=== PATIENT | male | born 1935 | race Caucasian/White ===

== ENCOUNTER 2017-07-27 15:15 | Inpatient (IN) ==
--- NOTE | 2017-07-27 16:05 | Emergency Department Note ---
Disposition Clinical Impression: Hepatic encephalopathy, Weakness, Serum ammonia increased Cholelithiasis Qualifiers: Cholelithiasis location: gallbladder Cholecystitis presence: without cholecystitis Biliary obstruction: without biliary obstruction Qualified Code(s) : K80.20 - Calculus of gallbladder without cholecystitis without obstruction Disposition: Admitted As Inpatient Condition: Fair Time of Disposition: 19:14 General Adult HPI - General Chief complaint: ED Altered Mental Status Stated complaint: weak Time Seen by Provider: 07/27/17 15:16 Source: EMS Limitations: no limitations Nursing Notes Reviewed: Yes Vital Signs Reviewed: Yes - History of Present Illness HPI Narrative: 81-year-old male complains of generalized weakness 3 days along with bowel and bladder incontinence. Patient has a history of Alzheimer's dementia and had a recent fall one day ago while trying to use the bathroom. Patient complains of pain in the right upper quadrant right flank and right CVA area. Patient states he thinks he hit his head as well but is not on any anticoagulants. 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 Patient is on lactulose 20 mg twice a day. Pain Scale: 0 - Related Data Home Medications Medication Instructions Recorded Confirmed Lactobacillus Acidophilus/Pect 1 each PO DAILY 03/26/15 07/27/17 [Acidophilus-Pectin Capsule] Cyanocobalamin (Vitamin B-12) 1,000 mcg PO DAILY 04/27/15 07/27/17 [Vitamin B-12] Lactulose 20 gm PO BID 04/27/15 07/27/17 Multivitamin [Multi-Day Vitamins] 1 each PO DAILY 04/27/15 07/27/17 Mv-Mn/FA/Vit K1/Lycop/Lut/Zeax 2 tab PO DAILY 04/27/15 07/27/17 [Ocuvite Eye + Multi Tablet] Pantoprazole Sodium 40 mg PO DAILY 04/27/15 07/27/17 Furosemide [Lasix] 40 mg PO DAILY 07/29/15 07/27/17 Azithromycin [Azithromycin 6-Tab 250 mg PO PER PKG DI 07/27/17 07/27/17 Pack] Benzonatate [Tessalon] 100 mg PO TID PRN 07/27/17 07/27/17 Docusate [Colace] 100 mg PO BID PRN 07/27/17 07/27/17 Donepezil HCl [Aricept] 10 mg PO HS 07/27/17 07/27/17 Gabapentin [Neurontin] 300 mg PO BID 07/27/17 07/27/17 Ipratropium/Albuterol Neb [Duoneb] 3 ml IH Q6H PRN 07/27/17 07/27/17 Nadolol [Nadolol] 20 g PO DAILY 07/27/17 07/27/17 Spironolactone [Aldactone] 100 mg PO DAILY 07/27/17 07/27/17 Allergies Allergy/AdvReac Type Severity Reaction Status Date / Time acetaminophen [From Percocet] Allergy Nausea Verified 06/15/17 07:35 ciprofloxacin [From Cipro] AdvReac See Verified 07/27/17 17:25 Comments metronidazole [From Flagyl] AdvReac Dizziness Verified 07/27/17 17:25 Oxycodone [From Percocet] AdvReac Nausea Verified 07/27/17 17:25 All systems ED: reviewed and negative except as stated. Review of Systems: As Per HPI Constitutional: Reports: weakness. Denies: fever, chills ENT ED: Denies: congestion Cardiovascular: Denies: chest pain, palpitations Respiratory: Denies: cough, dyspnea, wheezes Gastrointestinal: Reports: abdominal pain Past Medical History - Past Medical History Attestation: Yes The following information was validated with the patient. Source: patient, nursing notes reviewed Medical history: Reports: cirrhosis, dementia, liver disease Psychiatric history: Reports: no psych history - Social History Smoking Status: Never smoker Smokeless Tobacco Status: No Alcohol use: Reports: none Drug use: Reports: none Physical Exam Vital Signs Temperature 97.5 F L 07/27/17 15:16 Pulse Rate 49 07/27/17 15:16 Respiratory Rate 16 07/27/17 15:16 Blood Pressure 137/55 07/27/17 15:16 O2 Sat by Pulse Oximetry 97 07/27/17 15:16 Temperature 97.5 F L 07/27/17 15:16 Pulse Rate 49 07/27/17 15:16 Respiratory Rate 16 07/27/17 15:16 Blood Pressure 137/55 07/27/17 15:16 O2 Sat by Pulse Oximetry 97 07/27/17 15:16 Oxygen Delivery Oxygen Delivery Room Air CONSTITUTIONAL: Alert and oriented X3, well-nourished, well appearing, in no apparent distress HEAD: Normocephalic; atraumatic. EYES: PERRL, no scleral icterus. NOSE: The nose is normal in appearance without rhinorrhea RESP: Normal chest excursion with respiration; breath sounds clear and equal bilaterally; no wheezes, rhonchi, or rales CARD: Regular rhythm, without murmurs, rub or gallop ABD: Non-distended; tender in the right upper quadrant to palpation, soft, without rigidity, rebound or guarding SKIN: Normal for age and race; warm and dry; no apparent lesions NEUROLOGICAL: Patient is alert and oriented times three. Cranial nerves III- XII are intact. Sensory and motor functions are intact. Strength is 5/5 for flexion and extension in all upper extremities. Patient has bilateral lower extremity neuropathy and weakness. Finger to nose testing is equal and normal bilaterally. No dysdiadochokinesis - General Limitations: no limitations General appearance: alert, in no apparent distress Course - Reevaluation(s) Reevaluation #2: Bedside ultrasound taken which shows no urinary retention. Urinary bladder currently 120 mL. Patient does have large prostate measuring approximately 3.09 x3.29 cm on ultrasound. Time: 15:05 Reevaluation #3: Evaluation complete. Patient being admitted, and patient is doing well Time: 19:16 Vital Signs Temperature 97.5 F L 07/27/17 15:16 Pulse Rate 49 07/27/17 15:16 Respiratory Rate 16 07/27/17 15:16 Blood Pressure 137/55 07/27/17 15:16 O2 Sat by Pulse Oximetry 97 07/27/17 15:16 Temperature 97.5 F L 07/27/17 15:16 Pulse Rate 55 07/27/17 19:40 Respiratory Rate 16 07/27/17 19:40 Blood Pressure 119/52 07/27/17 19:40 O2 Sat by Pulse Oximetry 98 07/27/17 19:40 Oxygen Delivery Oxygen Delivery Room Air Medical Decision Making - [facility] Narrative Medical decision making narrative: Generalized weakness with acute onset 2 days with urinary and bowel incontinence which is concerning for: Normal pressure hydrocephalus, cauda equina syndrome, UTI, intestinal neoplasm. CT head, CT abdomen and pelvis ordered and labs ordered. CT scan shows cholelithiasis without acute cholecystitis. Stable small amount of ascites, and cirrhosis. They do see a linear opacity in the lower lung [place] and suggests dedicated chest CT. Chest x-ray unremarkable for any intra-cardio pulmonary abnormalities. Patient's labs show hyponatremia 129 and elevated liver enzymes, elevated alkaline phosphatase, an elevated ammonia. Patient is already on lactulose. Patient started on IV normal saline to help correct sodium. Plan is for admission. I discussed this plan with the family and the patient who all except. Patient is being admitted for weakness and confusion secondary to hepatic encephalopathy with elevated ammonia and hyponatremia. Currently the patient is stable and doing well. Patient has been accepted for admission by hospitalist José Miguel Smith.1910 hrs. - Lab Data Lab results reviewed: Yes I reviewed the patient's lab results. Lab results narrative: Short CBC 07/27/17 Range/Units 16:30 WBC 4.7 (4.3-11.1) K/mcL Hgb 10.5 L (12.9-16.9) g/dL Hct 30.7 L (37.5-50.1) % Plt Count 81 L (140-400) K/mcL Neutrophils # 1.8 (1.6-8.9) K/mcL BMP 07/27/17 Range/Units 16:30 Sodium 129 L (136-145) mEq/L Potassium 4.5 (3.5-5.1) mEq/L Chloride 101 (98-107) mEq/L Carbon Dioxide 25 (23-29) mEq/L BUN 18 (8-23) mg/dL Creatinine 0.76 (0.70-1.30) mg/dL Glucose 129 H (70-105) mg/dL Calcium 8.1 L (8.6-10.3) mg/dL Cardiac Enzymes 07/27/17 Range/Units 16:30 Troponin I < 0.03 (< 0.04) ng/mL Liver Function 07/27/17 07/27/17 Range/Units 16:30 16:30 Total Bilirubin 1.1 H 1.1 H (0.3-1.0) mg/dL Direct Bilirubin 0.3 H (0.0-0.2) mg/dL AST 52 H 52 H (13-39) Units/L ALT 24 24 (7-52) Units/L Alkaline Phosphatase 108 H 107 H (34-104) Units/L Albumin 2.5 L 2.5 L (3.5-5.7) g/dL Urine 02/02/18 Range/Units 16:09 Urine Color Yellow (Yellow) Urine Clarity Cloudy A (Clear) Urine pH 6.0 (5.0-8.0) pH Units Ur Specific [place] 1.024 (1.010-1.025) Urine Protein Negative (Neg-Trace) mg/dL Urine Glucose (UA) Normal (Normal) mg/dL Result diagrams: 07/27/17 16:30 07/27/17 16:30 Lab Results 07/27/17 07/27/17 07/27/17 Range/Units 16:09 16:30 16:30 WBC 4.7 (4.3-11.1) K/mcL RBC 3.07 L (4.19-5.50) M/mcL Hgb 10.5 L (12.9-16.9) g/dL Hct 30.7 L (37.5-50.1) % MCV 100.0 (83.0-100.0) fL MCH 34.2 H (28.0-33.3) pg MCHC 34.2 (31.6-35.5) g/dL RDW 15.0 H (11.5-14.5) % Plt Count 81 L (140-400) K/mcL MPV 10.4 (9.4-12.4) fL Seg Neutrophils % 38.0 % Lymphocytes % 34.0 % Monocytes % 28.0 % Neutrophils # 1.8 (1.6-8.9) K/mcL Lymphocytes # 1.6 (0.6-4.6) K/mcL Monocytes # 1.3 (0.0-1.3) K/mcL Reactive Lymphocytes Present A (Not Present) Smudge Cells Present A (Not Present) Platelet Estimate Decreased L (Normal) Immature Plt Fraction 5.2 (1.1-6.1) % Sodium (136-145) mEq/L Potassium (3.5-5.1) mEq/L Chloride (98-107) mEq/L Carbon Dioxide (23-29) mEq/L BUN (8-23) mg/dL Creatinine (0.70-1.30) mg/dL Est GFR ( Amer) (> 60) Est GFR (Non-Af Amer) (> 60) BUN/Creatinine Ratio (6-26) Glucose (70-105) mg/dL Calculated Osmolality (280-300) Lactic Acid 1.9 (0.5-2.2) mmol/L Calcium (8.6-10.3) mg/dL Total Bilirubin (0.3-1.0) mg/dL Direct Bilirubin (0.0-0.2) mg/dL Indirect Bilirubin (0.0-1.2) mg/dL AST (13-39) Units/L ALT (7-52) Units/L Alkaline Phosphatase (34-104) Units/L Ammonia (16-53) mcmol/L Troponin I (< 0.04) ng/mL Serum Total Protein (6.4-8.9) g/dL Albumin (3.5-5.7) g/dL Globulin (2.4-3.5) g/dL Albumin/Globulin Ratio (1.1-2.2) Lipase (11-82) Units/L Urine Color Yellow (Yellow) Urine Clarity Cloudy A (Clear) Urine pH 6.0 (5.0-8.0) pH Units Ur Specific [place] 1.024 (1.010-1.025) Urine Protein Negative (Neg-Trace) mg/dL Urine Glucose (UA) Normal (Normal) mg/dL Urine Ketones Negative (Negative) mg/dL Urine Blood Negative (Negative) Urine Nitrite Negative (Negative) Urine Bilirubin Negative (Negative) Urine Urobilinogen Normal (Normal) mg/dL Ur Leukocyte Esterase Negative (Negative) Urine Microscopic RBC 0-3 (0-3) per hpf Urine Microscopic WBC 0-3 (0-3) per hpf Ur Squamous Epith Cells Few (None-Few) per lpf Urine Bacteria Few (None-Few) per hpf Hyaline Casts None Seen (None-Few) per lpf Urine Yeast Test Not Performed Ur Culture Indicated? NO (NO) 07/27/17 07/27/17 07/27/17 Range/Units 16:30 16:30 16:30 WBC (4.3-11.1) K/mcL RBC (4.19-5.50) M/mcL Hgb (12.9-16.9) g/dL Hct (37.5-50.1) % MCV (83.0-100.0) fL MCH (28.0-33.3) pg MCHC (31.6-35.5) g/dL RDW (11.5-14.5) % Plt Count (140-400) K/mcL MPV (9.4-12.4) fL Seg Neutrophils % % Lymphocytes % % Monocytes % % Neutrophils # (1.6-8.9) K/mcL Lymphocytes # (0.6-4.6) K/mcL Monocytes # (0.0-1.3) K/mcL Reactive Lymphocytes (Not Present) Smudge Cells (Not Present) Platelet Estimate (Normal) Immature Plt Fraction (1.1-6.1) % Sodium 129 L (136-145) mEq/L Potassium 4.5 (3.5-5.1) mEq/L Chloride 101 (98-107) mEq/L Carbon Dioxide 25 (23-29) mEq/L BUN 18 (8-23) mg/dL Creatinine 0.76 (0.70-1.30) mg/dL Est GFR ( Amer) > 60 (> 60) Est GFR (Non-Af Amer) > 60 (> 60) BUN/Creatinine Ratio 24 (6-26) Glucose 129 H (70-105) mg/dL Calculated Osmolality 272 L (280-300) Lactic Acid (0.5-2.2) mmol/L Calcium 8.1 L (8.6-10.3) mg/dL Total Bilirubin 1.1 H 1.1 H (0.3-1.0) mg/dL Direct Bilirubin 0.3 H (0.0-0.2) mg/dL Indirect Bilirubin 0.8 (0.0-1.2) mg/dL AST 52 H 52 H (13-39) Units/L ALT 24 24 (7-52) Units/L Alkaline Phosphatase 107 H 108 H (34-104) Units/L Ammonia (16-53) mcmol/L Troponin I < 0.03 (< 0.04) ng/mL Serum Total Protein 6.0 L 6.1 L (6.4-8.9) g/dL Albumin 2.5 L 2.5 L (3.5-5.7) g/dL Globulin 3.5 3.6 H (2.4-3.5) g/dL Albumin/Globulin Ratio 0.7 L 0.7 L (1.1-2.2) Lipase (11-82) Units/L Urine Color (Yellow) Urine Clarity (Clear) Urine pH (5.0-8.0) pH Units Ur Specific [place] (1.010-1.025) Urine Protein (Neg-Trace) mg/dL Urine Glucose (UA) (Normal) mg/dL Urine Ketones (Negative) mg/dL Urine Blood (Negative) Urine Nitrite (Negative) Urine Bilirubin (Negative) Urine Urobilinogen (Normal) mg/dL Ur Leukocyte Esterase (Negative) Urine Microscopic RBC (0-3) per hpf Urine Microscopic WBC (0-3) per hpf Ur Squamous Epith Cells (None-Few) per lpf Urine Bacteria (None-Few) per hpf Hyaline Casts (None-Few) per lpf Urine Yeast Ur Culture Indicated? (NO) 07/27/17 07/27/17 Range/Units 16:30 17:16 WBC (4.3-11.1) K/mcL RBC (4.19-5.50) M/mcL Hgb (12.9-16.9) g/dL Hct (37.5-50.1) % MCV (83.0-100.0) fL MCH (28.0-33.3) pg MCHC (31.6-35.5) g/dL RDW (11.5-14.5) % Plt Count (140-400) K/mcL MPV (9.4-12.4) fL Seg Neutrophils % % Lymphocytes % % Monocytes % % Neutrophils # (1.6-8.9) K/mcL Lymphocytes # (0.6-4.6) K/mcL Monocytes # (0.0-1.3) K/mcL Reactive Lymphocytes (Not Present) Smudge Cells (Not Present) Platelet Estimate (Normal) Immature Plt Fraction (1.1-6.1) % Sodium (136-145) mEq/L Potassium (3.5-5.1) mEq/L Chloride (98-107) mEq/L Carbon Dioxide (23-29) mEq/L BUN (8-23) mg/dL Creatinine (0.70-1.30) mg/dL Est GFR ( Amer) (> 60) Est GFR (Non-Af Amer) (> 60) BUN/Creatinine Ratio (6-26) Glucose (70-105) mg/dL Calculated Osmolality (280-300) Lactic Acid (0.5-2.2) mmol/L Calcium (8.6-10.3) mg/dL Total Bilirubin (0.3-1.0) mg/dL Direct Bilirubin (0.0-0.2) mg/dL Indirect Bilirubin (0.0-1.2) mg/dL AST (13-39) Units/L ALT (7-52) Units/L Alkaline Phosphatase (34-104) Units/L Ammonia 69 H (16-53) mcmol/L Troponin I (< 0.04) ng/mL Serum Total Protein (6.4-8.9) g/dL Albumin (3.5-5.7) g/dL Globulin (2.4-3.5) g/dL Albumin/Globulin Ratio (1.1-2.2) Lipase 51 (11-82) Units/L Urine Color (Yellow) Urine Clarity (Clear) Urine pH (5.0-8.0) pH Units Ur Specific [place] (1.010-1.025) Urine Protein (Neg-Trace) mg/dL Urine Glucose (UA) (Normal) mg/dL Urine Ketones (Negative) mg/dL Urine Blood (Negative) Urine Nitrite (Negative) Urine Bilirubin (Negative) Urine Urobilinogen (Normal) mg/dL Ur Leukocyte Esterase (Negative) Urine Microscopic RBC (0-3) per hpf Urine Microscopic WBC (0-3) per hpf Ur Squamous Epith Cells (None-Few) per lpf Urine Bacteria (None-Few) per hpf Hyaline Casts (None-Few) per lpf Urine Yeast Ur Culture Indicated? (NO) - Radiology Data Radiology results reviewed: Yes I reviewed the patient's radiology results. Chest X-Ray 07/27/17 15:35 IMPRESSION: Moderate hiatal hernia. Somewhat linear opacity is noted in the retrocardiac region of the left lung base likely correlating to the area seen on recent CT from 06/15/2017. Consider dedicated CT of the chest to evaluate for resolution. Otherwise no acute cardiopulmonary findings. D/ / 07/27/2017 16:01:48 Renée Fields MD / danny Interpreting Provider: Renée Fields MD Head CT 07/27/17 15:46 IMPRESSION: Stable CT brain with no acute intracranial abnormality. D/ / Josh Esquivel MD / Josh Esquivel MD Interpreting Provider: Josh Esquivel MD Abdomen/Pelvis CT 07/27/17 16:01 IMPRESSION: Cirrhosis and portal hypertension. Small volume ascites, similar to previous exam. Cholelithiasis. No evidence of acute cholecystitis. D/ / Elenita Erickson MD / Elenita Erickson MD Interpreting Provider: Elenita Erickson MD - EKG Data EKG #1 EKG attestation: Yes I reviewed and interpreted this EKG. EKG results narrative: EKG taken to July 2017 at 1526 shows sinus bradycardia at a rate of 53 beats minute with no acute ST elevations or depressions Unique, no gross widening or QT prolongation. No Wellens, no Brugada. His EKG for comparison taken 06/15/2017 also shows a sinus bradycardia at a rate of 58 bpm no signs of ischemia. EKG looks similar waveform to today's EKG. Attestation Statement - Attestation Attestation: I examined this patient and my medical decision-making was reviewed with the Resident Physician. I agree with the documented findings, disposition and treatment plan as described except to the extent set forth below. Patient presents to the ED by EMS with a chief complaint of generalized weakness. Frequent falls. Increasing altered mental status. Frequent stool incontinence. He is accompanied by his who states she just wants to make it better. Patient has dementia. He is on lactulose for liver disease and elevated ammonia levels. He has not had a fever or been coughing. On examination he is in no distress. His abdomen is soft. He is awake alert. He is oriented to self and place. Pupils equally reactive. Moving all extremities. Plan. Patient's sodium is a little lower than normal. His ammonia is elevated. His abdomen is soft. It is not felt to be septic. He is given some IV hydration. Lactulose for elevated ammonia. Will be admitted to the hospitalist.
[2017-07-27 16:38] LABS: Bilirubin,Urine Negative (Negative); Blood,Urine Negative (Negative); Clarity,Urine Cloudy (Clear); Color,Urine Yellow (Yellow); Glucose,Urine (UA) Normal (Normal); Ketones,Urine Negative (Negative); Leukocyte Esterase,Urine Negative (Negative); Nitrite,Urine Negative (Negative); Protein,Urine Negative (Neg-Trace); Specific Gravity,Urine 1.024 (1.010-1.025); Urobilinogen,Urine Normal (Normal)
[2017-07-27 16:43] LABS: Hyaline Casts,Urine None Seen per lpf (None-Few); RBC,Urine 0-3 per hpf (0-3); Squamous Epithelial Cell,Urine Few per lpf (None-Few); WBC,Urine 0-3 per hpf (0-3)
[2017-07-27 16:53] LABS: Bacteria,Urine Few per hpf (None-Few)
[2017-07-27 16:57] LABS: Hematocrit 30.7 % (37.5-50.1); Hemoglobin 10.5 g/dL (12.9-16.9); Immature Platelets 5.2 % (1.1-6.1); Mean Corpuscular HGB Conc 34.2 g/dL (31.6-35.5); Mean Corpuscular Hemoglobin 34.2 pg (28.0-33.3); Mean Platelet Volume 10.4 fL (9.4-12.4); Monocytes # 1.3 K/mcL (0.0-1.3); Red Blood Count 3.07 M/mcL (4.19-5.50)
[2017-07-27 17:02] LABS: Platelet Count 81 K/mcL (140-400)
[2017-07-27 17:10] LABS: Alanine Aminotransferase 24 Units/L (7-52); Albumin 2.5 g/dL (3.5-5.7); Albumin/Globulin Ratio 0.7 (1.1-2.2); Alkaline Phosphatase 107 Units/L (34-104); Aspartate Amino Transferase 52 Units/L (13-39); BUN/Creatinine Ratio 24 (6-26); Bilirubin,Total 1.1 mg/dL (0.3-1.0); Blood Urea Nitrogen 18 mg/dL (8-23); Calcium 8.1 mg/dL (8.6-10.3); Carbon Dioxide 25 mEq/L (23-29); Chloride 101 mEq/L (98-107); Globulin 3.5 g/dL (2.4-3.5); Glucose 129 mg/dL (70-105); Osmolality,Calculated 272 (280-300); Potassium 4.5 mEq/L (3.5-5.1); Sodium 129 mEq/L (136-145); eGFR For African Americans > 60 (> 60); eGFR For Non-African Americans > 60 (> 60)
[2017-07-27 17:13] LABS: Albumin 2.5 g/dL (3.5-5.7); Albumin/Globulin Ratio 0.7 (1.1-2.2); Bilirubin,Direct 0.3 mg/dL (0.0-0.2); Bilirubin,Indirect 0.8 mg/dL (0.0-1.2); Bilirubin,Total 1.1 mg/dL (0.3-1.0); Globulin 3.6 g/dL (2.4-3.5); Total Protein 6.1 g/dL (6.4-8.9)
[2017-07-27] MEDS ORDERED: 0.9 % Sodium Chloride 1,000 ML IVC ONE (17:52)
[2017-07-27] MEDS ORDERED: Lactulose Oral Soln 20 GM/30 ML UDC PO ONE (17:54)
[2017-07-27 18:04] LABS: Lymphocytes # 1.6 K/mcL (0.6-4.6); Neutrophils # 1.8 K/mcL (1.6-8.9); Platelet Estimate Decreased (Normal); Reactive Lymphocytes Present (Not Present); Smudge Cells Present (Not Present)
[2017-07-27] MEDS ORDERED: Naloxone 0.4 MG/ML INJ IVP PRN (20:35)
[2017-07-27] MEDS ORDERED: Benzonatate 100 MG CAPSULE PO PRN (20:38)
--- NOTE | 2017-07-27 20:50 | Internal Med History&Physical ---
<Reginaldo Gruber - Last Filed: 07/27/17 22:43> Date of Encounter: 07/27/17 Time of Encounter: 20:44 Assessment and Plan (1) Acute encephalopathy Current visit: Yes Status: Acute Acute encephalopathy, likely secondary to liver cirrhosis of unknown etiology vs. dementia vs. infectious etiology Patient is generalized weakness and increased confusion, ammonia level 69 in a known hepatic cirrhosis patient Patient has been having loose stools associated with lactulose, however he also has increased ascites due to portal hypertension It is challenging to discern the degree to which cirrhosis is impacting his mental function vs. baseline dementia Additionally, CXR does show possible infiltrates in the Left lower lobe, which could represent pneumonia in a patient who has had recent URI symptoms We will increase the patient's lactulose to TID, start IV Levaquin for suspected pneumonia (2) Pneumonia Current visit: Yes Status: Suspected Left lower lobe pneumonia, suspected Patient has been treated for recent URI symptoms with azithromycin and has not improved CXR shows retrocardiac haziness that could represent infiltrate in the LLL We will get blood cultures and treat for suspected CAP with IV Levaquin Qualifiers: Pneumonia type: due to unspecified organism Laterality: left Lung location: lower lobe of lung Qualified Code(s): J18.1 - Lobar pneumonia, unspecified organism (3) Dementia Current visit: Yes Status: Acute Alzheimer's dementia with some basline independence with ADLs According to family, his baseline mental status is usually fairly good, and he just becomes forgetful at times I will continue his home medications and treat hepatic encephalopathy in hopes of improving mental status Qualifiers: Dementia type: Alzheimer's disease Alzheimer's disease onset: late-onset Dementia behavioral disturbance: without behavioral disturbance Qualified Code (s): G30.1 - Alzheimer's disease with late onset; F02.80 - Dementia in other diseases classified elsewhere without behavioral disturbance; F02.80 - Dementia in other diseases classified elsewhere without behavioral disturbance; F02.80 - Dementia in other diseases classified elsewhere without behavioral disturbance (4) Cirrhosis Current visit: Yes Status: 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 Patient currently in hyperammonemic state We will increase lactulose to TID Although he has associated portal hypertension, the patient is having suspected symptomatic bradycardia We will hold nadolol Qualifiers: Hepatic cirrhosis type: unspecified hepatic cirrhosis Ascites presence: with ascites Qualified Code(s): K74.60 - Unspecified cirrhosis of liver (5) Bradycardia Current visit: Yes Status: Acute Bradycardia that is possibly symptomatic The patient has been weak and has had falls recently On presentation, his HR has remained <60bpm consistently The patient may be experiencing symptomatic bradycardia which could impact his ability to ambulate appropriately I will place the 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 dementia vs. generalized weakness/deconditioning vs. symptomatic bradycardia Patient will be placed on fall precautions PT/OT Consult in the morning (7) Pancytopenia Status: Chronic Chronic pancytopenia with worsening anemia Hgb 10.5, down from 11.5 on last visit. MCV 100 Apparently has a history of pancytopenia and has been seen by oncology/ hematology No evidence of acute bleeding. No hematemasis, hematochezia, melena I will check occult blood in the stool, and I will check MMA/B12 considering AMS /Weakness + macrocytic anemia Consider GI consult as needed (8) DVT prophylaxis Current visit: Yes Status: Acute SCDs for now, patient is pancytopenic with cirrhosis. We will check coag panel Internal Medicine - H&P: HPI Chief complaint: Confusion and weakness Admitted From: Emergency Dept Plans for Post Hospital Care: Home History of present illness: Mr. Meneses is a 81 year old male with a history of hepatic cirrhosis, Alzheimer's , esophageal varices, hiatal hernia, gastric ulcers who presents to the ED with 4 day history of generalized weakness and altered mental status. The patient has apparent long-term hepatic cirrhosis of unknown etiology which has not acutely worsened over the past 2-3 months. Specifically, in May he started to become extremely confused at different times, and has been more weak. In the past week he has become increasingly confused as noted by his family. He apparently has had falls at least once over the last 3 days each day. Additionally, patient had an episode of urinary and bowel incontinence earlier today which he has not previously experienced. Apparently this episode was because he was unable to make it to the bathroom in time. His family is concerned because they said this is not like him. He does have a history of dementia, however he usually is somewhat independent in his ADLs and can walk with a walker with some assistance and use the restroom by himself. The past 3 days he has fallen in the bathroom twice because he has leaned too far over while toileting. The family's knowledge she has had no loss of consciousness. He does think he may have hit his head but he is not sure. In addition to these symptoms, the patient's family mentions that he has been battling bronchitis for the past 2 weeks which she has been unable to care Has had 2 courses of azithromycin which have not been helpful. He denies chest pain, severe shortness of breath, abdominal pain. He does have some nausea and vomiting and he takes lactulose daily so he does have some diarrhea. Apart from episode of bladder and bowel control loss this afternoon, he has had no other urinary or bowel symptoms. Past Med Surg Social Fam HX - Past Medical History Medical history: cirrhosis, dementia, liver disease Psychiatric history: no psych history - Social History Smoking Status: Never smoker Smokeless Tobacco Status: No Alcohol use: none Drug use: none Internal Medicine - H&P: Meds Lactobacillus Acidophilus/Pect [Acidophilus-Pectin Capsule] 1 each PO DAILY 08/09 [History] Cyanocobalamin (Vitamin B-12) [Vitamin B-12] 1,000 mcg PO DAILY 04/27/15 [ History] Lactulose 20 gm PO BID 04/27/15 [History] Multivitamin [Multi-Day Vitamins] 1 each PO DAILY 04/27/15 [History] Mv-Mn/FA/Vit K1/Lycop/Lut/Zeax [Ocuvite Eye + Multi Tablet] 2 tab PO DAILY 04/27 [History] Pantoprazole Sodium 40 mg PO DAILY 04/27/15 [History] Furosemide [Lasix] 40 mg PO DAILY 07/29/15 [History] Azithromycin [Azithromycin 6-Tab Pack] 250 mg PO PER PKG DI 07/27/17 [History] Benzonatate [Tessalon] 100 mg PO TID PRN 07/27/17 [History] Docusate [Colace] 100 mg PO BID PRN 07/27/17 [History] Donepezil HCl [Aricept] 10 mg PO HS 07/27/17 [History] Gabapentin [Neurontin] 300 mg PO BID 07/27/17 [History] Ipratropium/Albuterol Neb [Duoneb] 3 ml IH Q6H PRN 07/27/17 [History] Nadolol [Nadolol] 20 g PO DAILY 07/27/17 [History] Spironolactone [Aldactone] 100 mg PO DAILY 07/27/17 [History] 3 Allergy/AdvReac Type Severity Reaction Status Date / Time acetaminophen [From Percocet] Allergy Nausea Verified 06/15/17 07:35 ciprofloxacin [From Cipro] AdvReac See Verified 07/27/17 17:25 Comments metronidazole [From Flagyl] AdvReac Dizziness Verified 07/27/17 17:25 Oxycodone [From Percocet] AdvReac Nausea Verified 07/27/17 17:25 All Systems PM: A 10-system review of systems was performed and is negative for pertinent findings except as documented above in the HPI. Review of systems: ROS is provided primarily from patient's family as the patient is not a reliable source. Constitutional: Denies fevers, chills, Admits to weight gain and generalized weakness. Head/Neck: Denies GREER, neck stiffness EENT: Denies vision changes/blurriness, rhinorrhea, congestion, sore throat CVS: Denies chest pain, palpitations, TERESA, orthopnea, PND. Admits to baseline edema in his LE's b/l. Pulm: Increased cough with sputum production over two weeks time. Occasional wheezing GI: Denies abdominal pain, melena, hematemasis. Admits to nausea and vomiting : Denies dysuria, increased frequency, urgency, hematuria Heme: Denies ease of bleeding or bruising MSK: Denies joint pain, limited ROM Skin: Denies rashes, ulcers, color changes Neuro: Denies GREER, paresthesias, focal deficits, ataxia. Admits to generalized weakness. - Constitutional Vitals: Temp Pulse Resp BP Pulse Ox 97.5 F L 55 16 119/52 98 07/27/17 15:16 07/27/17 19:40 07/27/17 19:40 07/27/17 19:40 07/27/17 19:40 Exam: Gen: Vitals noted. No acute distress. AAOx person and place HEENT: PERRL/EOMI, no obvious scleral icterus, oropharynx clear with poor dentition, Normocephalic, atraumatic Neck: Supple. No adenopathy. Cardiac: RRR, no murmur, +S1/S2 Pulmonary: Fine crackles heard in R. Lung base without other indication of rhonchi, wheezes. Abdomen: soft, nontender, BS noted, no guarding. No obvious fluid wave Back: Nontender throughout. MSK: ROM intact, no joint swelling noted Extremities: 1+ LE edema b/l that is apparently at baseline. No sore calf Neuro: A&Ox3, moves all extremities, no focal deficits Psych: Appropriate mood and behavior. Pleasantly confused Internal Med - H&P Results - Labs CBC & Chem 7: 07/27/17 16:30 07/27/17 16:30 <Jose Wilburn - Last Filed: 07/28/17 01:29> Date of Encounter: 07/28/17 Time of Encounter: 01:00 Past Med Surg Social Fam HX - Past Surgical History Surgical History: other (variceal banding/EGD) - Additional Family History Additional family history: No FH cirrhosis/PAIGE - Constitutional Vitals: Temp Pulse Resp BP Pulse Ox 98.4 F 50 15 104/57 97 07/28/17 00:04 07/28/17 00:04 07/28/17 00:04 07/28/17 00:04 07/28/17 00:04 General appearance: Present: cooperative, A&O X 2, pleasant - Head Head exam: Present: atraumatic, normal inspection - Eye Eye exam: Present: EOMI, PERRL. Absent: scleral icterus - Neck Neck exam general surgery: Present: full ROM, supple. Absent: tenderness, nuchal rigidity - Respiratory Respiratory exam: Present: rales (left base), rhonchi. Absent: chest wall tenderness, wheezes - Cardiovascular Cardiovascular exam: Present: RRR, +S1, +S2. Absent: diastolic murmur, systolic murmur - GI/Abdominal GI/Abdominal exam: Present: normal bowel sounds, soft. Absent: mass, tenderness - Extremities Exam Extremities exam: Present: warm, radial pulses palpable and symmetrical. Absent : calf tenderness, tenderness - Back Exam Back exam: Absent: CVA tenderness (L), CVA tenderness (R) - Neurological Exam Neurological exam: Present: altered, CN II-XII intact, no focal deficits - Skin Skin exam: Present: dry, warm Internal Med - H&P Results - Labs CBC & Chem 7: 07/27/17 16:30 07/27/17 16:30 - EKG Data -: EKG Interpreted by Myself (sinus bradycardia) - Diagnostic Studies Chest x-ray Status: image reviewed by me (left lower infiltrate) - Attending Attestation I discussed the patient [place], PMH, ROS, lab data, and exam findings with Dr. Gruber. I then saw and examined patient independently as well. I met with patient and his son. His son confirms patient has history of dementia; however, his current state is worse than his baseline. He has fallen several times in recent weeks, complaining of lightheadedness often. I noted his bradycardia and discussed with his son who also noted patient has had bradycardia at home. We are stopping his BB and will monitor his heart rate. Additionally, I suspect he has pneumonia based upon exam, history of bronchitis for 2 weeks, and his xray findings. We are therefore treating this as well. Patient's son is very agreeable and appreciates the plan. Other than my comments above and noted exam findings, I agree with Dr. Gruber' s assessment and plan.
[2017-07-27] MEDS ORDERED: Ipratropium/Albuterol Neb 3 ML IH PRN (22:00)
[2017-07-27] MEDS: Gabapentin 300 MG CAPSULE PO SCH (22:29)
[2017-07-27 23:36] LABS: INR 1.2; Prothrombin Time 13.3 Seconds (9.4-12.1)
[2017-07-28 03:49] LABS: Influenza A PCR Positive (Negative); Influenza B PCR Negative (Negative); Resp. Syncytial Virus PCR Negative (Negative)
[2017-07-28 04:59] LABS: Mean Corpuscular Hemoglobin 33.6 pg (28.0-33.3)
[2017-07-28 05:01] LABS: Basophils % 0.3 %; Eosinophils # 0.2 K/mcL (0.0-0.6); Eosinophils % 5.5 %; Hematocrit 29.4 % (37.5-50.1); Hemoglobin 9.8 g/dL (12.9-16.9); Immature Granulocytes % 0.3 % (0-4); Immature Platelets 5.2 % (1.1-6.1); Lymphocytes # 1.3 K/mcL (0.6-4.6); Lymphocytes % 36.2 %; Mean Corpuscular HGB Conc 33.3 g/dL (31.6-35.5); Mean Corpuscular Volume 100.7 fL (83.0-100.0); Mean Platelet Volume 10.6 fL (9.4-12.4); Monocytes # 0.8 K/mcL (0.0-1.3); Monocytes % 23.2 %; Nucleated Red Blood Cells 0.6 /100 WBC (0); Red Blood Count 2.92 M/mcL (4.19-5.50); Red Cell Distribution Width 14.8 % (11.5-14.5); Segmented Neutrophils % 34.5 %
[2017-07-28 05:23] LABS: BUN/Creatinine Ratio 27 (6-26); Blood Urea Nitrogen 17 mg/dL (8-23); Calcium 7.9 mg/dL (8.6-10.3); Carbon Dioxide 22 mEq/L (23-29); Chloride 105 mEq/L (98-107); Glucose 81 mg/dL (70-105); Osmolality,Calculated 271 (280-300); Potassium 4.7 mEq/L (3.5-5.1); Sodium 130 mEq/L (136-145); eGFR For African Americans > 60 (> 60); eGFR For Non-African Americans > 60 (> 60)
[2017-07-28 05:30] LABS: Neutrophils # 1.2 K/mcL (1.6-8.9); Platelet Count 68 K/mcL (140-400)
[2017-07-28 05:32] LABS: Platelet Estimate Decreased (Normal)
[2017-07-28] MEDS: Furosemide 40 MG TABLET PO SCH (08:59)
[2017-07-28] MEDS: Multivit/Ca/Min/Fe/FA 1 TAB TABLET PO SCH (08:59)
[2017-07-28] MEDS: Cyanocobalamin (B-12) 1,000 MCG TABLET PO SCH (08:59)
[2017-07-28] MEDS: Lactulose Oral Soln 20 GM/30 ML UDC PO SCH ×3 (08:59→20:02)
[2017-07-28] MEDS: Lactobacillus 1 EACH CAP.SPRINK PO SCH (08:59)
[2017-07-28] MEDS: Gabapentin 300 MG CAPSULE PO SCH ×2 (08:59→20:02)
[2017-07-28] MEDS: MULTI PO SCH (09:00)
[2017-07-28] MEDS: OCUVITE EYE PO SCH (09:00)
[2017-07-28] MEDS: Levofloxacin 750 MG/150 ML 750 MG/150 ML BAG IVPB SCH (09:00)
--- NOTE | 2017-07-28 14:15 | Event Note ---
Date of Encounter: 07/28/17 Time of Encounter: 13:05 Patient is an 81y/o male admitted for acute change in mental status secondary to hepatic encephalopathy and PNA. Pt positive for influenza and started on Tamiflu. Pt seen and examined with family present at bedside. As per family, pt's mentation improved from previous day will continue Lactulose, IV abx will f/u blood cultures labs and vitals reviewed.
[2017-07-28] MEDS ORDERED: Ondansetron 4 MG/2 ML VIAL IVP PRN (15:37)
[2017-07-28] MEDS: traMADol 50 MG TABLET PO PRN ×2 (16:56→23:00)
[2017-07-29 05:04] LABS: Immature Granulocytes % 0.3 % (0-4)
[2017-07-29 05:05] LABS: Basophils % 0.6 %; Eosinophils # 0.1 K/mcL (0.0-0.6); Eosinophils % 3.9 %; Hematocrit 28.5 % (37.5-50.1); Hemoglobin 9.6 g/dL (12.9-16.9); Immature Platelets 4.6 % (1.1-6.1); Lymphocytes # 1.4 K/mcL (0.6-4.6); Lymphocytes % 44.2 %; Mean Corpuscular HGB Conc 33.7 g/dL (31.6-35.5); Mean Corpuscular Hemoglobin 33.7 pg (28.0-33.3); Mean Platelet Volume 10.1 fL (9.4-12.4); Monocytes # 0.7 K/mcL (0.0-1.3); Monocytes % 21.3 %; Neutrophils # 0.9 K/mcL (1.6-8.9); Nucleated Red Blood Cells 1.3 /100 WBC (0); Red Blood Count 2.85 M/mcL (4.19-5.50); Red Cell Distribution Width 14.8 % (11.5-14.5); Segmented Neutrophils % 29.7 %
[2017-07-29 05:06] LABS: Platelet Count 61 K/mcL (140-400)
[2017-07-29 05:24] LABS: BUN/Creatinine Ratio 21 (6-26); Blood Urea Nitrogen 16 mg/dL (8-23); Calcium 7.8 mg/dL (8.6-10.3); Carbon Dioxide 20 mEq/L (23-29); Chloride 106 mEq/L (98-107); Glucose 80 mg/dL (70-105); Magnesium 1.7 mg/dL (1.6-2.6); Osmolality,Calculated 270 (280-300); Phosphorous 3.9 mg/dL (2.7-4.5); Potassium 4.6 mEq/L (3.5-5.1); Sodium 130 mEq/L (136-145); eGFR For African Americans > 60 (> 60); eGFR For Non-African Americans > 60 (> 60)
[2017-07-29 05:39] LABS: Platelet Estimate Decreased (Normal)
[2017-07-29 05:40] LABS: Microcytosis Present (Not Present)
[2017-07-29] MEDS: traMADol 50 MG TABLET PO PRN (07:56)
[2017-07-29] MEDS: Lactobacillus 1 EACH CAP.SPRINK PO SCH (07:56)
[2017-07-29] MEDS: Furosemide 40 MG TABLET PO SCH (07:56)
[2017-07-29] MEDS: Cyanocobalamin (B-12) 1,000 MCG TABLET PO SCH (07:56)
[2017-07-29] MEDS: Levofloxacin 750 MG/150 ML 750 MG/150 ML BAG IVPB SCH (07:56)
[2017-07-29] MEDS: Gabapentin 300 MG CAPSULE PO SCH ×2 (07:56→20:57)
[2017-07-29] MEDS: Lactulose Oral Soln 20 GM/30 ML UDC PO SCH ×3 (07:56→20:56)
[2017-07-29] MEDS: MULTI PO SCH (07:57)
[2017-07-29] MEDS: Multivit/Ca/Min/Fe/FA 1 TAB TABLET PO SCH (07:57)
[2017-07-29] MEDS: OCUVITE EYE PO SCH (07:57)
--- NOTE | 2017-07-29 10:30 | Internal Med Progress Note ---
Date of Encounter: 07/29/17 Time of Encounter: 09:55 - Assessment and plan (1) Hepatic encephalopathy Current Visit: Yes Status: Acute Assessment and plan: Secondary to underlying Cirrhosis of the liver Titrate lactulose to 3-4 BM a day mental status improved from previous day will continue to closely monitor (2) Pneumonia Current Visit: Yes Status: Acute Assessment and plan: LLL PNA continue IV Levaquin f/u blood cultures Qualifiers: Pneumonia type: due to unspecified organism Laterality: left Lung location: lower lobe of lung Qualified Code(s): J18.1 - Lobar pneumonia, unspecified organism (3) Influenza A Current Visit: Yes Status: Acute Assessment and plan: continue Tamiflu for five days (day 2/5) (4) Bradycardia Current Visit: Yes Status: Acute Assessment and plan: (5) Dementia Current Visit: Yes Status: Chronic Assessment and plan: continue home meds Qualifiers: Dementia type: Alzheimer's disease Alzheimer's disease onset: late-onset Dementia behavioral disturbance: without behavioral disturbance Qualified Code (s): G30.1 - Alzheimer's disease with late onset; F02.80 - Dementia in other diseases classified elsewhere without behavioral disturbance; F02.80 - Dementia in other diseases classified elsewhere without behavioral disturbance; F02.80 - Dementia in other diseases classified elsewhere without behavioral disturbance (6) Frequent falls Current Visit: Yes Status: Chronic Assessment and plan: fall precautions PT/OT evaluation (7) Cirrhosis Current Visit: Yes Status: Chronic Qualifiers: Hepatic cirrhosis type: unspecified hepatic cirrhosis Ascites presence: with ascites Qualified Code(s): K74.60 - Unspecified cirrhosis of liver (8) Pancytopenia Current Visit: Yes Status: Chronic (9) Hypokalemia Current Visit: Yes Status: Resolved (10) DVT prophylaxis Current Visit: Yes Status: Acute Assessment and plan: SCD - Subjective Interval history: Patient seen and examined with family present at bedside. As per family, pt's mental status waxes and wanes, and his mentation is improved from previous day. He is currently AAO x 2. Unclear of the number of bowel movements patient has been having. As per nursing reports, pt only had 1 BM yesterday. As per family, patient had two BM today. - Constitutional Vitals: Temp Pulse Resp BP Pulse Ox 98.1 F 68 16 112/58 93 07/29/17 06:55 07/29/17 06:55 07/29/17 06:55 07/29/17 06:55 07/29/17 06:55 General appearance: Present: cooperative, A&O X 2, pleasant, no acute distress - Head Head exam: Present: atraumatic, normocephalic - Eye Eye exam: Present: conjuntiva pink, sclera anicteric - Respiratory Respiratory exam: Present: CTAB. Absent: rales, respiratory distress, wheezes - Cardiovascular Cardiovascular exam: Present: RRR, +S1, +S2. Absent: diastolic murmur, gallop, rubs, systolic murmur - GI/Abdominal GI/Abdominal exam: Present: normal bowel sounds, soft, no peritoneal signs. Absent: distended, tenderness - Extremities Exam Extremities exam: Present: warm, radial pulses palpable and symmetrical. Absent : calf tenderness - Neurological Exam Neurological exam: Present: alert - Psychiatric Psychiatric exam: Present: normal affect, normal mood Internal Medicine: Result - Labs CBC & Chem 7: 07/29/17 04:54 07/29/17 04:54 Labs: Short CBC 07/29/17 Range/Units 04:54 WBC 3.1 L (4.3-11.1) K/mcL Hgb 9.6 L (12.9-16.9) g/dL Hct 28.5 L (37.5-50.1) % Plt Count 61 L (140-400) K/mcL Neutrophils # 0.9 L (1.6-8.9) K/mcL BMP 07/29/17 04:54 Sodium 130 L Potassium 4.6 Chloride 106 Carbon Dioxide 20 L BUN 16 Creatinine 0.77 Glucose 80 Calcium 7.8 L - ABG Interpretation ABG results: PT/INR, D-dimer PT 13.3 Seconds (9.4-12.1) H 07/27/17 23:23 Consult Discharge Plan - Plan Referrals: Ki Lewis MD [Primary Care Provider] -
[2017-07-30 06:15] LABS: Mean Corpuscular Volume 99.7 fL (83.0-100.0)
[2017-07-30 06:17] LABS: Hematocrit 30.2 % (37.5-50.1); Hemoglobin 10.2 g/dL (12.9-16.9); Immature Platelets 4.3 % (1.1-6.1); Mean Corpuscular HGB Conc 33.8 g/dL (31.6-35.5); Mean Corpuscular Hemoglobin 33.7 pg (28.0-33.3); Mean Platelet Volume 10.6 fL (9.4-12.4); Monocytes # 0.9 K/mcL (0.0-1.3); Nucleated Red Blood Cells 0.6 /100 WBC (0); Red Blood Count 3.03 M/mcL (4.19-5.50); Red Cell Distribution Width 14.9 % (11.5-14.5)
[2017-07-30 06:24] LABS: Platelet Count 69 K/mcL (140-400)
[2017-07-30 06:56] LABS: BUN/Creatinine Ratio 19 (6-26); Blood Urea Nitrogen 14 mg/dL (8-23); Calcium 7.8 mg/dL (8.6-10.3); Carbon Dioxide 21 mEq/L (23-29); Chloride 104 mEq/L (98-107); Glucose 83 mg/dL (70-105); Magnesium 1.5 mg/dL (1.6-2.6); Osmolality,Calculated 272 (280-300); Phosphorous 3.6 mg/dL (2.7-4.5); Potassium 4.2 mEq/L (3.5-5.1); Sodium 131 mEq/L (136-145); eGFR For African Americans > 60 (> 60); eGFR For Non-African Americans > 60 (> 60)
[2017-07-30 07:02] LABS: Lymphocytes # 1.3 K/mcL (0.6-4.6); Neutrophils # 2.5 K/mcL (1.6-8.9)
[2017-07-30 07:03] LABS: Platelet Estimate Decreased (Normal); Reactive Lymphocytes Present (Not Present); Smudge Cells Present (Not Present)
[2017-07-30] MEDS: Cyanocobalamin (B-12) 1,000 MCG TABLET PO SCH (08:15)
[2017-07-30] MEDS: Levofloxacin 750 MG/150 ML 750 MG/150 ML BAG IVPB SCH (08:15)
[2017-07-30] MEDS: Gabapentin 300 MG CAPSULE PO SCH ×2 (08:15→21:42)
[2017-07-30] MEDS: Multivit/Ca/Min/Fe/FA 1 TAB TABLET PO SCH (08:16)
[2017-07-30] MEDS: Lactulose Oral Soln 20 GM/30 ML UDC PO SCH ×2 (08:16→21:42)
[2017-07-30] MEDS: Lactobacillus 1 EACH CAP.SPRINK PO SCH (08:16)
[2017-07-30] MEDS: Furosemide 40 MG TABLET PO SCH (08:16)
[2017-07-30] MEDS: MULTI PO SCH (08:17)
[2017-07-30] MEDS: OCUVITE EYE PO SCH (08:17)
[2017-07-30] MEDS ORDERED: Magnesium Sulfate 1 GM in D5% in Water 100 ML IVPB ONE (08:34)
--- NOTE | 2017-07-30 15:02 | Internal Med Progress Note ---
Date of Encounter: 07/30/17 Time of Encounter: 13:55 - Assessment and plan (1) Hepatic encephalopathy Current Visit: Yes Status: Acute Assessment and plan: Secondary to underlying Cirrhosis of the liver Titrate lactulose to 3-4 BM a day mental status improved from previous day will continue to closely monitor (2) Pneumonia Current Visit: Yes Status: Acute Assessment and plan: LLL PNA continue IV Levaquin blood cultures prelim reported no growth Qualifiers: Pneumonia type: due to unspecified organism Laterality: left Lung location: lower lobe of lung Qualified Code(s): J18.1 - Lobar pneumonia, unspecified organism (3) Influenza A Current Visit: Yes Status: Acute Assessment and plan: continue Tamiflu for five days (day 3/5) (4) Bradycardia Current Visit: Yes Status: Acute Assessment and plan: Noted to be bradycardia due to which Nodalol is on hold (5) Dementia Current Visit: Yes Status: Chronic Assessment and plan: continue home meds Qualifiers: Dementia type: Alzheimer's disease Alzheimer's disease onset: late-onset Dementia behavioral disturbance: without behavioral disturbance Qualified Code (s): G30.1 - Alzheimer's disease with late onset; F02.80 - Dementia in other diseases classified elsewhere without behavioral disturbance; F02.80 - Dementia in other diseases classified elsewhere without behavioral disturbance; F02.80 - Dementia in other diseases classified elsewhere without behavioral disturbance (6) Frequent falls Current Visit: Yes Status: Chronic Assessment and plan: fall precautions PT/OT evaluation (7) Cirrhosis Current Visit: Yes Status: Chronic Qualifiers: Hepatic cirrhosis type: unspecified hepatic cirrhosis Ascites presence: with ascites Qualified Code(s): K74.60 - Unspecified cirrhosis of liver (8) Pancytopenia Current Visit: Yes Status: Chronic (9) Hypokalemia Current Visit: Yes Status: Resolved (10) DVT prophylaxis Current Visit: Yes Status: Acute Assessment and plan: SCD - Subjective Interval history: Patient seen and examined with family present at bedside. As per family, pt's mental status waxes and wanes, and his mentation is improved from previous day. He is currently AAO x 2. Unclear of the number of bowel movements patient has been having. As per nursing reports, pt only had 1 BM yesterday. Will titrate up the lactulose therapy Awaiting PT/OT evaluation - Constitutional Vitals: Temp Pulse Resp BP Pulse Ox 97.5 F L 75 14 104/61 92 07/30/17 10:58 07/30/17 10:58 07/30/17 10:58 07/30/17 10:58 07/30/17 10:58 General appearance: Present: cooperative, A&O X 2, pleasant, no acute distress - Head Head exam: Present: atraumatic, normocephalic - Eye Eye exam: Present: conjuntiva pink, sclera anicteric - Respiratory Respiratory exam: Present: CTAB. Absent: respiratory distress, wheezes - Cardiovascular Cardiovascular exam: Present: RRR, +S1, +S2. Absent: diastolic murmur, gallop, rubs, systolic murmur - GI/Abdominal GI/Abdominal exam: Present: normal bowel sounds, soft, no peritoneal signs. Absent: distended, tenderness - Extremities Exam Extremities exam: Present: warm, radial pulses palpable and symmetrical. Absent : calf tenderness - Neurological Exam Neurological exam: Present: alert Internal Medicine: Result - Labs CBC & Chem 7: 07/30/17 05:59 07/30/17 05:59 Labs: Short CBC 07/30/17 Range/Units 05:59 WBC 4.7 D (4.3-11.1) K/mcL Hgb 10.2 L (12.9-16.9) g/dL Hct 30.2 L (37.5-50.1) % Plt Count 69 L (140-400) K/mcL Neutrophils # 2.5 (1.6-8.9) K/mcL BMP 07/30/17 05:59 Sodium 131 L Potassium 4.2 Chloride 104 Carbon Dioxide 21 L BUN 14 Creatinine 0.75 Glucose 83 Calcium 7.8 L - ABG Interpretation ABG results: PT/INR, D-dimer PT 13.3 Seconds (9.4-12.1) H 07/27/17 23:23 Consult Discharge Plan - Plan Referrals: Ki Lewis MD [Primary Care Provider] -
[2017-07-31 07:02] LABS: BUN/Creatinine Ratio 20 (6-26); Blood Urea Nitrogen 15 mg/dL (8-23); Calcium 7.8 mg/dL (8.6-10.3); Carbon Dioxide 22 mEq/L (23-29); Chloride 104 mEq/L (98-107); Glucose 91 mg/dL (70-105); Magnesium 1.7 mg/dL (1.6-2.6); Osmolality,Calculated 270 (280-300); Potassium 4.1 mEq/L (3.5-5.1); Sodium 130 mEq/L (136-145); eGFR For African Americans > 60 (> 60); eGFR For Non-African Americans > 60 (> 60)
[2017-07-31 07:15] LABS: Basophils % 0.1 %; Eosinophils % 0.9 %; Mean Platelet Volume 10.5 fL (9.4-12.4)
[2017-07-31 07:17] LABS: Eosinophils # 0.1 K/mcL (0.0-0.6); Hematocrit 30.3 % (37.5-50.1); Hemoglobin 10.3 g/dL (12.9-16.9); Immature Platelets 4.5 % (1.1-6.1); Lymphocytes # 1.8 K/mcL (0.6-4.6); Lymphocytes % 25.2 %; Mean Corpuscular Hemoglobin 33.6 pg (28.0-33.3); Mean Corpuscular Volume 98.7 fL (83.0-100.0); Monocytes # 1.3 K/mcL (0.0-1.3); Monocytes % 18.7 %; Neutrophils # 3.8 K/mcL (1.6-8.9); Nucleated Red Blood Cells 0.4 /100 WBC (0); Red Blood Count 3.07 M/mcL (4.19-5.50); Red Cell Distribution Width 14.7 % (11.5-14.5); Segmented Neutrophils % 54.1 %
[2017-07-31 08:14] LABS: Platelet Count 79 K/mcL (140-400)
[2017-07-31] MEDS: Multivit/Ca/Min/Fe/FA 1 TAB TABLET PO SCH (08:39)
[2017-07-31] MEDS: Cyanocobalamin (B-12) 1,000 MCG TABLET PO SCH (08:39)
[2017-07-31] MEDS: Lactobacillus 1 EACH CAP.SPRINK PO SCH (08:39)
[2017-07-31] MEDS: Gabapentin 300 MG CAPSULE PO SCH ×2 (08:39→20:25)
[2017-07-31] MEDS: Furosemide 40 MG TABLET PO SCH (08:39)
[2017-07-31] MEDS: Levofloxacin 750 MG/150 ML 750 MG/150 ML BAG IVPB SCH (08:40)
[2017-07-31] MEDS: MULTI PO SCH (08:40)
[2017-07-31] MEDS: OCUVITE EYE PO SCH (08:40)
[2017-07-31] MEDS: Lactulose Oral Soln 20 GM/30 ML UDC PO SCH ×4 (08:40→20:25)
--- NOTE | 2017-07-31 15:12 | Electrocardiograph Report ---
[place] [id number] Test Date: 2017-07-27 Pat Name: Daniel Meneses Department: 103 Room: 3A46 Gender: M [employer]: MAGALIE : 1935 Requested By: Rasheed Arias Order Number: [id number] Reading MD: Francisco Alanis MD Measurements Intervals [place] Rate: 53 P: -12 [place]: 163 QRS: 70 QRSD: 84 T: 65 QT: 461 QTc: 445 Interpretive Statements SINUS BRADYCARDIA Electronically Signed On 07-31-2017 15:11:25 EST by Francisco Alanis MD
--- NOTE | 2017-07-31 16:15 | Internal Med Progress Note ---
Date of Encounter: 07/31/17 Time of Encounter: 14:50 - Assessment and plan (1) Hepatic encephalopathy Current Visit: Yes Status: Acute Assessment and plan: Secondary to underlying Cirrhosis of the liver Titrate lactulose to 3-4 BM a day mental status improved from previous day will continue to closely monitor GI evaluation requested (2) Pneumonia Current Visit: Yes Status: Acute Assessment and plan: LLL PNA continue IV Levaquin blood cultures prelim reported no growth Qualifiers: Pneumonia type: due to unspecified organism Laterality: left Lung location: lower lobe of lung Qualified Code(s): J18.1 - Lobar pneumonia, unspecified organism (3) Influenza A Current Visit: Yes Status: Acute Assessment and plan: continue Tamiflu for five days (day 4/5) (4) Bradycardia Current Visit: Yes Status: Acute Assessment and plan: Noted to be bradycardia due to which Nodalol is on hold (5) Dementia Current Visit: Yes Status: Chronic Assessment and plan: continue home meds Qualifiers: Dementia type: Alzheimer's disease Alzheimer's disease onset: late-onset Dementia behavioral disturbance: without behavioral disturbance Qualified Code (s): G30.1 - Alzheimer's disease with late onset; F02.80 - Dementia in other diseases classified elsewhere without behavioral disturbance; F02.80 - Dementia in other diseases classified elsewhere without behavioral disturbance; F02.80 - Dementia in other diseases classified elsewhere without behavioral disturbance (6) Frequent falls Current Visit: Yes Status: Chronic Assessment and plan: fall precautions PT/OT evaluation recommended home health services (7) Cirrhosis Current Visit: Yes Status: Chronic Qualifiers: Hepatic cirrhosis type: unspecified hepatic cirrhosis Ascites presence: with ascites Qualified Code(s): K74.60 - Unspecified cirrhosis of liver (8) Pancytopenia Current Visit: Yes Status: Chronic (9) Hypokalemia Current Visit: Yes Status: Resolved (10) DVT prophylaxis Current Visit: Yes Status: Acute Assessment and plan: SCD - Subjective Interval history: Patient seen and examined with family present at bedside. I had a detailed discussion with the family in regards to patient's baseline mental status. As per family, pt's currently mental status has been the same since May 2017. At baseline he has remained AAO x 2 with intermittent moments of clarity. Family reports that the patient is having 2-3 BM daily however none of which are being documented or reported. Family states patient was supposed to see Dr. Jain for his initial appointment for his cirrhosis but has not been able to do so. Pt appears to be in do distressed. He is pleasantly confused and oriented to himself and family around. He is conversing appropriately. He was reported of having an episode of vomiting earlier today but currently denies any nausea. PT evaluation recommended home health services, however family states it would be more appropriate for him to be at a NH given his recurrent falls at home. - Constitutional Vitals: Temp Pulse Resp BP Pulse Ox 98.5 F 79 15 122/70 95 07/31/17 10:50 07/31/17 10:50 07/31/17 10:50 07/31/17 10:50 07/31/17 10:50 General appearance: Present: cooperative, A&O X 2, pleasant, no acute distress - Head Head exam: Present: atraumatic, normocephalic - Eye Eye exam: Present: conjuntiva pink, sclera anicteric - Respiratory Respiratory exam: Present: CTAB. Absent: accessory muscle use, rales, rhonchi, wheezes - Cardiovascular Cardiovascular exam: Present: RRR, +S1, +S2. Absent: diastolic murmur, gallop, rubs, systolic murmur - GI/Abdominal GI/Abdominal exam: Present: normal bowel sounds, soft, no peritoneal signs. Absent: distended, tenderness - Extremities Exam Extremities exam: Present: warm, radial pulses palpable and symmetrical. Absent : calf tenderness - Neurological Exam Neurological exam: Present: alert Internal Medicine: Result - Labs CBC & Chem 7: 07/31/17 06:33 07/31/17 06:33 Labs: Short CBC 07/31/17 Range/Units 06:33 WBC 7.0 (4.3-11.1) K/mcL Hgb 10.3 L (12.9-16.9) g/dL Hct 30.3 L (37.5-50.1) % Plt Count 79 L (140-400) K/mcL Neutrophils # 3.8 (1.6-8.9) K/mcL BMP 07/31/17 06:33 Sodium 130 L Potassium 4.1 Chloride 104 Carbon Dioxide 22 L BUN 15 Creatinine 0.75 Glucose 91 Calcium 7.8 L - ABG Interpretation ABG results: PT/INR, D-dimer PT 13.3 Seconds (9.4-12.1) H 07/27/17 23:23 Consult Discharge Plan - Plan Referrals: Ki Lewis MD [Primary Care Provider] -
[2017-08-01 06:32] LABS: Basophils % 0.3 %
[2017-08-01 06:35] LABS: Eosinophils # 0.1 K/mcL (0.0-0.6); Eosinophils % 0.9 %; Hematocrit 33.1 % (37.5-50.1); Immature Granulocytes % 0.5 % (0-4); Immature Platelets 4.1 % (1.1-6.1); Lymphocytes # 1.7 K/mcL (0.6-4.6); Lymphocytes % 21.9 %; Mean Corpuscular HGB Conc 33.2 g/dL (31.6-35.5); Mean Corpuscular Hemoglobin 33.2 pg (28.0-33.3); Mean Platelet Volume 10.2 fL (9.4-12.4); Monocytes # 1.5 K/mcL (0.0-1.3); Monocytes % 19.1 %; Neutrophils # 4.4 K/mcL (1.6-8.9); Nucleated Red Blood Cells 0.3 /100 WBC (0); Red Blood Count 3.31 M/mcL (4.19-5.50); Red Cell Distribution Width 15.1 % (11.5-14.5); Segmented Neutrophils % 57.3 %
[2017-08-01 06:41] LABS: Platelet Count 88 K/mcL (140-400)
[2017-08-01 07:12] LABS: BUN/Creatinine Ratio 21 (6-26); Blood Urea Nitrogen 18 mg/dL (8-23); Calcium 8.2 mg/dL (8.6-10.3); Carbon Dioxide 25 mEq/L (23-29); Chloride 108 mEq/L (98-107); Glucose 99 mg/dL (70-105); Magnesium 1.9 mg/dL (1.6-2.6); Osmolality,Calculated 284 (280-300); Potassium 3.8 mEq/L (3.5-5.1); Sodium 136 mEq/L (136-145); eGFR For African Americans > 60 (> 60); eGFR For Non-African Americans > 60 (> 60)
[2017-08-01] MEDS: Levofloxacin 750 MG/150 ML 750 MG/150 ML BAG IVPB SCH (08:53)
[2017-08-01] MEDS: Lactulose Oral Soln 20 GM/30 ML UDC PO SCH ×4 (08:53→20:28)
[2017-08-01] MEDS: Cyanocobalamin (B-12) 1,000 MCG TABLET PO SCH (08:54)
[2017-08-01] MEDS: Furosemide 40 MG TABLET PO SCH (08:54)
[2017-08-01] MEDS: Multivit/Ca/Min/Fe/FA 1 TAB TABLET PO SCH (08:54)
[2017-08-01] MEDS: Lactobacillus 1 EACH CAP.SPRINK PO SCH (08:54)
[2017-08-01] MEDS: Gabapentin 300 MG CAPSULE PO SCH ×2 (08:54→20:28)
--- NOTE | 2017-08-01 11:27 | Gastroenterology Consult Note ---
<Reginaldo Sandoval Bib - Last Filed: 08/01/17 11:24> Date of Encounter: 08/01/17 Time of Encounter: 10:45 - Assessment and plan (1) Cirrhosis Current Visit: Yes Status: Chronic Assessment and plan: Pt with cirrhosis likely secondary to PAIGE. MELD-Na 17, Jamaal-Wilburn Class B. Continue to titrate Lactulose for 2-4 BM daily. Start Rifaximin 400 mg TID while inpatient and 550 mg BID as outpatient. Plan for EGD tomorrow to evaluate varices. Keep pt NPO at midnight. Qualifiers: Hepatic cirrhosis type: unspecified hepatic cirrhosis Ascites presence: with ascites Qualified Code(s): K74.60 - Unspecified cirrhosis of liver (2) Hepatic encephalopathy Current Visit: Yes Status: Acute Assessment and plan: Secondary to cirrhosis. Continue Lactulose and start Rifaximin. (3) Bradycardia Current Visit: Yes Status: Acute Assessment and plan: Nadolol held. (4) Esophageal varices in cirrhosis Current Visit: Yes Status: Acute Assessment and plan: Grade II varices noted on EGD Jul 2014. Repeat EGD tomorrow. Keep NPO at midnight. - Time Spent With Patient Total time spent is greater than 50% in coordination of care (as documented) at patient's floor/unit and/or counseling patient: GI History of Present Illness - Data of Consult Patient: known to practice within the last 3 years Consult date: 08/01/17 Requesting Physician: Slime Garcia MD - Consult Narrative Reason for consult: Cirrhosis, hepatic encephalopathy History of present illness: Mr. Meneses is a 81 year old male with PMHx of cirrhosis, dementia, esophageal varices, hiatal hernia, gastric ulcers who presented to the ED with 4 day history of generalized weakness and altered mental status. The patient has apparent long-term hepatic cirrhosis of unknown etiology which has not acutely worsened over the past 2-3 months. Specifically, in May he started to become extremely confused at different times, and has been more weak. In the past week he has become increasingly confused as noted by his family. He has fallen several times in recent weeks, complaining of lightheadedness often. He has a history of cirrhoisis and has been taking Lactulose and Nadolol. He saw Dr. Jain 07/24/2017 and EGD was ordered at that time. He was noted to be bradycardic and nadolol was held. Mental status has improved since admission. Procedures: EGD 08/06/2014 Dr. Tineo: Grade II esophageal varices, acute gastritis. Colonoscopy 04/23/2014 Dr. Tineo: 5 tubular adenoma, severe diverticulosis , internal hemorrhoids. EGD 04/23/2014 Dr. Tineo: Hiatus hernia, LA grade D esophagitis, Grade II esophageal varices, acute gastritis/duodenitis, multiple duodenal ulcers. NSAIDs: None Anticoagulation: None Past Med Surg Social Fam HX - Past Medical History Medical history: cirrhosis, dementia, liver disease Psychiatric history: no psych history - Past Surgical History Surgical History: other (variceal banding/EGD) - Social History Smoking Status: Never smoker Smokeless Tobacco Status: No Alcohol use: none Drug use: none - Gastrointestinal Gastrointestinal: Present: as per HPI - Constitutional Constitutional: as per HPI - EENT Eyes: as per HPI Ears: Present: as per HPI Nose, mouth and throat: Present: as per HPI - Cardiovascular Cardiovascular ROS: Present: as per HPI - Respiratory Respiratory IM: Present: as per HPI - Genitourinary Genitourinary: Absent: change in color, Urinary frequency - Neurological ROS Neurological GI: Present: as per HPI - Hematologic/Lymphatic Hematologic/Lymphatic pediatric: Present: as per HPI - Musculoskeletal Musculoskeletal ROS GI: Present: as per HPI - Integumentary Integumentary GI: Present: as per HPI - Psychiatric ROS Psychiatric GI: Present: as per HPI - Endocrine Endocrine IM: Present: as per HPI - Constitutional Vitals: Temp Pulse Resp BP Pulse Ox 97.3 F L 79 14 145/75 96 08/01/17 10:38 08/01/17 10:38 08/01/17 10:38 08/01/17 10:38 08/01/17 10:38 General appearance: Present: cooperative, A&O X 2, no acute distress, answers questions appropriately - Head Head exam: Present: atraumatic, normocephalic - Eye Eye exam: Present: normal appearance, sclera anicteric - ENT ENT exam: Present: mucous membranes dry - Neck Neck exam general surgery: Present: normal inspection, trachea midline - Respiratory Respiratory exam: Present: CTAB - Cardiovascular Cardiovascular exam: Present: RRR, +S1, +S2 - GI/Abdominal GI/Abdominal exam: Present: soft, no peritoneal signs. Absent: distended, firm , guarding, tenderness - Rectal Rectal exam: Present: deferred - Extremities Exam Extremities exam: Present: warm - Neurological Exam Neurological exam: Present: no focal deficits - Psychiatric Psychiatric exam: Present: normal affect, normal mood - Skin Skin exam: Present: dry, intact, normal color, warm Results - Labs CBC & Chem 7: 08/01/17 06:06 08/01/17 06:06 Labs: Last Result Calcium 8.2 mg/dL (8.6-10.3) L 08/01/17 06:06 Troponin I < 0.03 ng/mL (< 0.04) 07/27/17 16:30 Vitamin B12 1848 pg/mL (250-1100) H 07/28/17 04:27 Entire Visit Hgb 11.0 g/dL (12.9-16.9) L 08/01/17 06:06 Hct 33.1 % (37.5-50.1) L 08/01/17 06:06 PT 13.3 Seconds (9.4-12.1) H 07/27/17 23:23 Total Bilirubin 1.1 mg/dL (0.3-1.0) H 07/27/17 16:30 AST 52 Units/L (13-39) H 07/27/17 16:30 ALT 24 Units/L (7-52) 07/27/17 16:30 Ammonia 45 mcmol/L (16-53) 07/31/17 06:33 Lipase 51 Units/L (11-82) 07/27/17 16:30 - ABG ABG results: PT/INR, D-dimer PT 13.3 Seconds (9.4-12.1) H 07/27/17 23:23 Consult Discharge Plan - Plan Referrals: Ki Lewis MD [Primary Care Provider] - <Nelson Jain - Last Filed: 08/01/17 19:21> Date of Encounter: 08/01/17 Time of Encounter: 14:00 - Time Spent With Patient Total time spent is greater than 50% in coordination of care (as documented) at patient's floor/unit and/or counseling patient: GI History of Present Illness - Data of Consult Requesting Physician: Slime Garcia MD - Consult Narrative History of present illness: Mr. Meneses is a 81 year old male - Constitutional Vitals: Temp Pulse Resp BP Pulse Ox 98.1 F 79 16 108/61 96 08/01/17 15:12 08/01/17 15:12 08/01/17 15:12 08/01/17 15:12 08/01/17 15:12 Results - Labs CBC & Chem 7: 08/01/17 06:06 08/01/17 06:06 Labs: Last Result Calcium 8.2 mg/dL (8.6-10.3) L 08/01/17 06:06 Troponin I < 0.03 ng/mL (< 0.04) 07/27/17 16:30 Vitamin B12 1848 pg/mL (250-1100) H 07/28/17 04:27 Entire Visit Hgb 11.0 g/dL (12.9-16.9) L 08/01/17 06:06 Hct 33.1 % (37.5-50.1) L 08/01/17 06:06 PT 13.3 Seconds (9.4-12.1) H 07/27/17 23:23 Total Bilirubin 1.1 mg/dL (0.3-1.0) H 07/27/17 16:30 AST 52 Units/L (13-39) H 07/27/17 16:30 ALT 24 Units/L (7-52) 07/27/17 16:30 Ammonia 45 mcmol/L (16-53) 07/31/17 06:33 Lipase 51 Units/L (11-82) 07/27/17 16:30 - ABG ABG results: PT/INR, D-dimer PT 13.3 Seconds (9.4-12.1) H 07/27/17 23:23 - Attending Attestation I examined this patient and my medical decision-making was reviewed with the [employer] INSPECTOR. I agree with the documented findings, disposition and treatment plan as described except to the extent set forth below. Pt with PAIGE cirrhosis, now with encephalopathy and poss pneumonia. Rec: Will add rifaximin. EGD to r/o varices. Due to dementa/advance age not a canadiate for LT
--- NOTE | 2017-08-01 14:48 | Internal Med Progress Note ---
Date of Encounter: 08/01/17 Time of Encounter: 14:30 - Assessment and plan (1) Hepatic encephalopathy Current Visit: Yes Status: Acute Assessment and plan: Secondary to underlying Cirrhosis of the liver Titrate lactulose to 3-4 BM a day mental status improved from previous day will continue to closely monitor GI evaluation appreciated pt scheduled for EGD in am for evaluation of esophageal varices Rifaximin added (2) Pneumonia Current Visit: Yes Status: Acute Assessment and plan: LLL PNA continue IV Levaquin (Day 10/29) blood cultures prelim reported no growth Qualifiers: Pneumonia type: due to unspecified organism Laterality: left Lung location: lower lobe of lung Qualified Code(s): J18.1 - Lobar pneumonia, unspecified organism (3) Influenza A Current Visit: Yes Status: Acute Assessment and plan: continue Tamiflu for five days (day 10/27) (4) Bradycardia Current Visit: Yes Status: Acute Assessment and plan: Noted to be bradycardia due to which Nodalol is on hold (5) Dementia Current Visit: Yes Status: Chronic Assessment and plan: continue home meds Qualifiers: Dementia type: Alzheimer's disease Alzheimer's disease onset: late-onset Dementia behavioral disturbance: without behavioral disturbance Qualified Code (s): G30.1 - Alzheimer's disease with late onset; F02.80 - Dementia in other diseases classified elsewhere without behavioral disturbance; F02.80 - Dementia in other diseases classified elsewhere without behavioral disturbance; F02.80 - Dementia in other diseases classified elsewhere without behavioral disturbance (6) Frequent falls Current Visit: Yes Status: Chronic Assessment and plan: fall precautions PT/OT evaluation noted pt accepted to ECF (7) Cirrhosis Current Visit: Yes Status: Chronic Qualifiers: Hepatic cirrhosis type: unspecified hepatic cirrhosis Ascites presence: with ascites Qualified Code(s): K74.60 - Unspecified cirrhosis of liver (8) Pancytopenia Current Visit: Yes Status: Chronic (9) Hypokalemia Current Visit: Yes Status: Resolved (10) DVT prophylaxis Current Visit: Yes Status: Acute Assessment and plan: SCD - Subjective Interval history: Patient seen and examined with with family present at bedside. Mental status improved, as per family this is significantly better. Pt has been accepted to [facility] after discharge GI evaluation noted, pt scheduled for EGD in am for evaluation of esophageal varices - Constitutional Vitals: Temp Pulse Resp BP Pulse Ox 97.3 F L 79 14 145/75 96 08/01/17 10:38 08/01/17 10:38 08/01/17 10:38 08/01/17 10:38 08/01/17 10:38 General appearance: Present: cooperative, A&O X 2, pleasant, no acute distress - Head Head exam: Present: atraumatic, normocephalic - Eye Eye exam: Present: conjuntiva pink, sclera anicteric - Respiratory Respiratory exam: Present: CTAB. Absent: accessory muscle use, rales, rhonchi, wheezes - Cardiovascular Cardiovascular exam: Present: RRR, +S1, +S2. Absent: diastolic murmur, gallop, rubs, systolic murmur - GI/Abdominal GI/Abdominal exam: Present: normal bowel sounds, soft, no peritoneal signs. Absent: distended, tenderness - Extremities Exam Extremities exam: Present: warm, radial pulses palpable and symmetrical. Absent : calf tenderness - Neurological Exam Neurological exam: Present: alert, oriented X3 - Psychiatric Psychiatric exam: Present: normal affect, normal mood Internal Medicine: Result - Labs CBC & Chem 7: 08/01/17 06:06 08/01/17 06:06 Labs: Short CBC 08/01/17 Range/Units 06:06 WBC 7.7 (4.3-11.1) K/mcL Hgb 11.0 L (12.9-16.9) g/dL Hct 33.1 L (37.5-50.1) % Plt Count 88 L (140-400) K/mcL Neutrophils # 4.4 (1.6-8.9) K/mcL BMP 08/01/17 06:06 Sodium 136 Potassium 3.8 Chloride 108 H Carbon Dioxide 25 BUN 18 Creatinine 0.84 Glucose 99 Calcium 8.2 L - ABG Interpretation ABG results: PT/INR, D-dimer PT 13.3 Seconds (9.4-12.1) H 07/27/17 23:23 Consult Discharge Plan - Plan Referrals: Ki Lewis MD [Primary Care Provider] -
[2017-08-02 06:08] LABS: Hematocrit 36.1 % (37.5-50.1)
[2017-08-02 06:10] LABS: Basophils % 0.1 %; Eosinophils # 0.1 K/mcL (0.0-0.6); Hemoglobin 12.2 g/dL (12.9-16.9); Immature Granulocytes % 0.3 % (0-4); Immature Platelets 3.5 % (1.1-6.1); Lymphocytes # 1.8 K/mcL (0.6-4.6); Lymphocytes % 19.2 %; Mean Corpuscular HGB Conc 33.8 g/dL (31.6-35.5); Mean Corpuscular Hemoglobin 33.9 pg (28.0-33.3); Mean Corpuscular Volume 100.3 fL (83.0-100.0); Mean Platelet Volume 10.6 fL (9.4-12.4); Monocytes # 1.7 K/mcL (0.0-1.3); Monocytes % 18.1 %; Red Cell Distribution Width 15.2 % (11.5-14.5); Segmented Neutrophils % 61.3 %
[2017-08-02 06:42] LABS: BUN/Creatinine Ratio 24 (6-26); Blood Urea Nitrogen 19 mg/dL (8-23); Calcium 8.6 mg/dL (8.6-10.3); Carbon Dioxide 23 mEq/L (23-29); Chloride 111 mEq/L (98-107); Glucose 107 mg/dL (70-105); Osmolality,Calculated 289 (280-300); Phosphorous 2.6 mg/dL (2.7-4.5); Potassium 4.1 mEq/L (3.5-5.1); Sodium 138 mEq/L (136-145); eGFR For African Americans > 60 (> 60); eGFR For Non-African Americans > 60 (> 60)
[2017-08-02 06:50] LABS: Neutrophils # 5.6 K/mcL (1.6-8.9); Platelet Count 99 K/mcL (140-400)
[2017-08-02 06:51] LABS: Macrocytosis Present (Not Present); Platelet Estimate Decreased (Normal); Reactive Lymphocytes Present (Not Present)
[2017-08-02] MEDS: Multivit/Ca/Min/Fe/FA 1 TAB TABLET PO SCH (09:20)
[2017-08-02] MEDS: Furosemide 40 MG TABLET PO SCH (09:20)
[2017-08-02] MEDS: Cyanocobalamin (B-12) 1,000 MCG TABLET PO SCH (09:20)
[2017-08-02] MEDS: Lactulose Oral Soln 20 GM/30 ML UDC PO SCH ×4 (09:20→20:50)
[2017-08-02] MEDS: Gabapentin 300 MG CAPSULE PO SCH ×2 (09:21→20:50)
[2017-08-02] MEDS: Lactobacillus 1 EACH CAP.SPRINK PO SCH (09:21)
[2017-08-02] MEDS: Levofloxacin 750 MG/150 ML 750 MG/150 ML BAG IVPB SCH (09:21)
[2017-08-02] MEDS ORDERED: 0.9 % Sodium Chloride 500 ML IVC SCH (13:15)
--- NOTE | 2017-08-02 13:15 | Anesthesia Evaluation PreOp ---
Date of Encounter: 08/02/17 Time of Encounter: 13:28 - Past History Planned Operation: EGD (cirrhosis, hx varices) Cardiac History: Denies any Significant Hx Pulmonary History: Other (being treated for pneumonia) PLAN REP History: Other (acute hepatic encephalopathy) Other Medical History: Hepatic (cirrhosis, hx esophageal varices s/p banding 2014) Anesthesia History: No Prior Anesthetic Complications, Past Anesthesia (EGD with banding 2014) Alcohol Use: none Drug use: none Medications and Allergies Lactobacillus Acidophilus/Pect [Acidophilus-Pectin Capsule] 1 each PO DAILY 08/09 [History] Cyanocobalamin (Vitamin B-12) [Vitamin B-12] 1,000 mcg PO DAILY 04/27/15 [ History] Lactulose 20 gm PO BID 04/27/15 [History] Multivitamin [Multi-Day Vitamins] 1 each PO DAILY 04/27/15 [History] Mv-Mn/FA/Vit K1/Lycop/Lut/Zeax [Ocuvite Eye + Multi Tablet] 2 tab PO DAILY 04/27 [History] Pantoprazole Sodium 40 mg PO DAILY 04/27/15 [History] Furosemide [Lasix] 40 mg PO DAILY 07/29/15 [History] Azithromycin [Azithromycin 6-Tab Pack] 250 mg PO PER PKG DI 07/27/17 [History] Benzonatate [Tessalon] 100 mg PO TID PRN 07/27/17 [History] Docusate [Colace] 100 mg PO BID PRN 07/27/17 [History] Donepezil HCl [Aricept] 10 mg PO HS 07/27/17 [History] Gabapentin [Neurontin] 300 mg PO BID 07/27/17 [History] Ipratropium/Albuterol Neb [Duoneb] 3 ml IH Q6H PRN 07/27/17 [History] Nadolol [Nadolol] 20 g PO DAILY 07/27/17 [History] Spironolactone [Aldactone] 100 mg PO DAILY 07/27/17 [History] 3 Allergy/AdvReac Type Severity Reaction Status Date / Time acetaminophen [From Percocet] Allergy Nausea Verified 06/15/17 07:35 ciprofloxacin [From Cipro] AdvReac See Verified 07/27/17 17:25 Comments metronidazole [From Flagyl] AdvReac Dizziness Verified 07/27/17 17:25 Oxycodone [From Percocet] AdvReac Nausea Verified 07/27/17 17:25 - Meds/Allergy Pre-op Review Medications Reviewed: Yes Allergies Reviewed: Yes Beta Blockers on Current Med List: No (nadolol at home - not being administered in the hospita) Anesthesia Results - Labs 08/02/17 05:49 08/02/17 05:49 - Imaging EKG: report reviewed, image reviewed (SB) Additional studies: -2017 TTE: Impressions: LVEF 60%. Mild left ventricular diastolic dysfunction. Normal right ventricular structure and function. Mild-moderate, eccentric appearing mitral regurgitation that is not optimally visualized. The anterior mitral valve leaflet is mildly thickened and calcified. The posterior leaflet demonstrates moderate prolapsing. Moderate aortic stenosis. No pulmonary hypertension by TR gradient. IVC is not well visualized. Anesthesia Exam Last Vital Signs Temp 97.8 F 08/02/17 11:20 Pulse 77 08/02/17 12:57 Resp 16 08/02/17 12:57 BP 125/69 08/02/17 12:57 Pulse Ox 99 08/02/17 12:57 - HEENT Pupil (Motor): Pupils equal, EOMI Mallampati: II Teeth: Poor dentition Oral Opening: Greater than 3 - PLAN REP LOC: Oriented PLAN REP Motor: Normal RUE, Normal LUE, Normal RLE, Normal LLE, Normal Face - Cardiac Rhythm: Regular - Pulmonary Breath Sounds: bilateral Rhonchi (mild) Respiratory Effort: Symmetrical Anesthesia Assess/Plan ASA Score: 3 Modified Ramon Scale for Level of Consciousness: Cooperative, oriented, and tranquil Anesthetic Plan: MAC Monitoring Plan: Standard Monitors Recovery Plan: PACU
[2017-08-02] MEDS ORDERED: *HR* Propofol 200 MG/20 ML VIAL IVP ONE (14:30)
[2017-08-02] MEDS ORDERED: Lidocaine -MPF 2% 2 ML VIAL ONE (14:31)
[2017-08-02] MEDS ORDERED: Simethicone 40 MG/0.6 ML MLS IR ONE (14:33)
[2017-08-02] MEDS ORDERED: Tetracaine/Benzocaine/Butamben 200MG/SPRAY (100SPY/BOT) MM ONE (14:33)
--- NOTE | 2017-08-02 16:47 | Internal Med Progress Note ---
Date of Encounter: 08/02/17 Time of Encounter: 13:02 - Assessment and plan (1) Hepatic encephalopathy Current Visit: Yes Status: Acute Assessment and plan: Secondary to underlying Cirrhosis of the liver Titrate lactulose to 3-4 BM a day mental status improved from previous day will continue to closely monitor GI evaluation appreciated pt scheduled for EGD later today continue Rifaximin (2) Pneumonia Current Visit: Yes Status: Acute Assessment and plan: LLL PNA continue IV Levaquin (Day 6) blood cultures prelim reported no growth Qualifiers: Pneumonia type: due to unspecified organism Laterality: left Lung location: lower lobe of lung Qualified Code(s): J18.1 - Lobar pneumonia, unspecified organism (3) Influenza A Current Visit: Yes Status: Acute Assessment and plan: Finished Tamiflu for five days (day 5 on 08/01/17) (4) Bradycardia Current Visit: Yes Status: Resolved Assessment and plan: Noted to be bradycardia due to which Nodalol is on hold (5) Dementia Current Visit: Yes Status: Chronic Assessment and plan: continue home meds Qualifiers: Dementia type: Alzheimer's disease Alzheimer's disease onset: late-onset Dementia behavioral disturbance: without behavioral disturbance Qualified Code (s): G30.1 - Alzheimer's disease with late onset; F02.80 - Dementia in other diseases classified elsewhere without behavioral disturbance; F02.80 - Dementia in other diseases classified elsewhere without behavioral disturbance; F02.80 - Dementia in other diseases classified elsewhere without behavioral disturbance (6) Frequent falls Current Visit: Yes Status: Chronic Assessment and plan: fall precautions PT/OT evaluation noted pt accepted to ECF (7) Cirrhosis Current Visit: Yes Status: Chronic Qualifiers: Hepatic cirrhosis type: unspecified hepatic cirrhosis Ascites presence: with ascites Qualified Code(s): K74.60 - Unspecified cirrhosis of liver (8) Pancytopenia Current Visit: Yes Status: Chronic (9) Hypokalemia Current Visit: Yes Status: Resolved (10) DVT prophylaxis Current Visit: Yes Status: Acute Assessment and plan: SCD - Subjective Interval history: Patient seen and examined with with family present at bedside. Mental status improved, as per family this is significantly better. Pt has been accepted to [facility] after discharge GI evaluation noted, pt scheduled for EGD later today - Constitutional Vitals: Temp Pulse Resp BP Pulse Ox 98.4 F 80 16 139/79 96 08/02/17 15:38 08/02/17 15:38 08/02/17 15:38 08/02/17 15:38 08/02/17 15:38 General appearance: Present: cooperative, A&O X 2, pleasant, no acute distress - Head Head exam: Present: atraumatic, normocephalic - Respiratory Respiratory exam: Absent: rales, respiratory distress, wheezes - Cardiovascular Cardiovascular exam: Present: RRR, +S1, +S2. Absent: diastolic murmur, gallop, rubs, systolic murmur - GI/Abdominal GI/Abdominal exam: Present: normal bowel sounds, soft, no peritoneal signs. Absent: distended, tenderness - Extremities Exam Extremities exam: Present: warm, radial pulses palpable and symmetrical. Absent : calf tenderness, pedal edema Internal Medicine: Result - Labs CBC & Chem 7: 08/02/17 05:49 08/02/17 05:49 Labs: Short CBC 08/02/17 Range/Units 05:49 WBC 9.2 (4.3-11.1) K/mcL Hgb 12.2 L (12.9-16.9) g/dL Hct 36.1 L (37.5-50.1) % Plt Count 99 L (140-400) K/mcL Neutrophils # 5.6 (1.6-8.9) K/mcL BMP 08/02/17 05:49 Sodium 138 Potassium 4.1 Chloride 111 H Carbon Dioxide 23 BUN 19 Creatinine 0.80 Glucose 107 H Calcium 8.6 - ABG Interpretation ABG results: PT/INR, D-dimer PT 13.3 Seconds (9.4-12.1) H 07/27/17 23:23 Consult Discharge Plan - Plan Referrals: Ki Lewis MD [Primary Care Provider] -
[2017-08-02] MEDS: traMADol 50 MG TABLET PO PRN (16:50)
[2017-08-03 05:54] LABS: Basophils % 0.3 %; Eosinophils # 0.1 K/mcL (0.0-0.6); Eosinophils % 0.9 %; Hematocrit 34.3 % (37.5-50.1); Hemoglobin 11.5 g/dL (12.9-16.9); Immature Granulocytes % 0.7 % (0-4); Lymphocytes # 1.5 K/mcL (0.6-4.6); Lymphocytes % 19.8 %; Mean Corpuscular HGB Conc 33.5 g/dL (31.6-35.5); Mean Corpuscular Hemoglobin 33.2 pg (28.0-33.3); Mean Corpuscular Volume 99.1 fL (83.0-100.0); Monocytes # 1.3 K/mcL (0.0-1.3); Neutrophils # 4.7 K/mcL (1.6-8.9); Platelet Count 105 K/mcL (140-400); Red Blood Count 3.46 M/mcL (4.19-5.50); Red Cell Distribution Width 15.5 % (11.5-14.5); Segmented Neutrophils % 61.3 %
[2017-08-03 06:11] LABS: BUN/Creatinine Ratio 27 (6-26); Blood Urea Nitrogen 23 mg/dL (8-23); Calcium 8.4 mg/dL (8.6-10.3); Carbon Dioxide 21 mEq/L (23-29); Chloride 113 mEq/L (98-107); Glucose 101 mg/dL (70-105); Magnesium 1.8 mg/dL (1.6-2.6); Osmolality,Calculated 296 (280-300); Phosphorous 3.6 mg/dL (2.7-4.5); Potassium 4.1 mEq/L (3.5-5.1); Sodium 141 mEq/L (136-145); eGFR For African Americans > 60 (> 60); eGFR For Non-African Americans > 60 (> 60)
--- NOTE | 2017-08-03 06:39 | Electrocardiograph Report ---
[address] [address] Test Date: 2017-08-02 Pat Name: Daniel Meneses Department: 115 Room: 3A46 Gender: M [employer] Server: [facility], [facility]–1983 : 1935 Requested By: Slime Garcia Order Number: [id number] Reading MD: Francisco Alanis MD Measurements Intervals [place] Rate: 76 P: 50 OK: 173 QRS: 55 QRSD: 79 T: 43 QT: 426 QTc: 457 Interpretive Statements SINUS RHYTHM Electronically Signed On 08-03-2017 6:37:13 EST by Francisco Alanis MD
[2017-08-03] MEDS: Lactulose Oral Soln 20 GM/30 ML UDC PO SCH ×2 (07:46→11:40)
[2017-08-03] MEDS: Furosemide 40 MG TABLET PO SCH (07:46)
[2017-08-03] MEDS: Levofloxacin 750 MG/150 ML 750 MG/150 ML BAG IVPB SCH (07:47)
[2017-08-03] MEDS: Gabapentin 300 MG CAPSULE PO SCH (07:47)
[2017-08-03] MEDS: Lactobacillus 1 EACH CAP.SPRINK PO SCH (07:47)
[2017-08-03] MEDS: Cyanocobalamin (B-12) 1,000 MCG TABLET PO SCH (07:48)
[2017-08-03] MEDS: Multivit/Ca/Min/Fe/FA 1 TAB TABLET PO SCH (07:48)
--- NOTE | 2017-08-03 09:30 | Discharge Summary ---
Date of Encounter: 08/03/17 Time of Encounter: 09:06 - Discharge Diagnosis (1) Hepatic encephalopathy Priority: Primary Status: Acute (2) Pneumonia Priority: Primary Status: Acute Qualifiers: Pneumonia type: due to unspecified organism Laterality: left Lung location: lower lobe of lung Qualified Code(s): J18.1 - Lobar pneumonia, unspecified organism (3) Influenza A Priority: Secondary Status: Acute (4) Bradycardia Priority: Secondary Status: Resolved (5) Dementia Priority: Secondary Status: Chronic Qualifiers: Dementia type: Alzheimer's disease Alzheimer's disease onset: late-onset Dementia behavioral disturbance: without behavioral disturbance Qualified Code (s): G30.1 - Alzheimer's disease with late onset; F02.80 - Dementia in other diseases classified elsewhere without behavioral disturbance; F02.80 - Dementia in other diseases classified elsewhere without behavioral disturbance; F02.80 - Dementia in other diseases classified elsewhere without behavioral disturbance (6) Frequent falls Priority: Secondary Status: Chronic (7) Cirrhosis Priority: Secondary Status: Chronic Qualifiers: Hepatic cirrhosis type: unspecified hepatic cirrhosis Ascites presence: with ascites Qualified Code(s): K74.60 - Unspecified cirrhosis of liver (8) Pancytopenia Priority: Secondary Status: Chronic (9) Hypokalemia Priority: Secondary Status: Resolved (10) DVT prophylaxis Priority: Secondary Status: Acute (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 - Discharge Medications Prescriptions: Ondansetron [Zofran] 4 mg PO Q8HR PRN #10 tablet PRN Reason: nausea/vomiting Rifaximin [Xifaxan] 550 mg PO BID #60 tablet Tramadol HCl [Ultram] 50 mg PO TID PRN 5 Days #15 tab PRN Reason: moderate to severe pain Home Medications: Lactobacillus Acidophilus/Pect [Acidophilus-Pectin Capsule] 1 each PO DAILY 08/09 [History] Cyanocobalamin (Vitamin B-12) [Vitamin B12] 1,000 mcg PO DAILY 04/27/15 [History ] Multivitamin [Multi-Day Vitamins] 1 each PO DAILY 04/27/15 [History] Mv-Mn/FA/Vit K1/Lycop/Lut/Zeax [Ocuvite Eye + Multi Tablet] 2 tab PO DAILY 04/27 [History] Pantoprazole Sodium 40 mg PO DAILY 04/27/15 [History] Furosemide [Lasix] 40 mg PO DAILY 07/29/15 [History] Benzonatate [Tessalon] 100 mg PO TID PRN 07/27/17 [History] Docusate [Colace] 100 mg PO BID PRN 07/27/17 [History] Donepezil HCl [Aricept] 10 mg PO HS 07/27/17 [History] Ipratropium/Albuterol Neb [Duoneb] 3 ml IH Q6H PRN 07/27/17 [History] Spironolactone [Aldactone] 100 mg PO DAILY 07/27/17 [History] Gabapentin [Neurontin] 300 mg PO BID #10 capsule 08/03/17 [Rx] Lactulose 20 gm PO QID #30 08/03/17 [Rx] Ondansetron [Zofran] 4 mg PO Q8HR PRN #10 tablet 08/03/17 [Rx] Rifaximin [Xifaxan] 550 mg PO BID #60 tablet 08/03/17 [Rx] Tramadol HCl [Ultram] 50 mg PO TID PRN 5 Days #15 tab 08/03/17 [Rx] Allergies/Adverse Reactions: 3 Allergy/AdvReac Type Severity Reaction Status Date / Time acetaminophen [From Percocet] Allergy Nausea Verified 06/15/17 07:35 ciprofloxacin [From Cipro] AdvReac See Verified 07/27/17 17:25 Comments metronidazole [From Flagyl] AdvReac Dizziness Verified 07/27/17 17:25 Oxycodone [From Percocet] AdvReac Nausea Verified 07/27/17 17:25 Procedures/tests Complete & Pending: Procedures Performed prior 72 hours Category Date Time Status EKG [ECG 12 lead ECG] [ECG] Stat Y 08/02/17 16:36 Completed Date of admission: 07/28/17 01:30 Primary care physician: Ki Lewis MD Consults: 07/31/17 15:56 Consult to Gastroenterology [CONS] Routine Consulting Provider: Gastroenterology Jessica Reason for Consult: cirrhosis of the liver, hepatic encephalopathy Call Completed: Yes Discharging clinician: Slime Garcia Anticipated date of discharge: 08/03/17 - Patient Status Disposition: Transfer SNF Condition: Good Functional capacity at discharge: uses cane/walker Overall status at discharge: patient is back to baseline - Discharge Instructions Follow Up With: Ki Lewis MD [Primary Care Provider] - Additional Instructions: Please follow up with your primary care physician within five days after your discharge from the hospital Please follow up with Gastroenterology within one to two weeks after your discharge from the hospital. your home dose of Nodalol has been discontinued due to low heart rate. Please ask your primary care physician and qc chemist about continuation of this medication. Your home dose of Lactulose has been increased to 20mgm four times a day. goal is to have 3-4 bowel movements a day. If you are noted to have more than 4 bowel movements a day, decrease the lactulose to three times a day. Rifaximin 550mg twice a day has been added to your home medications. Resume all other medications as prescribed by your primary care physician. You have finished the antibioitics and antiviral medication for the treatment of pneumonia and flu. - Diet and Activity Activity: as per physical therapy Diet: low salt diet Hospital course: Mr. Meneses is a 81 year old male with PMH of cirrhosis of the liver, esophageal varices, Alzheimer's dementia who was admitted for hepatic encephalopathy, PNA, and influenza. He was started on IV abx, antiviral therapy, and his home dose of lactulose was increased. He was evaluated by GI, and underwent EGD. Banding of his varices was done, and no acute bleeding was reported. He was also started on Rifaximin. He was noted to be bradycardic due to which his home dose of nodalol was discontinued. Pt's mental status waxes and wanes and at baseline he is oriented x 2. At this time he is back to his baseline mental status. As per POA's request, pt will be discharged to ECF for rehab. Pt is medically stable for discharge to ECF today. Pt's Jennifer Meneses informed. All questions were answered. - Time Spent with Patient Total time spent providing and/or coordinating discharge services: Less than 30 minutes - Constitutional Vitals: Temp Pulse Resp BP Pulse Ox 98.5 F 67 14 122/69 98 08/03/17 07:17 08/03/17 07:17 08/03/17 07:17 08/03/17 07:17 08/03/17 07:17 General appearance: Present: cooperative, A&O X 2, pleasant, no acute distress - Head Head exam: Present: atraumatic, normocephalic - Eye Eye exam: Present: conjuntiva pink, sclera anicteric - Respiratory Respiratory exam: Present: CTAB. Absent: respiratory distress, wheezes - Cardiovascular Cardiovascular exam: Present: RRR, +S1, +S2. Absent: diastolic murmur, gallop, rubs, systolic murmur - GI/Abdominal GI/Abdominal exam: Present: normal bowel sounds, soft, no peritoneal signs. Absent: distended, tenderness - Extremities Exam Extremities exam: Present: warm, radial pulses palpable and symmetrical. Absent : calf tenderness, pedal edema
--- NOTE | 2017-08-03 09:40 | Physician Discharge Referral ---
[facility] Referral Info [facility] - Diagnosis (1) Hepatic encephalopathy Priority: Primary Status: Acute (2) Pneumonia Priority: Primary Status: Acute (3) Influenza A Priority: Secondary Status: Acute (4) Bradycardia Priority: Secondary Status: Resolved (5) Dementia Priority: Secondary Status: Chronic (6) Frequent falls Priority: Secondary Status: Chronic (7) Cirrhosis Priority: Secondary Status: Chronic (8) Pancytopenia Priority: Secondary Status: Chronic (9) Hypokalemia Priority: Secondary Status: Resolved (10) DVT prophylaxis Priority: Secondary Status: Acute (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 - Transfer Medications Prescriptions: Ondansetron [Zofran] 4 mg PO Q8HR PRN #10 tablet PRN Reason: nausea/vomiting Gabapentin [Neurontin] 300 mg PO BID #10 capsule Rifaximin [Xifaxan] 550 mg PO BID #60 tablet Tramadol HCl [Ultram] 50 mg PO TID PRN 5 Days #15 tab PRN Reason: moderate to severe pain Home Medications: Lactobacillus Acidophilus/Pect [Acidophilus-Pectin Capsule] 1 each PO DAILY 08/09 [History] Cyanocobalamin (Vitamin B-12) [Vitamin B12] 1,000 mcg PO DAILY 04/27/15 [History ] Multivitamin [Multi-Day Vitamins] 1 each PO DAILY 04/27/15 [History] Mv-Mn/FA/Vit K1/Lycop/Lut/Zeax [Ocuvite Eye + Multi Tablet] 2 tab PO DAILY 04/27 [History] Pantoprazole Sodium 40 mg PO DAILY 04/27/15 [History] Furosemide [Lasix] 40 mg PO DAILY 07/29/15 [History] Benzonatate [Tessalon] 100 mg PO TID PRN 07/27/17 [History] Docusate [Colace] 100 mg PO BID PRN 07/27/17 [History] Donepezil HCl [Aricept] 10 mg PO HS 07/27/17 [History] Ipratropium/Albuterol Neb [Duoneb] 3 ml IH Q6H PRN 07/27/17 [History] Spironolactone [Aldactone] 100 mg PO DAILY 07/27/17 [History] Gabapentin [Neurontin] 300 mg PO BID #10 capsule 02/09/18 [Rx] Lactulose 20 gm PO QID #30 08/03/17 [Rx] Ondansetron [Zofran] 4 mg PO Q8HR PRN #10 tablet 08/03/17 [Rx] Rifaximin [Xifaxan] 550 mg PO BID #60 tablet 08/03/17 [Rx] Tramadol HCl [Ultram] 50 mg PO TID PRN 5 Days #15 tab 08/03/17 [Rx] Allergies/Adverse Reactions: 3 Allergy/AdvReac Type Severity Reaction Status Date / Time acetaminophen [From Percocet] Allergy Nausea Verified 06/15/17 07:35 ciprofloxacin [From Cipro] AdvReac See Verified 07/27/17 17:25 Comments metronidazole [From Flagyl] AdvReac Dizziness Verified 07/27/17 17:25 Oxycodone [From Percocet] AdvReac Nausea Verified 07/27/17 17:25 - Respiratory Orders Smoking Cessation: Smoking cessation has been advised. For more information, call the [employer] Quit Line at 1-020-MBQU-NOW. - Rehabiliation Orders Other: Please follow up with your primary care physician within five days after your discharge from the hospital Please follow up with Gastroenterology within one to two weeks after your discharge from the hospital. your home dose of Nodalol has been discontinued due to low heart rate. Please ask your primary care physician and commercial green retrofit architect about continuation of this medication. Your home dose of Lactulose has been increased to 20mgm four times a day. goal is to have 3-4 bowel movements a day. If you are noted to have more than 4 bowel movements a day, decrease the lactulose to three times a day. Rifaximin 550mg twice a day has been added to your home medications. Resume all other medications as prescribed by your primary care physician. You have finished the antibiotics and antiviral medication for the treatment of pneumonia and flu. CERTIFICATION: I certify that the transfer of the above named patient to an Extended Care Facility is necessary for the continuing treatment of the diagnosis listed. The above information is true and accurate reflection of patient's current condition. Confidential - Redisclosure prohibited without a patient's written consent.
[2017-08-03 11:33] VITALS: BP 123/71
[2017-08-04] MEDS ORDERED: levoFLOXacin 750 MG TABLET PO SCH (09:00)
== END 2017-08-03 13:30 | DRG 441 ==
LOC: 3ANU 15:15 → EMEROO 15:15 → 3ANU 20:06 → SUATTDRO 07-28 01:30 → 3ANU 07-31 10:46
PROVIDERS: ADMIT Nurse Practitioner Family; ATTEND Internal Medicine
PROC: ENDOEBX (2017-08-02 13:00)

== ENCOUNTER 2017-09-05 11:01 | Inpatient (IN) ==
--- NOTE | 2017-09-05 11:20 | Emergency Department Note ---
Disposition Clinical Impression: Hepatic encephalopathy, Acute kidney injury, Confusion, Weakness, Hyperkalemia , Hyperbilirubinemia Anemia Qualifiers: Anemia type: unspecified type Qualified Code(s): D64.9 - Anemia, unspecified Disposition: Admitted As Inpatient Condition: Serious Time of Disposition: 14:29 Weakness HPI - General Chief complaint: ED Weakness Stated complaint: gen weakness/abnormal labs sent per Dr Jain Time Seen by Provider: 09/05/17 11:05 Source: EMS Limitations: altered mental status Nursing Notes Reviewed: Yes Vital Signs Reviewed: Yes - History of Present Illness HPI Narrative: 81-year-old male who was directed to come to the ED by Dr. Jain of gastroenterology secondary to elevation of BUN/creatinine on labs that were taken yesterday. She was seeing Dr. Jain for follow-up concerning banding of his esophagus. Patient's family states patient has fairly bad dementia but has been having worsening confusion 2 days ago with associated worsening lower extremity swelling and edema bilaterally. Patient's family also recognize the patient's has been having increased weakness and is unable to stand or support himself from the waist down today. Pain Scale: 0 - Related Data Home Medications Medication Instructions Recorded Confirmed Lactobacillus Acidophilus/Pect 1 each PO DAILY 03/26/15 09/05/17 [Acidophilus-Pectin Capsule] Cyanocobalamin (Vitamin B-12) 1,000 mcg PO DAILY 04/27/15 09/05/17 [Vitamin B12] Multivitamin [Multi-Day Vitamins] 1 each PO DAILY 04/27/15 09/05/17 Mv-Mn/FA/Vit K1/Lycop/Lut/Zeax 2 tab PO DAILY 04/27/15 09/05/17 [Ocuvite Eye + Multi Tablet] Pantoprazole Sodium 40 mg PO DAILY 04/27/15 09/05/17 Furosemide [Lasix] 40 mg PO DAILY 07/29/15 09/05/17 Donepezil HCl [Aricept] 10 mg PO HS 07/27/17 09/05/17 Spironolactone [Aldactone] 100 mg PO DAILY 07/27/17 09/05/17 Escitalopram Oxalate [Escitalopram 5 mg PO DAILY 09/05/17 09/05/17 Oxalate] Lactulose 20 gm PO BID 09/05/17 09/05/17 Previous Rx's Medication Instructions Recorded Gabapentin [Neurontin] 300 mg PO BID #10 capsule 08/03/17 Rifaximin [Xifaxan] 550 mg PO BID #60 tablet 08/03/17 Tramadol HCl [Ultram] 50 mg PO TID PRN 5 Days #15 tab 08/03/17 Allergies Allergy/AdvReac Type Severity Reaction Status Date / Time acetaminophen [From Percocet] Allergy Nausea Verified 09/05/17 13:59 ciprofloxacin [From Cipro] AdvReac See Verified 09/05/17 13:59 Comments metronidazole [From Flagyl] AdvReac Dizziness Verified 09/05/17 13:59 Oxycodone [From Percocet] AdvReac Nausea Verified 09/05/17 13:59 All systems ED: reviewed and negative except as stated. Review of Systems: As Per HPI Constitutional: Reports: weakness. Denies: fever Gastrointestinal: Reports: abdominal pain Musculoskeletal: Reports: joint swelling Past Medical History - Past Medical History Attestation: Yes The following information was validated with the patient. Source: old records reviewed, obtained from family ( and daughter at bedside ) Medical history: Reports: cirrhosis, dementia, liver disease Surgical history: Reports: other (variceal banding/EGD) Psychiatric history: Reports: no psych history - Social History Smoking Status: Never smoker Smokeless Tobacco Status: No Alcohol use: Reports: none Drug use: Reports: none Physical Exam Vital Signs Temperature 96.4 F L 09/05/17 11:04 Pulse Rate 61 09/05/17 11:04 Respiratory Rate 14 09/05/17 11:04 Blood Pressure 120/55 09/05/17 11:04 O2 Sat by Pulse Oximetry 99 09/05/17 11:04 Temperature 96.4 F L 09/05/17 11:04 Pulse Rate 51 09/05/17 11:19 Respiratory Rate 12 09/05/17 11:19 Blood Pressure 126/52 09/05/17 11:19 O2 Sat by Pulse Oximetry 99 09/05/17 11:19 Oxygen Delivery Oxygen Delivery Room Air CONSTITUTIONAL: Well-appearing; well-nourished; A&O X 2 marginally for himself , birthdate, and understands he is in the hospital. Patient is in no apparent distress HEAD: Normocephalic; atraumatic EYES: PERRL, no scleral icterus NOSE: The nose is normal in appearance without rhinorrhea NECK: No JVD or distended neck veins RESP: Normal chest excursion with respiration; breath sounds clear and equal bilaterally; no wheezes, rhonchi, or rales CARD: Regular rhythm, blowing systolic murmur, rub or gallop ABD: Non-distended; non-tender, soft, without rigidity, rebound or guarding,no pulsatile mass CHEST: No pain with palpation SKIN: Normal for age and race; warm and dry without diaphoresis ; no apparent lesions EXTREMITIES: Pulses are 2 plus and equal times 4 extremities, Refill delayed at bilateral upper extremities, and bilateral 2+ pitting edema to include foot ankles and distal tib-fib area. Patient is nontender to palpation. - General Limitations: altered mental status General appearance: alert, in no apparent distress Course - Consultations Consultation #1: Dr. Jain was consulted and agrees with assessment for hepatic encephalopathy and acute kidney injury and recommends patient be started on IV fluids which she has not really been started on. Patient will be admitted and he will see patient in consult. Time: 14:27 Vital Signs Temperature 96.4 F L 09/05/17 11:04 Pulse Rate 61 09/05/17 11:04 Respiratory Rate 14 09/05/17 11:04 Blood Pressure 120/55 09/05/17 11:04 O2 Sat by Pulse Oximetry 99 09/05/17 11:04 Temperature 97.6 F 09/05/17 19:43 Pulse Rate 50 09/05/17 19:43 Respiratory Rate 18 09/05/17 19:43 Blood Pressure 125/64 09/05/17 19:43 O2 Sat by Pulse Oximetry 96 09/05/17 19:43 Oxygen Delivery Oxygen Delivery Room Air Weakness - MDM Narrative Medical decision making narrative: Patient is concerning for weakness and confusion that is possibly secondary to acute kidney injury resulting in prerenal azotemia, electrolyte abnormalities, increased ammonia levels with resulting hepatic encephalopathy given patient's history of cirrhosis and ascites. Bedside ultrasound was performed which was nondiagnostic secondary to inability to visualize IVC to check for fluid status. There is a loculation of ascitic fluid anterior to the liver. Due to patient's inability to express abdominal discomfort patient was sent for CT abdomen and pelvis. Patient's lab workup was positive for elevated ammonia levels, elevated BUN and creatinine, as well as bilirubin, and AST. Patient has a mild hyperkalemia at 5.7 without any signs of cardiac involvement at this time. Patient also appears to be dehydrated and was started on IV rehydration therapy. Patient is third spacing a lot of intravascular fluid secondary to hypoalbuminemia with resulting 2+ pitting edema bilateral lower extremities secondary to reduction in intravascular oncotic pressure, but needs to fluid with results of hepatic encephalopathy and acute kidney injury. Patient starts having signs of cardiac involvement patient should be started on calcium carbonate. Dr. Jain has been consulted and updated on patient's progress and current condition. He stated that he will see the patient in consult. Recommendation is to admit to medicine for further treatment and evaluation. Patient and family understands and agrees to treatment plan. Patient is admitted to hospitalists Dr. Coats. - Lab Data Lab results reviewed: Yes I reviewed the patient's lab results. Lab results narrative: Short CBC 09/05/17 Range/Units 11:50 Hgb 10.1 L (12.9-16.9) g/dL Hct 30.0 L (37.5-50.1) % BMP 09/05/17 Range/Units 11:50 Sodium 131 L (136-145) mEq/L Potassium 5.7 H (3.5-5.1) mEq/L Chloride 106 (98-107) mEq/L Carbon Dioxide 22 L (23-29) mEq/L BUN 31 H (8-23) mg/dL Creatinine 1.75 H (0.70-1.30) mg/dL Glucose 90 (70-105) mg/dL Calcium 8.5 L (8.6-10.3) mg/dL Liver Function 09/05/17 Range/Units 11:50 Total Bilirubin 1.4 H (0.3-1.0) mg/dL Direct Bilirubin 0.5 H (0.0-0.2) mg/dL AST 56 H (13-39) Units/L ALT 43 (7-52) Units/L Alkaline Phosphatase 180 H (34-104) Units/L Albumin 2.4 L (3.5-5.7) g/dL Urine 09/05/17 Range/Units 12:40 Urine Color Yellow (Yellow) Urine Clarity Clear (Clear) Urine pH 6.5 (5.0-8.0) pH Units Ur Specific [place] 1.014 (1.010-1.025) Urine Protein Negative (Neg-Trace) mg/dL Urine Glucose (UA) Normal (Normal) mg/dL Result diagrams: 09/05/17 11:50 09/05/17 11:50 Lab Results 09/05/17 09/05/17 09/05/17 Range/Units 11:23 11:50 11:50 Hgb (12.9-16.9) g/dL Hct (37.5-50.1) % Sodium 131 L (136-145) mEq/L Potassium 5.7 H (3.5-5.1) mEq/L Chloride 106 (98-107) mEq/L Carbon Dioxide 22 L (23-29) mEq/L BUN 31 H (8-23) mg/dL Creatinine 1.75 H (0.70-1.30) mg/dL Est GFR ( Amer) 45 L (> 60) Est GFR (Non-Af Amer) 38 L (> 60) BUN/Creatinine Ratio 18 (6-26) Glucose 90 (70-105) mg/dL POC Glucose 85 (58-89) Calculated Osmolality 278 L (280-300) Calcium 8.5 L (8.6-10.3) mg/dL Total Bilirubin 1.4 H (0.3-1.0) mg/dL Direct Bilirubin 0.5 H (0.0-0.2) mg/dL Indirect Bilirubin 0.9 (0.0-1.2) mg/dL AST 56 H (13-39) Units/L ALT 43 (7-52) Units/L Alkaline Phosphatase 180 H (34-104) Units/L Ammonia 109 H (16-53) mcmol/L Serum Total Protein 5.6 L (6.4-8.9) g/dL Albumin 2.4 L (3.5-5.7) g/dL Globulin 3.2 (2.4-3.5) g/dL Albumin/Globulin Ratio 0.8 L (1.1-2.2) Urine Color (Yellow) Urine Clarity (Clear) Urine pH (5.0-8.0) pH Units Ur Specific [place] (1.010-1.025) Urine Protein (Neg-Trace) mg/dL Urine Glucose (UA) (Normal) mg/dL Urine Ketones (Negative) mg/dL Urine Blood (Negative) Urine Nitrite (Negative) Urine Bilirubin (Negative) Urine Urobilinogen (Normal) mg/dL Ur Leukocyte Esterase (Negative) Urine Microscopic RBC (0-3) per hpf Urine Microscopic WBC (0-3) per hpf Ur Squamous Epith Cells (None-Few) per lpf Urine Bacteria (None-Few) per hpf Hyaline Casts (None-Few) per lpf 09/05/17 09/05/17 Range/Units 11:50 12:40 Hgb 10.1 L (12.9-16.9) g/dL Hct 30.0 L (37.5-50.1) % Sodium (136-145) mEq/L Potassium (3.5-5.1) mEq/L Chloride (98-107) mEq/L Carbon Dioxide (23-29) mEq/L BUN (8-23) mg/dL Creatinine (0.70-1.30) mg/dL Est GFR ( Amer) (> 60) Est GFR (Non-Af Amer) (> 60) BUN/Creatinine Ratio (6-26) Glucose (70-105) mg/dL POC Glucose (58-89) Calculated Osmolality (280-300) Calcium (8.6-10.3) mg/dL Total Bilirubin (0.3-1.0) mg/dL Direct Bilirubin (0.0-0.2) mg/dL Indirect Bilirubin (0.0-1.2) mg/dL AST (13-39) Units/L ALT (7-52) Units/L Alkaline Phosphatase (34-104) Units/L Ammonia (16-53) mcmol/L Serum Total Protein (6.4-8.9) g/dL Albumin (3.5-5.7) g/dL Globulin (2.4-3.5) g/dL Albumin/Globulin Ratio (1.1-2.2) Urine Color Yellow (Yellow) Urine Clarity Clear (Clear) Urine pH 6.5 (5.0-8.0) pH Units Ur Specific [place] 1.014 (1.010-1.025) Urine Protein Negative (Neg-Trace) mg/dL Urine Glucose (UA) Normal (Normal) mg/dL Urine Ketones Negative (Negative) mg/dL Urine Blood Negative (Negative) Urine Nitrite Negative (Negative) Urine Bilirubin Negative (Negative) Urine Urobilinogen Normal (Normal) mg/dL Ur Leukocyte Esterase Trace H (Negative) Urine Microscopic RBC 5-15 H (0-3) per hpf Urine Microscopic WBC 3-5 H (0-3) per hpf Ur Squamous Epith Cells Moderate H (None-Few) per lpf Urine Bacteria None Seen (None-Few) per hpf Hyaline Casts None Seen (None-Few) per lpf - Radiology Data Radiology results reviewed: Yes I reviewed the patient's radiology results. Abdomen/Pelvis CT 09/05/17 12:25 IMPRESSION: 1. Findings of cirrhosis and portal hypertension are demonstrated. Moderate volume ascites is noted, increased in the interval. Portal vein patency cannot be evaluated on this examination. 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 2. Diverticulosis. 3. Cholelithiasis. D/ / Jonn Abbasi / Jonn Abbasi Interpreting Provider: Jonn Abbasi - EKG Data EKG attestation: Yes I reviewed and interpreted this EKG. EKG results narrative: EKG taken 09/05/2017 1120 hrs. shows a sinus bradycardia at a rate of 53 bpm with no acute signs of ischemia for ST elevation or depression in the leads. There is some hyperacute T waves in leads 1, 2, 3 to, V3, V4, V5 and V6. Her QT was her only changes from previous EKG which sheers similar morphology previous EKG dated 08/02/2017
[2017-09-05] MEDS ORDERED: 0.9 % Sodium Chloride 500 ML IVC ONE ×2 (11:39→22:40)
[2017-09-05 12:18] LABS: Albumin 2.4 g/dL (3.5-5.7); Albumin/Globulin Ratio 0.8 (1.1-2.2); Bilirubin,Direct 0.5 mg/dL (0.0-0.2); Bilirubin,Indirect 0.9 mg/dL (0.0-1.2); Bilirubin,Total 1.4 mg/dL (0.3-1.0); Calcium 8.5 mg/dL (8.6-10.3); Globulin 3.2 g/dL (2.4-3.5); Potassium 5.7 mEq/L (3.5-5.1); Total Protein 5.6 g/dL (6.4-8.9)
[2017-09-05 12:35] LABS: Hemoglobin 10.1 g/dL (12.9-16.9)
[2017-09-05 12:54] LABS: Bilirubin,Urine Negative (Negative); Blood,Urine Negative (Negative); Clarity,Urine Clear (Clear); Color,Urine Yellow (Yellow); Glucose,Urine (UA) Normal (Normal); Ketones,Urine Negative (Negative); Leukocyte Esterase,Urine Trace (Negative); Nitrite,Urine Negative (Negative); PH,Urine 6.5 pH Units (5.0-8.0); Protein,Urine Negative (Neg-Trace); Specific Gravity,Urine 1.014 (1.010-1.025); Urobilinogen,Urine Normal (Normal)
[2017-09-05 12:55] LABS: Bacteria,Urine None Seen per hpf (None-Few); Hyaline Casts,Urine None Seen per lpf (None-Few); Squamous Epithelial Cell,Urine Moderate per lpf (None-Few)
[2017-09-05] MEDS ORDERED: 0.9 % Sodium Chloride 1,000 ML IVC ONE (14:14)
--- NOTE | 2017-09-05 16:28 | Emergency Department Note ---
START Narrative - START START: I examined this patient and my medical decision-making was reviewed with the Resident Physician. I agree with the documented findings, disposition and treatment plan as described except to the extent set forth below. brought in d/t generalized (non-lateralizing) weakness, subtle mental status changes with some SOB. W/U negative so far, UA pending. comfortable taking him home if W/U is negative. Pt appears comfortable, no respiratory difficulty, not in pain, benign exam. No new neuro sx - new stroke not in the differential.
--- NOTE | 2017-09-05 16:32 | Emergency Department Note ---
START Narrative - START START: I examined this patient and my medical decision-making was reviewed with the Resident Physician. I agree with the documented findings, disposition and treatment plan as described except to the extent set forth below. POCUS volume assessment attempted by me, unable to displace bowel gas from overlying bowel/stomach with probe compression, changes in pt position. Unable to adequately assess volume status by US.
--- NOTE | 2017-09-05 19:24 | Internal Med History&Physical ---
Date of Encounter: 09/05/17 Time of Encounter: 18:24 Assessment and Plan (1) Acute kidney injury Current visit: Yes Status: Acute Likely from hypoperfusion/hypotension given his BP severely low on admission. Will recheck BMP after fluid was given. If no significant improvement, may need Nephrology consult. (2) Hypotension Current visit: Yes Status: Acute Patient had BP 70s/40s on admission requiring 2 L IV fluid in ED. He is currently normotensive with SBP ranging from 120-130. He does have edema but because of his blood pressure needed fluids in this case. He will be judiciously hydrated with additional 500 cc bolus since patient does have cirrhosis will be cautious of fluid overload. Qualifiers: Hypotension type: unspecified hypotension type Qualified Code(s): I95.9 - Hypotension, unspecified (3) Hepatic encephalopathy Current visit: Yes Status: Acute Patient has history of cirrhosis and reported to be confused prior to admission. Ammonia found to be elevated on admission. - This is resolved as patient does seem to be at baseline mental status - Continue lactulose per home schedule (4) Hyperkalemia Current visit: Yes Status: Acute Related to SHAMIKA. s/p 2 units IV fluid, will finish additional 500 ml IV fluid slowly. Currently on telemetry monitoring. 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 (8) Bradycardia Current visit: No Status: Resolved Currently asymptomatic. Will monitor on telemetry in case this is related to hyperkalemia. Recheck EKG in AM. (9) DVT prophylaxis Current visit: No Status: Acute SCDs Internal Medicine - H&P: HPI History of present illness: Mr. Meneses is a 81 year old male with history of liver cirrhosis of unknown etiology was directed to come to the ED by Dr. Jain of gastroenterology secondary to elevation of BUN/creatinine on labs that were taken yesterday. Patient was getting follow-up concerning banding of his esophagus. Family at bedside noted for past several days he has been having less activity with weakness and lower extremity edema. He was unable to ambulate because of this. He has dementia at baseline but family states that he seemed less energetic recently. In ED workup showed that he had prerenal azotemia and elevated ammonia level. His was hypotensive on admission with BP ranged 70s/40s and he required [address] Jain was consulted and updated on patient's condition. He recommended admission and plans to see patient during admission. CT abdomen/ pelvis showed moderage ascites, paraesophageal and left periaortic varicies. Potassium was elevated at 5.7, an EKG showed sinus bradycardia at [address] changes He has dementia at baseline but during my exam he was in no acute distress and alert. He denied any complaints of chest pain, abdominal pain, fevers, shortness of breath, n/v, diarrhea. However, family at bedside notes that this may be unreliable history from him. Past Med Surg Social Fam HX - Past Medical History Medical history: cirrhosis, dementia, liver disease, other Psychiatric history: no psych history - Past Surgical History Surgical History: other - Social History Smoking Status: Never smoker Smokeless Tobacco Status: No Alcohol use: none Drug use: none - Family History Mother Hx Family Cardiac Disorders: Yes (CHF) Internal Medicine - H&P: Meds Lactobacillus Acidophilus/Pect [Acidophilus-Pectin Capsule] 1 each PO DAILY 08/09 [History] Cyanocobalamin (Vitamin B-12) [Vitamin B12] 1,000 mcg PO DAILY 04/27/15 [History ] Multivitamin [Multi-Day Vitamins] 1 each PO DAILY 04/27/15 [History] Mv-Mn/FA/Vit K1/Lycop/Lut/Zeax [Ocuvite Eye + Multi Tablet] 2 tab PO DAILY 04/27 [History] Pantoprazole Sodium 40 mg PO DAILY 04/27/15 [History] Furosemide [Lasix] 40 mg PO DAILY 07/29/15 [History] Donepezil HCl [Aricept] 10 mg PO HS 07/27/17 [History] Spironolactone [Aldactone] 100 mg PO DAILY 07/27/17 [History] Gabapentin [Neurontin] 300 mg PO BID #10 capsule 08/03/17 [Rx] Rifaximin [Xifaxan] 550 mg PO BID #60 tablet 08/03/17 [Rx] Tramadol HCl [Ultram] 50 mg PO TID PRN 5 Days #15 tab 08/03/17 [Rx] Escitalopram Oxalate [Escitalopram Oxalate] 5 mg PO DAILY 09/05/17 [History] Lactulose 20 gm PO BID 09/05/17 [History] 3 Allergy/AdvReac Type Severity Reaction Status Date / Time acetaminophen [From Percocet] Allergy Nausea Verified 09/05/17 13:59 ciprofloxacin [From Cipro] AdvReac See Verified 09/05/17 13:59 Comments metronidazole [From Flagyl] AdvReac Dizziness Verified 09/05/17 13:59 Oxycodone [From Percocet] AdvReac Nausea Verified 09/05/17 13:59 ROS unobtainable: due to mental status (has dementia at baseline.) All Systems PM: A 10-system review of systems was performed and is negative for pertinent findings except as documented above in the HPI. - Constitutional Vitals: Temp Pulse Resp BP Pulse Ox 97.4 F L 51 15 130/62 96 09/05/17 17:46 09/05/17 17:46 09/05/17 17:46 09/05/17 17:46 09/05/17 17:46 Exam: Gen: NAD, cooperative with exam, pleasant. AAOx1 CVS: RRR lungs: CTAB abd: NT, ND, soft Ext: 1+ bipedal edema Internal Med - H&P Results - Labs CBC & Chem 7: 09/05/17 11:50 09/05/17 11:50
[2017-09-05] MEDS ORDERED: traMADol 50 MG TABLET PO PRN (19:25)
[2017-09-05] MEDS ORDERED: Lactulose 200 GM/300 ML (for enema) RC SCH (21:00)
[2017-09-05] MEDS: Gabapentin 300 MG CAPSULE PO SCH (22:22)
[2017-09-05] MEDS: Lactulose 200 GM, Sodium Chloride IRRigation 700 ML RC SCH (23:15)
[2017-09-06 05:39] LABS: Basophils % 0.3 %; Eosinophils # 0.2 K/mcL (0.0-0.6); Eosinophils % 2.9 %; Hematocrit 31.1 % (37.5-50.1); Hemoglobin 10.2 g/dL (12.9-16.9); Immature Granulocytes % 0.8 % (0-4); Lymphocytes # 1.7 K/mcL (0.6-4.6); Lymphocytes % 22.6 %; Mean Corpuscular HGB Conc 32.8 g/dL (31.6-35.5); Mean Corpuscular Hemoglobin 33.9 pg (28.0-33.3); Mean Corpuscular Volume 103.3 fL (83.0-100.0); Mean Platelet Volume 10.4 fL (9.4-12.4); Monocytes # 1.1 K/mcL (0.0-1.3); Monocytes % 14.6 %; Neutrophils # 4.4 K/mcL (1.6-8.9); Platelet Count 115 K/mcL (140-400); Red Blood Count 3.01 M/mcL (4.19-5.50); Red Cell Distribution Width 16.5 % (11.5-14.5); Segmented Neutrophils % 58.8 %
[2017-09-06 05:57] LABS: Calcium 8.3 mg/dL (8.6-10.3); Magnesium 2.1 mg/dL (1.6-2.6); Phosphorous 3.5 mg/dL (2.7-4.5); Potassium 5.5 mEq/L (3.5-5.1)
--- NOTE | 2017-09-06 07:59 | Internal Med Progress Note ---
<Gonzalo Merchant - Last Filed: 09/06/17 13:07> Date of Encounter: 09/06/17 Time of Encounter: 07:42 - Assessment and plan (1) Hepatic encephalopathy Current Visit: Yes Status: Acute Assessment and plan: Patient has history of cirrhosis and reported to be confused prior to admission Ammonia found to be elevated on admission; 109 -This is resolved as patient does seem to be at baseline mental status -Lactulose has been increased to 20 mg QID -Paracentesis (2) Hypotension Current Visit: Yes Status: Acute Assessment and plan: Patient had BP 70s/40s on admission requiring 2 L IV fluid in ED He is currently normotensive with SBP ranging from 120-130 He does have edema but because of his BP needed fluids in this case He will be judiciously hydrated with additional 500 cc bolus since patient does have cirrhosis will be cautious of fluid overload Qualifiers: Hypotension type: unspecified hypotension type Qualified Code(s): I95.9 - Hypotension, unspecified (3) Cirrhosis Current Visit: No Status: Chronic Assessment and plan: INR pending; Patient will likely need paracentesis Qualifiers: Hepatic cirrhosis type: unspecified hepatic cirrhosis Ascites presence: with ascites Qualified Code(s): K74.60 - Unspecified cirrhosis of liver (4) Hyperkalemia Current Visit: Yes Status: Acute Assessment and plan: Possibly related to SHAMIKA -s/p 2 units IV fluid, will finish additional 500 ml IV fluid slowly -No EKG changes -Gave jayexalate today -Currently on telemetry monitoring -Repeat AM labs (5) Weakness Current Visit: Yes Status: Acute Assessment and plan: Likely multifactorial - PT/OT (6) Esophageal varices in cirrhosis Current Visit: No Status: Chronic Assessment and plan: GI consult (7) Bradycardia Current Visit: No Status: Resolved Assessment and plan: Currently asymptomatic -Telemetry -Recheck EKG in AM (8) Acute kidney injury Current Visit: Yes Status: Acute Assessment and plan: Likely from hypoperfusion/hypotension given his BP severely low on admission Resolved (9) DVT prophylaxis Current Visit: No Status: Acute Assessment and plan: SCDs - Subjective Interval history: 81-year-old male presented to ED per the recommendation of Dr. Snow secondary to elevation of BUN/creatinine. Patient was getting a follow-up concerning banding of his esophagus. Patients family was at bedside; reported that for the past several days, patient had been having less activity with weakness and lower extremity edema. Patient was unable to ambulate. Family also reports that patient is less energetic than normal. Patient was hypotensive on arrival and required 2 L of IV fluid. CT of the abdomen and pelvis demonstrated moderate ascites, paraesophageal and left periaortic varices. Patient was hyperkalemic at 5.7. EKG demonstrated sinus bradycardia without ST changes. Laboratory analysis demonstrated prerenal azotemia with elevated ammonia level. Patient was seen and examined at bedside this morning. Patient appears very drowsy, unable to answer questions at this time. - Constitutional Vitals: Temp Pulse Resp BP Pulse Ox 97.5 F L 52 20 125/53 98 09/06/17 07:38 09/06/17 07:38 09/06/17 07:38 09/06/17 07:38 09/06/17 07:38 General appearance: Present: A&O X 0. Absent: A&O X 3, answers questions appropriately - Head Head exam: Present: atraumatic, normocephalic - Eye Eye exam: Present: PERRL, conjuntiva pink, sclera anicteric Pupils: Present: PERRL - Neck Neck exam general surgery: Present: supple, trachea midline. Absent: lymphadenopathy - Respiratory Respiratory exam: Present: CTAB. Absent: accessory muscle use, rales, rhonchi, wheezes - Cardiovascular Cardiovascular exam: Present: bradycardia, +S1, +S2. Absent: diastolic murmur, gallop, rubs, systolic murmur - GI/Abdominal GI/Abdominal exam: Present: distended, hepatomegaly - Skin Skin exam: Present: dry, intact Internal Medicine: Result - Labs CBC & Chem 7: 09/06/17 05:00 09/06/17 05:00 Labs: Short CBC 09/06/17 Range/Units 05:00 WBC 7.5 (4.3-11.1) K/mcL Hgb 10.2 L (12.9-16.9) g/dL Hct 31.1 L (37.5-50.1) % Plt Count 115 L (140-400) K/mcL Neutrophils # 4.4 (1.6-8.9) K/mcL BMP 09/06/17 05:00 Sodium 135 L Potassium 5.5 H Chloride 109 H Carbon Dioxide 19 L BUN 31 H Creatinine 1.57 H Glucose 86 Calcium 8.3 L Consult Discharge Plan - Plan Referrals: Ki Lewis MD [Primary Care Provider] - (patient will follow up with ecf) <KaseyKimani Zulema - Last Filed: 09/06/17 14:22> Date of Encounter: 09/06/17 - Assessment and plan (1) Acute encephalopathy Current Visit: Yes Status: Acute (2) Acute kidney injury Current Visit: Yes Status: Acute (3) Anemia Current Visit: Yes Status: Chronic Qualifiers: Anemia type: unspecified type Qualified Code(s): D64.9 - Anemia, unspecified (4) Bradycardia Current Visit: Yes Status: Acute (5) Cirrhosis Current Visit: Yes Status: Chronic Qualifiers: Hepatic cirrhosis type: unspecified hepatic cirrhosis Ascites presence: with ascites Qualified Code(s): K74.60 - Unspecified cirrhosis of liver (6) Dementia Current Visit: Yes Status: Chronic Qualifiers: Dementia type: Alzheimer's disease Alzheimer's disease onset: late-onset Dementia behavioral disturbance: without behavioral disturbance Qualified Code (s): G30.1 - Alzheimer's disease with late onset; F02.80 - Dementia in other diseases classified elsewhere without behavioral disturbance; F02.80 - Dementia in other diseases classified elsewhere without behavioral disturbance; F02.80 - Dementia in other diseases classified elsewhere without behavioral disturbance (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 Current Visit: Yes Status: Chronic (8) Hepatic encephalopathy Current Visit: Yes Status: Acute (9) Pancytopenia Status: Chronic - Constitutional Vitals: Temp Pulse Resp BP Pulse Ox 97.3 F L 54 18 137/66 98 09/06/17 11:49 09/06/17 11:49 09/06/17 11:49 09/06/17 11:49 09/06/17 11:49 Internal Medicine: Result - Labs CBC & Chem 7: 09/06/17 05:00 09/06/17 05:00 Labs: Short CBC 09/06/17 Range/Units 05:00 WBC 7.5 (4.3-11.1) K/mcL Hgb 10.2 L (12.9-16.9) g/dL Hct 31.1 L (37.5-50.1) % Plt Count 115 L (140-400) K/mcL Neutrophils # 4.4 (1.6-8.9) K/mcL BMP 09/06/17 05:00 Sodium 135 L Potassium 5.5 H Chloride 109 H Carbon Dioxide 19 L BUN 31 H Creatinine 1.57 H Glucose 86 Calcium 8.3 L - ABG Interpretation ABG results: PT/INR, D-dimer PT 14.2 Seconds (9.4-12.1) H 09/06/17 10:06 - Attending Attestation I examined this patient and my medical decision-making was reviewed with the Resident Physician. I agree with the documented findings, disposition and treatment plan as described except to the extent set forth below. 81 years old male seen at the bedside with his son. The patient has multiple medical comorbidities which include liver cirrhosis decompensated with esophageal varices and ascites, chronic kidney disease, hypertension and dementia. The patient is admitted and being managed for acute kidney injury on chronic kidney disease, hepatic encephalopathy, hypotension and hyperkalemia. The patient was referred to the hospital from the GI physician office for elevated ammonia and diminished activities. During my evaluation in the bedside, the patient was barely palpable. His eyes and follow commands. Physical examination significant for moderate ascites chest is clear bilaterally and no pedal edema. Labs and imaging reviewed CBC shows microcytic anemia, potassium of 5.5 was 5.7 on admission, creatinine slightly improving. Ammonia >100 on admission Continue lactulose 20 mg 3 times a day, patient may receive lactulose enema if he is refusing by mouth, paracentesis is an to send ascitic fluid workup to rule out SBP, consult gastroenterology for EGD, give patient albumin. Rest of details is as in the resident physician's documentation.
[2017-09-06] MEDS ORDERED: traMADol 50 MG TABLET PO PRN (09:22)
[2017-09-06] MEDS ORDERED: Lactulose Oral Soln 20 GM/30 ML UDC PO SCH ×2 (09:30→13:00)
[2017-09-06] MEDS: Lactulose 200 GM, Sodium Chloride IRRigation 700 ML RC SCH (10:02)
[2017-09-06] MEDS: Lactobacillus 1 EACH CAP.SPRINK PO SCH (10:15)
[2017-09-06] MEDS: Gabapentin 300 MG CAPSULE PO SCH ×2 (10:15→21:00)
[2017-09-06] MEDS: Multivit/Ca/Min/Fe/FA 1 TAB TABLET PO SCH (10:15)
[2017-09-06] MEDS: Cyanocobalamin (B-12) 1,000 MCG TABLET PO SCH (10:15)
[2017-09-06 10:31] LABS: INR 1.3; Prothrombin Time 14.2 Seconds (9.4-12.1)
--- NOTE | 2017-09-06 10:52 | Gastroenterology Consult Note ---
<Tg Harper - Last Filed: 09/06/17 11:57> Date of Encounter: 09/06/17 Time of Encounter: 09:30 - Assessment and plan (1) Hepatic encephalopathy Current Visit: Yes Status: Acute Assessment and plan: Ammonia level 109 this am. Pt was recently started on xifaxan at home, needs to continue lactulose and xifaxan. Monitor labs, safety precautions. (2) Acute kidney injury Current Visit: Yes Status: Acute Assessment and plan: May be due to hypotension as well as lasix and aldactone for cirrhosis. Creatinine has improved with IV hydration, monitor labs, diuretics on hold. - Time Spent With Patient Total time spent is greater than 50% in coordination of care (as documented) at patient's floor/unit and/or counseling patient: GI History of Present Illness - Data of Consult Patient: known to practice within the last 3 years Consult date: 09/06/17 Requesting Physician: Carolyn Espinoza MD - Consult Narrative Reason for consult: cirrhosis History of present illness: Mr. Meneses is a 81 year old male with history of liver cirrhosis who was seen by Dr Jain in the office on 09/04/17. His family reported increased lethargy, weakness and lower extremity edema. Labs were ordered that day and when resulted the patient was found to have elevated creatinine and potassium and was notified to go to the ED for acute kidney injury. In ED workup showed that he had prerenal azotemia and elevated ammonia level. His was hypotensive on admission with BP ranged 70s/40s and he required [address] abdomen/ pelvis showed moderate ascites, paraesophageal and left periaortic varicies. Potassium was elevated at 5.7, an EKG showed sinus bradycardia at [address] changes. He has basline dementia, during exam the patient was drowsy but in no acute distress. Labs this morning show a Hgb 10.2, K 5.5, Creat 1.57, ammonia 109, T bili 1.4, ast 56, alt 43. Meld NA 17 Child [place] Class C Procedures: EGD 08/02/1718 Grade I-II varices banded with eradication, duodenal ulcer (focal gastric metaplasia), schatzki ring, Colonoscopy 04/23/2014 Dr. Tineo: 5 tubular adenoma, severe diverticulosis , internal hemorrhoids. EGD 04/23/2014 Dr. Tineo: Hiatus hernia, LA grade D esophagitis, Grade II esophageal varices, acute gastritis/duodenitis, multiple duodenal ulcers. NSAIDs: None Anticoagulation: None Past Med Surg Social Fam HX - Past Medical History Medical history: cirrhosis, dementia, liver disease, other Psychiatric history: no psych history - Past Surgical History Surgical History: other - Social History Smoking Status: Never smoker Smokeless Tobacco Status: No Alcohol use: none Drug use: none - Family History Mother Hx Family Cardiac Disorders: Yes (CHF) ROS unobtainable: due to mental status - Constitutional Vitals: Temp Pulse Resp BP Pulse Ox 97.5 F L 52 20 125/53 98 09/06/17 07:38 09/06/17 07:38 09/06/17 07:38 09/06/17 07:38 09/06/17 07:38 Exam: CONSTITUTIONAL:~alert, no acute distress.~HEAD:~normocephalic.~EYES:~no jaundice.~NECK:~no obvious swelling.~HEART:~bradycardic, Grade III systolic murmur noted.~LUNGS:~bilateral fair air entry.~ABDOMEN:~distended ascites noted , soft, non tender, no masses palpable, no organomegaly.~RECTAL EXAM:~Deferred.~ EXTREMITIES:~no clubbing, cyanosis, 2-3 + BLE edema.~SKIN:~pallor noted, no stigmata of chronic liver disease.~NEUROLOGIC:~very drowsy, no facial drooping noted.~~~~ Results - Labs CBC & Chem 7: 09/06/17 05:00 09/06/17 05:00 Labs: Last Result Calcium 8.3 mg/dL (8.6-10.3) L 09/06/17 05:00 Entire Visit Hgb 10.2 g/dL (12.9-16.9) L 09/06/17 05:00 Hct 31.1 % (37.5-50.1) L 09/06/17 05:00 PT 14.2 Seconds (9.4-12.1) H 09/06/17 10:06 Total Bilirubin 1.4 mg/dL (0.3-1.0) H 09/05/17 11:50 AST 56 Units/L (13-39) H 09/05/17 11:50 ALT 43 Units/L (7-52) 09/05/17 11:50 Ammonia 109 mcmol/L (16-53) H 09/05/17 11:50 - ABG ABG results: PT/INR, D-dimer PT 14.2 Seconds (9.4-12.1) H 09/06/17 10:06 Consult Discharge Plan - Plan Referrals: Ki Lewis MD [Primary Care Provider] - (patient will follow up with ecf) <Nelson Jain - Last Filed: 09/06/17 20:22> Date of Encounter: 09/06/17 Time of Encounter: 14:00 - Time Spent With Patient Total time spent is greater than 50% in coordination of care (as documented) at patient's floor/unit and/or counseling patient: GI History of Present Illness - Data of Consult Requesting Physician: Carolyn Espinoza MD - Consult Narrative History of present illness: Mr. Meneses is a 81 year old male - Constitutional Vitals: Temp Pulse Resp BP Pulse Ox 97.3 F L 55 14 138/63 97 09/06/17 20:06 09/06/17 20:06 09/06/17 20:06 09/06/17 20:06 09/06/17 20:06 Results - Labs CBC & Chem 7: 09/06/17 05:00 09/06/17 05:00 Labs: Last Result Calcium 8.3 mg/dL (8.6-10.3) L 09/06/17 05:00 Peritoneal Appearance CLEAR (Clear) 09/06/17 13:57 Peritoneal Volume 60.0 mL 09/06/17 13:57 Peritoneal RBC < 0.002 M/mcL (0.000-0.002) 09/06/17 13:57 Periton Tot Nuc Cells 63 TNC/mcL (0-300) 09/06/17 13:57 Periton Band Neuts Test Not Performed 09/06/17 13:57 Periton Monocytes % Test Not Performed 09/06/17 13:57 Peritoneal Tot Protein < 3.0 g/dL (No Ref Range) 09/06/17 13:57 Peritoneal Albumin < 1.5 g/dL (No Ref Range) 09/06/17 13:57 Peritoneal LDH < 25 Units/L (No Ref Range) 09/06/17 13:57 Entire Visit Hgb 10.2 g/dL (12.9-16.9) L 09/06/17 05:00 Hct 31.1 % (37.5-50.1) L 09/06/17 05:00 PT 14.2 Seconds (9.4-12.1) H 09/06/17 10:06 Total Bilirubin 1.4 mg/dL (0.3-1.0) H 09/05/17 11:50 AST 56 Units/L (13-39) H 09/05/17 11:50 ALT 43 Units/L (7-52) 09/05/17 11:50 Ammonia 109 mcmol/L (16-53) H 09/05/17 11:50 - ABG ABG results: PT/INR, D-dimer PT 14.2 Seconds (9.4-12.1) H 09/06/17 10:06 - Impressions Impressions Paracentesis Ultrasound 09/06/17 08:45 IMPRESSION: Successful ultrasound guided paracentesis. D/ / Anthony Dickerson MD / Anthony Dickerson MD Interpreting Provider: Anthony Dickerson MD - Attending Attestation I have personally performed a face to face evaluation on this patient. I have reviewed and agree with the care plan. History and Exam by me shows:
[2017-09-06] MEDS: Lactulose Oral Soln 20 GM/30 ML UDC PO SCH ×3 (12:51→21:00)
--- NOTE | 2017-09-06 14:10 | IR Procedure Note ---
Date of procedure: 09/06/17 Consent Obtained: Verbal consent, Written consent Timeout: Correct patient and procedure verified, Correct site verified, Time out performed, Skin prep completed Local anesthetic: Lidocaine 1% Indications: Ascites Procedure Performed: Paracentesis Was there an central supply assistant present: No Site/Technique: Ultrasound guided paracentesis Results/Findings: Serous ascites Estimated blood loss (cc): 1 Complications: None; Tolerated procedure well Post Procedure Treatment Plan: Continue inpatient care Specimen: Serous ascites
[2017-09-06 15:47] LABS: RBC,Peritoneal Fluid < 0.002 M/mcL
[2017-09-06 15:50] LABS: Appearance of Peritoneal Fl CLEAR (Clear)
[2017-09-06 16:03] LABS: LDH,Peritoneal Fluid < 25 Units/L (No Ref Range); Total Protein,Peritoneal Fluid < 3.0 g/dL (No Ref Range)
[2017-09-06] MEDS: Albumin 25% 25gram/100mL 25 GM/100 ML IV.SOLN IVPB SCH (16:46)
[2017-09-07] MEDS: Albumin 25% 25gram/100mL 25 GM/100 ML IV.SOLN IVPB SCH (00:43)
[2017-09-07 06:23] LABS: Basophils % 0.2 %; Red Cell Distribution Width 16.3 % (11.5-14.5)
[2017-09-07 06:25] LABS: Eosinophils # 0.1 K/mcL (0.0-0.6); Eosinophils % 3.3 %; Hematocrit 26.7 % (37.5-50.1); Hemoglobin 8.7 g/dL (12.9-16.9); Immature Granulocytes % 0.5 % (0-4); Immature Platelets 2.9 % (1.1-6.1); Lymphocytes # 1.1 K/mcL (0.6-4.6); Lymphocytes % 26.3 %; Mean Corpuscular HGB Conc 32.6 g/dL (31.6-35.5); Mean Corpuscular Hemoglobin 33.2 pg (28.0-33.3); Mean Corpuscular Volume 101.9 fL (83.0-100.0); Mean Platelet Volume 10.2 fL (9.4-12.4); Monocytes # 0.7 K/mcL (0.0-1.3); Monocytes % 15.2 %; Neutrophils # 2.3 K/mcL (1.6-8.9); Nucleated Red Blood Cells 0.5 /100 WBC (0); Red Blood Count 2.62 M/mcL (4.19-5.50); Segmented Neutrophils % 54.5 %
[2017-09-07 06:31] LABS: Calcium 8.6 mg/dL (8.6-10.3); Potassium 4.6 mEq/L (3.5-5.1)
[2017-09-07 06:35] LABS: Platelet Count 91 K/mcL (140-400)
--- NOTE | 2017-09-07 08:27 | Internal Med Progress Note ---
<Gonzalo Merchant - Last Filed: 09/07/17 12:57> Date of Encounter: 09/07/17 Time of Encounter: 08:45 - Assessment and plan (1) Hepatic encephalopathy Current Visit: Yes Status: Acute Assessment and plan: Patient has history of cirrhosis and reported to be confused prior to admission Ammonia found to be elevated on admission; 109 -This is resolved as patient does seem to be at baseline mental status -Lactulose has been increased to 20 mg QID -Paracentesis (2) Hypotension Current Visit: Yes Status: Acute Assessment and plan: Resolved; last BP was 115/49 -Patient had BP 70s/40s on admission requiring 2 L IV fluid in ED -Patient was given 2 bags of albumin Qualifiers: Hypotension type: unspecified hypotension type Qualified Code(s): I95.9 - Hypotension, unspecified (3) Cirrhosis Current Visit: Yes Status: Chronic Assessment and plan: INR pending; Patient will likely need paracentesis Qualifiers: Hepatic cirrhosis type: unspecified hepatic cirrhosis Ascites presence: with ascites Qualified Code(s): K74.60 - Unspecified cirrhosis of liver (4) Hyperkalemia Current Visit: Yes Status: Acute Assessment and plan: Possibly related to SHAMIKA -s/p 2 units IV fluid, will finish additional 500 ml IV fluid slowly -No EKG changes -Currently on telemetry monitoring -Repeat AM labs (5) Weakness Current Visit: Yes Status: Acute Assessment and plan: Likely multifactorial - PT/OT (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 Patient is much more alert today and is able to answer questions. Does not remember paracentesis. States that he is feeling well, and denies having any complaints at this time. - Constitutional Vitals: Temp Pulse Resp BP Pulse Ox 97.6 F 57 16 115/49 97 09/07/17 07:43 09/07/17 07:43 09/07/17 07:43 09/07/17 07:43 09/07/17 07:43 General appearance: Present: pleasant, no acute distress, answers questions appropriately - Head Head exam: Present: atraumatic, normocephalic - Eye Eye exam: Present: PERRL, conjuntiva pink, sclera anicteric Pupils: Present: PERRL - Neck Neck exam general surgery: Present: supple, trachea midline. Absent: lymphadenopathy - Respiratory Respiratory exam: Present: CTAB. Absent: accessory muscle use, rales, rhonchi, wheezes - Cardiovascular Cardiovascular exam: Present: RRR, +S1, +S2. Absent: diastolic murmur, gallop, rubs, systolic murmur - GI/Abdominal GI/Abdominal exam: Present: distended, hepatomegaly - Extremities Exam Extremities exam: Present: warm, radial pulses palpable and symmetrical. Absent : calf tenderness, cyanotic, pedal edema - Neurological Exam Neurological exam: Present: no focal deficits. Absent: pronater drift, facial droop, speech deficit - Skin Skin exam: Present: dry, intact Internal Medicine: Result - Labs CBC & Chem 7: 09/07/17 05:40 09/07/17 05:40 Labs: Short CBC 09/07/17 Range/Units 05:40 WBC 4.3 (4.3-11.1) K/mcL Hgb 8.7 L D (12.9-16.9) g/dL Hct 26.7 L (37.5-50.1) % Plt Count 91 L (140-400) K/mcL Neutrophils # 2.3 (1.6-8.9) K/mcL BMP 09/07/17 05:40 Sodium 142 Potassium 4.6 Chloride 114 H Carbon Dioxide 19 L BUN 29 H Creatinine 1.44 H Glucose 86 Calcium 8.6 - ABG Interpretation ABG results: PT/INR, D-dimer PT 14.2 Seconds (9.4-12.1) H 09/06/17 10:06 - Impressions Impressions Paracentesis Ultrasound 09/06/17 08:45 IMPRESSION: Successful ultrasound guided paracentesis. D/ / Anthony Dickerson MD / Anthony Dickerson MD Interpreting Provider: Anthony Dickerson MD Consult Discharge Plan - Plan Referrals: Ki Lewis MD [Primary Care Provider] - (patient will follow up with ecf) <Kimani Parks - Last Filed: 09/07/17 13:08> Date of Encounter: 09/07/17 - Assessment and plan (1) Acute encephalopathy Current Visit: Yes Status: Acute (2) Acute kidney injury Current Visit: Yes Status: Acute (3) Anemia Current Visit: Yes Status: Chronic Qualifiers: Anemia type: unspecified type Qualified Code(s): D64.9 - Anemia, unspecified (4) Bradycardia Current Visit: Yes Status: Acute (5) Cirrhosis Current Visit: Yes Status: Chronic Qualifiers: Hepatic cirrhosis type: unspecified hepatic cirrhosis Ascites presence: with ascites Qualified Code(s): K74.60 - Unspecified cirrhosis of liver (6) Dementia Current Visit: Yes Status: Chronic Qualifiers: Dementia type: Alzheimer's disease Alzheimer's disease onset: late-onset Dementia behavioral disturbance: without behavioral disturbance Qualified Code (s): G30.1 - Alzheimer's disease with late onset; F02.80 - Dementia in other diseases classified elsewhere without behavioral disturbance; F02.80 - Dementia in other diseases classified elsewhere without behavioral disturbance; F02.80 - Dementia in other diseases classified elsewhere without behavioral disturbance (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 Current Visit: Yes Status: Chronic (8) Hepatic encephalopathy Current Visit: Yes Status: Acute (9) Pancytopenia Status: Chronic - Constitutional Vitals: Temp Pulse Resp BP Pulse Ox 97.3 F L 56 16 125/52 98 09/07/17 11:34 09/07/17 11:34 09/07/17 11:34 09/07/17 11:34 09/07/17 11:34 Internal Medicine: Result - Labs CBC & Chem 7: 09/07/17 05:40 09/07/17 05:40 Labs: Short CBC 09/07/17 Range/Units 05:40 WBC 4.3 (4.3-11.1) K/mcL Hgb 8.7 L D (12.9-16.9) g/dL Hct 26.7 L (37.5-50.1) % Plt Count 91 L (140-400) K/mcL Neutrophils # 2.3 (1.6-8.9) K/mcL BMP 09/07/17 05:40 Sodium 142 Potassium 4.6 Chloride 114 H Carbon Dioxide 19 L BUN 29 H Creatinine 1.44 H Glucose 86 Calcium 8.6 - ABG Interpretation ABG results: PT/INR, D-dimer PT 14.2 Seconds (9.4-12.1) H 09/06/17 10:06 - Impressions Impressions Paracentesis Ultrasound 09/06/17 08:45 IMPRESSION: Successful ultrasound guided paracentesis. D/ / Anthony Dickerson MD / Anthony Dickerson MD Interpreting Provider: Anthony Dickerson MD - Attending Attestation I examined this patient and my medical decision-making was reviewed with the Resident Physician. I agree with the documented findings, disposition and treatment plan as described except to the extent set forth below. 81 years old male seen at the bedside with his son. The patient has multiple medical comorbidities which include liver cirrhosis decompensated with esophageal varices and ascites, chronic kidney disease, hypertension and dementia. The patient is admitted and being managed for acute kidney injury on chronic kidney disease, hepatic encephalopathy, hypotension and hyperkalemia. The patient was referred to the hospital from the GI physician office for elevated ammonia and diminished activities. This morning, he is more awake and oriented to person only, per patients son he is back to his mental status baseline He follows commands, abdomen is benign and chest is CTAB. No pedal edema Lab and Imaging: Acute drop in Hb and PLT, possibly due to hemodilution patient has no source of bleeding, stool is brown, ascetic fluid work up (3.5L removed) shows no SBP. Culture and cytology pending Continue current management, Lasix and spironolactone are on hold due to SHAMIKA on CKD. Renal function is improving, baseline Cr is <1, Cr today 1.44, continue to monitor Rest of details as in the resident physicians documentation
[2017-09-07] MEDS: Lactobacillus 1 EACH CAP.SPRINK PO SCH (10:21)
[2017-09-07] MEDS: Gabapentin 300 MG CAPSULE PO SCH ×2 (10:21→22:07)
[2017-09-07] MEDS: Multivit/Ca/Min/Fe/FA 1 TAB TABLET PO SCH (10:22)
[2017-09-07] MEDS: Cyanocobalamin (B-12) 1,000 MCG TABLET PO SCH (10:22)
[2017-09-07] MEDS: Lactulose Oral Soln 20 GM/30 ML UDC PO SCH ×4 (10:22→22:06)
[2017-09-08 03:54] LABS: Monocytes % 17.2 %; Segmented Neutrophils % 53.9 %
[2017-09-08 03:57] LABS: Basophils % 0.4 %; Eosinophils # 0.2 K/mcL (0.0-0.6); Eosinophils % 3.3 %; Hematocrit 29.6 % (37.5-50.1); Hemoglobin 9.6 g/dL (12.9-16.9); Immature Granulocytes % 0.4 % (0-4); Immature Platelets 2.6 % (1.1-6.1); Lymphocytes # 1.3 K/mcL (0.6-4.6); Lymphocytes % 24.8 %; Mean Corpuscular HGB Conc 32.4 g/dL (31.6-35.5); Mean Corpuscular Hemoglobin 33.4 pg (28.0-33.3); Mean Corpuscular Volume 103.1 fL (83.0-100.0); Mean Platelet Volume 10.2 fL (9.4-12.4); Monocytes # 0.9 K/mcL (0.0-1.3); Neutrophils # 2.8 K/mcL (1.6-8.9); Platelet Count 101 K/mcL (140-400); Red Blood Count 2.87 M/mcL (4.19-5.50); Red Cell Distribution Width 16.4 % (11.5-14.5)
[2017-09-08 04:04] LABS: Calcium 8.8 mg/dL (8.6-10.3); Potassium 3.9 mEq/L (3.5-5.1)
[2017-09-08] MEDS: Cyanocobalamin (B-12) 1,000 MCG TABLET PO SCH (09:03)
[2017-09-08] MEDS: Lactobacillus 1 EACH CAP.SPRINK PO SCH (09:03)
[2017-09-08] MEDS: Lactulose Oral Soln 20 GM/30 ML UDC PO SCH ×4 (09:03→21:47)
[2017-09-08] MEDS: Multivit/Ca/Min/Fe/FA 1 TAB TABLET PO SCH (09:03)
[2017-09-08] MEDS: Gabapentin 300 MG CAPSULE PO SCH ×2 (09:04→21:48)
--- NOTE | 2017-09-08 17:49 | Internal Med Progress Note ---
Date of Encounter: 09/08/17 Time of Encounter: 12:30 - Assessment and plan (1) Acute encephalopathy Current Visit: Yes Status: Resolved Assessment and plan: resolved, patient is at his baseline (2) Acute kidney injury Current Visit: Yes Status: Acute Assessment and plan: improving, continue to monitor, avoid nephrotoxins (3) Anemia Current Visit: Yes Status: Chronic Assessment and plan: chronic, stable Qualifiers: Anemia type: unspecified type Qualified Code(s): D64.9 - Anemia, unspecified (4) Bradycardia Current Visit: Yes Status: Acute Assessment and plan: sinus, HR range from 50-60 Asymptomatic Continue to mnitor (5) Cirrhosis Current Visit: Yes Status: Chronic Assessment and plan: child C Decompensated with esophageal varices and ascites s/p 3.6L abd paracentensis Continue home meds Resume lasix a.m, if tolerated, resume spironolactone continue lactulose, goal BM 2-3 daily known to GI, follow up with GI Qualifiers: Hepatic cirrhosis type: unspecified hepatic cirrhosis Ascites presence: with ascites Qualified Code(s): K74.60 - Unspecified cirrhosis of liver (6) Dementia Current Visit: Yes Status: Chronic Assessment and plan: chronic, stable Qualifiers: Dementia type: Alzheimer's disease Alzheimer's disease onset: late-onset Dementia behavioral disturbance: without behavioral disturbance Qualified Code (s): G30.1 - Alzheimer's disease with late onset; F02.80 - Dementia in other diseases classified elsewhere without behavioral disturbance; F02.80 - Dementia in other diseases classified elsewhere without behavioral disturbance; F02.80 - Dementia in other diseases classified elsewhere without behavioral disturbance (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 Current Visit: Yes Status: Chronic Assessment and plan: chronic, stable (8) Hepatic encephalopathy Current Visit: Yes Status: Resolved (9) Pancytopenia Status: Chronic Assessment and plan: chronic, stable - Subjective Interval history: Seen and examined with at the bedside NO new complains Qualified for ECF and has been accepted, his renal function is slowly improving , his mental status is at his baseline, we will resume his diuretics and observe for one more day prior to discharge - Constitutional Vitals: Temp Pulse Resp BP Pulse Ox 97.2 F L 54 18 128/61 99 09/08/17 15:42 09/08/17 15:42 09/08/17 15:42 09/08/17 15:42 09/08/17 15:42 General appearance: Present: A&O X 2, pleasant, no acute distress, answers questions appropriately - Head Head exam: Present: atraumatic, normocephalic - Eye Eye exam: Present: PERRL, conjuntiva pink, sclera anicteric Pupils: Present: PERRL - Neck Neck exam general surgery: Present: supple, trachea midline. Absent: lymphadenopathy - Respiratory Respiratory exam: Present: CTAB. Absent: accessory muscle use, rales, rhonchi, wheezes - Cardiovascular Cardiovascular exam: Present: RRR, +S1, +S2. Absent: diastolic murmur, gallop, rubs, systolic murmur - GI/Abdominal GI/Abdominal exam: Present: normal bowel sounds, soft, no peritoneal signs. Absent: distended, tenderness - Extremities Exam Extremities exam: Present: warm, radial pulses palpable and symmetrical. Absent : calf tenderness, cyanotic, pedal edema - Neurological Exam Neurological exam: Present: alert, CN II-XII intact, no focal deficits. Absent : oriented X3, pronater drift, facial droop, speech deficit - Skin Skin exam: Present: dry, intact Internal Medicine: Result - Labs CBC & Chem 7: 09/08/17 03:04 09/08/17 03:04 Labs: Short CBC 09/08/17 Range/Units 03:04 WBC 5.2 (4.3-11.1) K/mcL Hgb 9.6 L (12.9-16.9) g/dL Hct 29.6 L (37.5-50.1) % Plt Count 101 L (140-400) K/mcL Neutrophils # 2.8 (1.6-8.9) K/mcL BMP 09/08/17 03:04 Sodium 141 Potassium 3.9 Chloride 114 H Carbon Dioxide 20 L BUN 27 H Creatinine 1.42 H Glucose 114 H Calcium 8.8 - ABG Interpretation ABG results: PT/INR, D-dimer PT 14.2 Seconds (9.4-12.1) H 09/06/17 10:06 - VTE Documentation of Mechanical Device: Intermittent pneumatic compression device Consult Discharge Plan - Plan Referrals: Ki Lewis MD [Primary Care Provider] - (patient will follow up with ecf)
[2017-09-09] MEDS: Furosemide 20 MG TABLET PO SCH (09:45)
[2017-09-09] MEDS: Multivit/Ca/Min/Fe/FA 1 TAB TABLET PO SCH (09:45)
[2017-09-09] MEDS: Gabapentin 300 MG CAPSULE PO SCH ×2 (09:45→20:50)
[2017-09-09] MEDS: Lactulose Oral Soln 20 GM/30 ML UDC PO SCH ×4 (09:45→20:50)
[2017-09-09] MEDS: Cyanocobalamin (B-12) 1,000 MCG TABLET PO SCH (09:45)
[2017-09-09] MEDS: Lactobacillus 1 EACH CAP.SPRINK PO SCH (09:45)
--- NOTE | 2017-09-09 09:48 | Electrocardiograph Report ---
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
[2017-09-09] MEDS: 0.9 % Sodium Chloride 1,000 ML IVC SCH (13:14)
--- NOTE | 2017-09-09 13:55 | Internal Med Progress Note ---
Date of Encounter: 09/09/17 Time of Encounter: 13:53 - Assessment and plan (1) Acute encephalopathy Current Visit: Yes Status: Resolved Assessment and plan: resolved. Mentation at baseline (2) Acute kidney injury Current Visit: Yes Status: Acute Assessment and plan: Cr 1.75; baseline normal. Possibly secondary to poor PO intake. Gentle IV fluids, avoid nephrotoxic agents as possible. Monitor repeat renal function. (3) Anemia Current Visit: Yes Status: Chronic Assessment and plan: per hx. Hgb stable. No active bleeding. Adamantly monitor CBC. Qualifiers: Anemia type: unspecified type Qualified Code(s): D64.9 - Anemia, unspecified (4) Bradycardia Current Visit: Yes Status: Acute Assessment and plan: sinus, HR range from 50-60. Asymptomatic. Continue to monitor (5) Cirrhosis Current Visit: Yes Status: Chronic Assessment and plan: Decompensated with esophageal varices and ascites. s/p 3.6L abd paracentensis. Continue home Lasix, spironolactone, lactulose (go BM 2-3 daily). Qualifiers: Hepatic cirrhosis type: unspecified hepatic cirrhosis Ascites presence: with ascites Qualified Code(s): K74.60 - Unspecified cirrhosis of liver (6) Dementia Current Visit: Yes Status: Chronic Assessment and plan: per hx. Mentation appears to be at baseline. Supportive care. Qualifiers: Dementia type: Alzheimer's disease Alzheimer's disease onset: late-onset Dementia behavioral disturbance: without behavioral disturbance Qualified Code (s): G30.1 - Alzheimer's disease with late onset; F02.80 - Dementia in other diseases classified elsewhere without behavioral disturbance; F02.80 - Dementia in other diseases classified elsewhere without behavioral disturbance; F02.80 - Dementia in other diseases classified elsewhere without behavioral disturbance (7) Pancytopenia Current Visit: Yes Status: Chronic Assessment and plan: Chronic, stable. No active bleeding. Monitor repeat CBC. (8) DVT prophylaxis Current Visit: No Status: Acute Assessment and plan: SCDs - Subjective Interval history: Seen and examined at bedside. Patient is new to me, information obtained from chart review and patient report although patient has history of dementia is poor historian. Alert to self only, able to follow simple commands. No family at bedside for collateral. - Constitutional Vitals: Temp Pulse Resp BP Pulse Ox 97.7 F 59 16 146/65 97 03/18/18 11:13 09/09/17 11:13 09/09/17 11:13 09/09/17 11:13 09/09/17 11:13 General appearance: Present: A&O X 1, pleasant, no acute distress, answers questions appropriately - Head Head exam: Present: atraumatic, normocephalic - Eye Eye exam: Present: PERRL, conjuntiva pink, sclera anicteric Pupils: Present: PERRL - Neck Neck exam general surgery: Present: supple, trachea midline. Absent: lymphadenopathy - Respiratory Respiratory exam: Present: CTAB. Absent: accessory muscle use, rales, rhonchi, wheezes - Cardiovascular Cardiovascular exam: Present: RRR, +S1, +S2. Absent: diastolic murmur, gallop, rubs, systolic murmur - GI/Abdominal GI/Abdominal exam: Present: normal bowel sounds, soft, no peritoneal signs. Absent: distended, tenderness - Extremities Exam Extremities exam: Present: warm, radial pulses palpable and symmetrical. Absent : calf tenderness, cyanotic, pedal edema - Neurological Exam Neurological exam: Present: CN II-XII intact, oriented X3, no focal deficits. Absent: pronater drift, facial droop, speech deficit - Skin Skin exam: Present: dry, intact Internal Medicine: Result - Labs CBC & Chem 7: 09/08/17 03:04 09/08/17 03:04 - ABG Interpretation ABG results: PT/INR, D-dimer PT 14.2 Seconds (9.4-12.1) H 09/06/17 10:06 - VTE Documentation of Mechanical Device: Intermittent pneumatic compression device Consult Discharge Plan - Plan Referrals: Ki Lewis MD [Primary Care Provider] - (patient will follow up with ecf)
[2017-09-10] MEDS: 0.9 % Sodium Chloride 1,000 ML IVC SCH (01:51)
[2017-09-10] MEDS: Lactobacillus 1 EACH CAP.SPRINK PO SCH (08:37)
[2017-09-10] MEDS: Lactulose Oral Soln 20 GM/30 ML UDC PO SCH ×2 (08:37→12:45)
[2017-09-10] MEDS: Multivit/Ca/Min/Fe/FA 1 TAB TABLET PO SCH (08:37)
[2017-09-10] MEDS: Gabapentin 300 MG CAPSULE PO SCH (08:37)
[2017-09-10] MEDS: Furosemide 20 MG TABLET PO SCH (08:37)
[2017-09-10] MEDS: Cyanocobalamin (B-12) 1,000 MCG TABLET PO SCH (08:37)
[2017-09-10 10:02] LABS: BUN/Creatinine Ratio 18 (6-26); Blood Urea Nitrogen 22 mg/dL (8-23); Calcium 8.3 mg/dL (8.6-10.3); Carbon Dioxide 21 mEq/L (23-29); Chloride 114 mEq/L (98-107); Glucose 135 mg/dL (70-105); Osmolality,Calculated 291 (280-300); Potassium 4.2 mEq/L (3.5-5.1); Sodium 138 mEq/L (136-145); eGFR For African Americans > 60 (> 60); eGFR For Non-African Americans 59 (> 60)
--- NOTE | 2017-09-10 10:39 | Discharge Summary ---
Orders not resulted at time of discharge: Pending orders 09/06/17 06:00 EKG [ECG 12 lead ECG] [ECG] Routine Date of Encounter: 09/10/17 Time of Encounter: 10:34 - Discharge Diagnosis (1) Hepatic encephalopathy Priority: Primary Status: Resolved Comments: With altered mental status and elevated ammonia on admission (109). Home lactulose was resumed and mentation improved to baseline. Continue home xifaxan , lactulose (goal 2-3 BMs daily). (2) Cirrhosis Priority: Primary Status: Chronic Comments: child C; decompensated with esophageal varices and ascites. S/p 3.6L ABD paracentensis on 09/06/2017. No BB with bradycardia. Continue home Lasix, spironolactone, xifaxan, lactulose (go BM 2-3 daily). GI followed. Can follow- up with GI outpatient. Qualifiers: Hepatic cirrhosis type: unspecified hepatic cirrhosis Ascites presence: with ascites Qualified Code(s): K74.60 - Unspecified cirrhosis of liver (3) Acute kidney injury Priority: Primary Status: Acute Comments: likely from hypoperfusion/hypotension given severely BP low on admission. Renal function normalized with IV fluids. Avoid nephrotoxic agents as possible. Renal function can be monitored at SNF. (4) Anemia Priority: Secondary Status: Chronic Comments: per hx. Hgb stable at 9.6 at time of discharge. No active bleeding. CBC can be monitored at [facility]. Qualifiers: Anemia type: unspecified type Qualified Code(s): D64.9 - Anemia, unspecified (5) Bradycardia Priority: Primary Status: Acute Comments: with HRs in 40s-50s on arrival. Not on any khoa blocking agents. Telemetry review shows average heart rate 65 beats per minutes. Heart rate normalized to the 60s-70s. Would likely benefit from Holter monitor outpatient. (6) Dementia Priority: Secondary Status: Chronic Qualifiers: Dementia type: Alzheimer's disease Alzheimer's disease onset: late-onset Dementia behavioral disturbance: without behavioral disturbance Qualified Code (s): G30.1 - Alzheimer's disease with late onset; F02.80 - Dementia in other diseases classified elsewhere without behavioral disturbance; F02.80 - Dementia in other diseases classified elsewhere without behavioral disturbance; F02.80 - Dementia in other diseases classified elsewhere without behavioral disturbance (7) Pancytopenia Priority: Secondary Status: Chronic Comments: Chronic, stable. No active bleeding. Hospital course: Mr. Meneses is a 81 year old male with past medical history cirrhosis and dementia who presented [facility] from [facility] with altered mental status. He was found to be in hepatic encephalopathy secondary to elevated ammonia level. Mentation improved to baseline with resuming home lactulose. He was discharged back to the ECF in stable condition. Please see assessment and plan for further details - Time Spent with Patient Total time spent providing and/or coordinating discharge services: - Discharge Medications Prescriptions: Gabapentin [Neurontin] 300 mg PO BID #10 capsule Tramadol HCl [Ultram] 50 mg PO TID PRN 5 Days #15 tab PRN Reason: moderate to severe pain Home Medications: Lactobacillus Acidophilus/Pect [Acidophilus-Pectin Capsule] 1 each PO DAILY 08/09 [History] Cyanocobalamin (Vitamin B-12) [Vitamin B12] 1,000 mcg PO DAILY 04/27/15 [History ] Multivitamin [Multi-Day Vitamins] 1 each PO DAILY 04/27/15 [History] Mv-Mn/FA/Vit K1/Lycop/Lut/Zeax [Ocuvite Eye + Multi Tablet] 2 tab PO DAILY 04/27 [History] Pantoprazole Sodium 40 mg PO DAILY 04/27/15 [History] Furosemide [Lasix] 40 mg PO DAILY 07/29/15 [History] Donepezil HCl [Aricept] 10 mg PO HS 07/27/17 [History] Spironolactone [Aldactone] 100 mg PO DAILY 07/27/17 [History] Rifaximin [Xifaxan] 550 mg PO BID #60 tablet 08/03/17 [Rx] Escitalopram Oxalate 5 mg PO DAILY 09/05/17 [History] Lactulose 20 gm PO BID 09/05/17 [History] Gabapentin [Neurontin] 300 mg PO BID #10 capsule 09/10/17 [Rx] Tramadol HCl [Ultram] 50 mg PO TID PRN 5 Days #15 tab 09/10/17 [Rx] Allergies/Adverse Reactions: 3 Allergy/AdvReac Type Severity Reaction Status Date / Time acetaminophen [From Percocet] Allergy Nausea Verified 09/05/17 13:59 ciprofloxacin [From Cipro] AdvReac See Verified 09/05/17 13:59 Comments metronidazole [From Flagyl] AdvReac Dizziness Verified 09/05/17 13:59 Oxycodone [From Percocet] AdvReac Nausea Verified 09/05/17 13:59 Date of admission: 09/05/17 16:13 Primary care physician: Ki Lewis MD Consults: 09/05/17 17:31 Consult to Workforce Staffing Advisor [CONS] Routine Reason for SW Consult: Home health care services. 09/05/17 22:54 Consult to Occupational Therapy [CONS] Routine Comment: Evaluate, develop and implement POC Reason for Consult: Evaluate, develop and implement POC Does patient have active BEDREST order?: No Is patient medically & hemodynamically stable?: Yes Consult to Physical Therapy [CONS] Routine Comment: Evaluate, develop and implement POC Reason for Consult: Disposition planning. Therapy - weakness in bed. Does patient have active BEDREST order?: No Is patient medically & hemodynamically stable?: Yes Discharging clinician: Jovanna Saunders Anticipated date of discharge: 09/10/17 - Constitutional Vitals: Temp Pulse Resp BP Pulse Ox 97.6 F 67 16 136/72 96 09/10/17 08:20 09/10/17 08:20 09/10/17 08:20 09/10/17 08:20 09/10/17 08:20 General appearance: Present: A&O X 1, pleasant, no acute distress, answers questions appropriately - Head Head exam: Present: atraumatic, normocephalic - Eye Eye exam: Present: PERRL, conjuntiva pink, sclera anicteric Pupils: Present: PERRL - Neck Neck exam general surgery: Present: supple, trachea midline. Absent: lymphadenopathy - Respiratory Respiratory exam: Present: CTAB. Absent: accessory muscle use, rales, rhonchi, wheezes - Cardiovascular Cardiovascular exam: Present: RRR, +S1, +S2. Absent: diastolic murmur, gallop, rubs, systolic murmur - GI/Abdominal GI/Abdominal exam: Present: normal bowel sounds, soft, no peritoneal signs. Absent: distended, tenderness - Extremities Exam Extremities exam: Present: pedal edema, warm, radial pulses palpable and symmetrical. Absent: calf tenderness, cyanotic - Neurological Exam Neurological exam: Present: CN II-XII intact, oriented X3, no focal deficits. Absent: pronater drift, facial droop, speech deficit - Skin Skin exam: Present: dry, intact - Patient Status Disposition: Transfer SNF Condition: Good Functional capacity at discharge: uses cane/walker Overall status at discharge: patient is back to baseline - Discharge Instructions Follow Up With: Ki Lewis MD [Primary Care Provider] - (patient will follow up with ecf) Nelson Jain MD [Partnered Physician] - (Please call for follow-up appt within 4 -6 weeks) - Diet and Activity Activity: as per physical therapy Diet: low salt diet - VTE Documentation of Mechanical Device: Intermittent pneumatic compression device
[2017-09-10 11:30] VITALS: BP 130/47
--- NOTE | 2017-09-10 12:16 | Physician Discharge Referral ---
ExtendedCare Referral Info Transfer To: ECF Provider in Charge: Jovanna Saunders CNP Provider in Charge after Transfer: Other Institutional Level of Care: Skilled (ECF provider) - Diagnosis (1) Hepatic encephalopathy Status: Resolved (2) Cirrhosis Status: Chronic (3) Acute kidney injury Status: Acute (4) Anemia Status: Chronic (5) Bradycardia Status: Acute (6) Dementia Status: Chronic (7) Pancytopenia Status: Chronic - Transfer Medications Prescriptions: Gabapentin [Neurontin] 300 mg PO BID #10 capsule Tramadol HCl [Ultram] 50 mg PO TID PRN 5 Days #15 tab PRN Reason: moderate to severe pain Home Medications: Lactobacillus Acidophilus/Pect [Acidophilus-Pectin Capsule] 1 each PO DAILY 08/09 [History] Cyanocobalamin (Vitamin B-12) [Vitamin B12] 1,000 mcg PO DAILY 04/27/15 [History ] Multivitamin [Multi-Day Vitamins] 1 each PO DAILY 04/27/15 [History] Mv-Mn/FA/Vit K1/Lycop/Lut/Zeax [Ocuvite Eye + Multi Tablet] 2 tab PO DAILY 04/27 [History] Pantoprazole Sodium 40 mg PO DAILY 04/27/15 [History] Furosemide [Lasix] 40 mg PO DAILY 07/29/15 [History] Donepezil HCl [Aricept] 10 mg PO HS 07/27/17 [History] Spironolactone [Aldactone] 100 mg PO DAILY 07/27/17 [History] Rifaximin [Xifaxan] 550 mg PO BID #60 tablet 08/03/17 [Rx] Escitalopram Oxalate 5 mg PO DAILY 09/05/17 [History] Lactulose 20 gm PO BID 09/05/17 [History] Gabapentin [Neurontin] 300 mg PO BID #10 capsule 09/10/17 [Rx] Tramadol HCl [Ultram] 50 mg PO TID PRN 5 Days #15 tab 09/10/17 [Rx] Allergies/Adverse Reactions: 3 Allergy/AdvReac Type Severity Reaction Status Date / Time acetaminophen [From Percocet] Allergy Nausea Verified 09/05/17 13:59 ciprofloxacin [From Cipro] AdvReac See Verified 09/05/17 13:59 Comments metronidazole [From Flagyl] AdvReac Dizziness Verified 09/05/17 13:59 Oxycodone [From Percocet] AdvReac Nausea Verified 09/05/17 13:59 - Respiratory Orders None Smoking Cessation: Smoking cessation has been advised. For more information, call the [place] Tobacco Quit Line at 3-619-BLUZ-NOW. - Advance Directives Code Status: DNR-Arrest/Don't Intubate - Mobility Orders Ambulate - Rehabiliation Orders Rehab Potential: Fair Rehab Orders: Evaluation for Physical Therapy, Evaluation for Occupational Therapy CERTIFICATION: I certify that the transfer of the above named patient to an Extended Care Facility is necessary for the continuing treatment of the diagnosis listed. The above information is true and accurate reflection of patient's current condition. Confidential - Redisclosure prohibited without a patient's written consent.
[2017-09-10 13:37] LABS: Alanine Aminotransferase 27 Units/L (7-52); Albumin 2.6 g/dL (3.5-5.7); Albumin/Globulin Ratio 0.9 (1.1-2.2); Alkaline Phosphatase 148 Units/L (34-104); Aspartate Amino Transferase 39 Units/L (13-39); Bilirubin,Direct 0.3 mg/dL (0.0-0.2); Bilirubin,Total 1.3 mg/dL (0.3-1.0); Globulin 2.8 g/dL (2.4-3.5); Total Protein 5.4 g/dL (6.4-8.9)
== END 2017-09-10 15:18 | DRG 683 ==
LOC: EMEROO 11:01 → 2ANU 16:13
PROVIDERS: ADMIT Student in an Organized Health Care Education/Training Program; ATTEND Family Medicine

== ENCOUNTER 2017-12-05 13:25 | Inpatient (IN) ==
[2017-12-05 14:11] LABS: VBG HCO3 18 mEq/L (21-27); VBG PCO2 30 mmHg (41-51); VBG PH 7.38 pH Units (7.32-7.42); VBG PO2 199 mmHg (25-50)
--- NOTE | 2017-12-05 14:14 | Emergency Department Note ---
Disposition Clinical Impression: HCAP (healthcare-associated pneumonia), Hypoxia, Pleural effusion, Acute kidney injury, Elevated troponin Disposition: Admitted As Inpatient Condition: Fair Time of Disposition: 15:17 General Adult HPI - General Chief complaint: ED Nausea/Vomiting/Diarrhea Stated complaint: nausea/vomitting Time Seen by Provider: 12/05/17 13:30 Source: EMS Limitations: no limitations Nursing Notes Reviewed: Yes Vital Signs Reviewed: Yes - History of Present Illness HPI Narrative: Mr. Meneses, 82 old male, presents from [facility] via EMS at the request of the [facility] physician. Patient has a history of hepatic encephalopathy with dementia and is unsure why he is here. Patient's is bedside and states that, for the last 5 days, he has had minimal by mouth intake. He does have some tenderness mouth, he tends to spit/vomit it back up. He is a history of hepatic cirrhosis, anemia, pancytopenia, and known hyperkalemia on lactulose. Per documentation with the patient, he has been diagnosed with hypochloremic metabolic acidosis. At baseline, patient is a bezoar. However, over last 5 days, he is not been ambulatory. CODE STATUS: DNR-Comfort Care. Documentation arrived from [facility] [place] with the patient is in his chart. I reaffirmed this CODE STATUS with the patient's at bedside. ROS: Positive: As above Negative: Fever, chills, chest pain, palpitations, change in diarrhea (baseline secondary to lactulose), constipation, melena, hematochezia, hematemesis, and usual back pain. Pain Scale: 0 - Related Data Home Medications Medication Instructions Recorded Confirmed Lactobacillus Acidophilus/Pect 1 each PO DAILY 03/26/15 12/05/17 [Acidophilus-Pectin Capsule] Cyanocobalamin (Vitamin B-12) 1,000 mcg PO DAILY 04/27/15 12/05/17 [Vitamin B12] Furosemide [Lasix] 40 mg PO BID 07/29/15 12/05/17 Donepezil HCl [Aricept] 10 mg PO HS 07/27/17 12/05/17 Escitalopram Oxalate 5 mg PO DAILY 09/05/17 12/05/17 Lactulose 45 gm PO QID 09/05/17 12/05/17 Pantoprazole Sodium [Protonix] 40 mg PO DAILY 12/05/17 12/05/17 Previous Rx's Medication Instructions Recorded Rifaximin [Xifaxan] 550 mg PO BID #60 tablet 08/03/17 Gabapentin [Neurontin] 300 mg PO BID #10 capsule 09/10/17 Tramadol HCl [Ultram] 50 mg PO TID PRN 5 Days #15 tab 09/10/17 Allergies Allergy/AdvReac Type Severity Reaction Status Date / Time acetaminophen [From Percocet] Allergy Nausea Verified 09/05/17 13:59 ciprofloxacin [From Cipro] AdvReac See Verified 09/05/17 13:59 Comments metronidazole [From Flagyl] AdvReac Dizziness Verified 09/05/17 13:59 Oxycodone [From Percocet] AdvReac Nausea Verified 09/05/17 13:59 All systems ED: reviewed and negative except as stated. Review of Systems: As Per HPI Past Medical History - Past Medical History Medical history: Reports: cirrhosis, dementia, liver disease, other Surgical history: Reports: other Psychiatric history: Reports: no psych history - Social History Smoking Status: Never smoker Smokeless Tobacco Status: No Alcohol use: Reports: none Drug use: Reports: none Physical Exam Vital Signs Reviewed General: Patient is alert, oriented, and in no acute distress. Head: atraumatic, normocephalic Eye: normal appearance, PERRL, EOMI, no scleral icterus, no conjunctival injection ENT: mucous membranes moist, normal external ear exam Neck: normal inspection, trachea midline, full ROM Chest: normal inspection, symmetric chest rise Respiratory: Good respiratory effort. Bilateral breath sounds are clear without wheezing, crackles, or rhonchi. Cardiovascular: Regular rate and rhythm. No clicks, rubs, gallops, or murmors. Normal heart sounds. Abdomen: Bowel sounds present normoactive x-4 quadrants. Abdomen is soft, nondistended, and nontender. No guarding or rebound. No organomegaly noted. Musculoskeletal: Spontaneously moving all extremities. Skin: warm, dry, intact. Neuro: Alert and oriented x4. Sensation light touch intact. He is clinically in a properly answering all questions. He does seem to be slightly confused as he has no complaints does not know why he is here; is baseline per bedside. Psych: Patient's affect is appropriate for situation. - General Limitations: no limitations General appearance: alert, in no apparent distress Course Course Narrative: EKG dated 12/05/17 at 13:31 interpreted as sinus rhythm with rate of 69. LA 197 , QRS 106, QTC 477. Baseline artifact. Normal axis. Nonspecific ST T changes. Compared to previous EKG dated 09/05/17 showing no acute ischemic changes comparison. Patient has no leukocytosis. His hemoglobin is 8.5 to me: This is his baseline. He does have an elevated troponin of 0.10. Suspect demand ischemia. He was given 324 aspirin chew. Because he comes from [facility] [place] and chest x- ray concerning for pneumonia, will cover for age With vancomycin and cefepime. Patient does not meet sepsis criteria at this time. I discussed the above the patient and his . They are agreeable to admission for continued evaluation and management. This I discussed the patient hospitalist who agrees to accept the patient for continued evaluation monitoring. Chest X-Ray 12/05/17 13:42 IMPRESSION: Moderate right pleural effusion with overlying atelectasis versus pneumonia. D/ / Anthony Dickerson MD / Anthony Dickerson MD Interpreting Provider: Anthony Dickerson MD Vital Signs Temperature 97.4 F L 12/05/17 13:30 Pulse Rate 70 12/05/17 13:30 Respiratory Rate 18 12/05/17 13:30 Blood Pressure 122/86 12/05/17 13:30 O2 Sat by Pulse Oximetry 92 12/05/17 13:30 Temperature 97.4 F L 12/05/17 13:30 Pulse Rate 70 12/05/17 13:30 Respiratory Rate 18 12/05/17 15:36 Blood Pressure 122/84 12/05/17 15:36 O2 Sat by Pulse Oximetry 92 12/05/17 13:30 Oxygen Delivery Oxygen Delivery Room Air Medical Decision Making - Lab Data Result diagrams: 12/05/17 13:53 12/05/17 13:53 Lab Results 12/05/17 12/05/17 12/05/17 Range/Units 13:53 13:53 13:53 WBC 7.0 D (4.3-11.1) K/mcL RBC 2.60 L (4.19-5.50) M/mcL Hgb 8.5 L (12.9-16.9) g/dL Hct 25.7 L (37.5-50.1) % MCV 98.8 (83.0-100.0) fL MCH 32.7 (28.0-33.3) pg MCHC 33.1 (31.6-35.5) g/dL RDW 17.1 H (11.5-14.5) % Plt Count 71 L (140-400) K/mcL MPV 10.3 (9.4-12.4) fL Immature Gran % 0.3 (0-4) % Seg Neutrophils % 67.5 % Lymphocytes % 15.6 % Monocytes % 13.8 % Eosinophils % 2.7 % Basophils % 0.1 % Neutrophils # 4.7 (1.6-8.9) K/mcL Lymphocytes # 1.1 (0.6-4.6) K/mcL Monocytes # 1.0 (0.0-1.3) K/mcL Eosinophils # 0.2 (0.0-0.6) K/mcL Basophils # 0.0 (0.0-0.2) K/mcL Immature Plt Fraction 2.7 (1.1-6.1) % PT 15.5 H (9.4-12.1) Seconds INR 1.4 VBG pH (7.32-7.42) pH Units VBG pCO2 (41-51) mmHg VBG pO2 (25-50) mmHg VBG HCO3 (21-27) mEq/L Sodium 136 (136-145) mEq/L Potassium 3.0 L (3.5-5.1) mEq/L Chloride 111 H (98-107) mEq/L Carbon Dioxide 17 L (23-29) mEq/L BUN 19 (8-23) mg/dL Creatinine 2.18 H (0.70-1.30) mg/dL Est GFR ( Amer) 35 L (> 60) Est GFR (Non-Af Amer) 29 L (> 60) BUN/Creatinine Ratio 9 (6-26) Glucose 142 H (70-105) mg/dL Calculated Osmolality 287 (280-300) Lactic Acid (0.5-2.2) mmol/L Calcium 8.4 L (8.6-10.3) mg/dL Total Bilirubin 1.1 H (0.3-1.0) mg/dL Direct Bilirubin 0.4 H (0.0-0.2) mg/dL Indirect Bilirubin 0.7 (0.0-1.2) mg/dL AST 35 (13-39) Units/L ALT 25 (7-52) Units/L Alkaline Phosphatase 182 H (34-104) Units/L Troponin I 0.10 H* (< 0.04) ng/mL Serum Total Protein 5.7 L (6.4-8.9) g/dL Albumin 2.3 L (3.5-5.7) g/dL Globulin 3.4 (2.4-3.5) g/dL Albumin/Globulin Ratio 0.7 L (1.1-2.2) Lipase 16 (11-82) Units/L 12/05/17 12/05/17 Range/Units 14:09 14:56 WBC (4.3-11.1) K/mcL RBC (4.19-5.50) M/mcL Hgb (12.9-16.9) g/dL Hct (37.5-50.1) % MCV (83.0-100.0) fL MCH (28.0-33.3) pg MCHC (31.6-35.5) g/dL RDW (11.5-14.5) % Plt Count (140-400) K/mcL MPV (9.4-12.4) fL Immature Gran % (0-4) % Seg Neutrophils % % Lymphocytes % % Monocytes % % Eosinophils % % Basophils % % Neutrophils # (1.6-8.9) K/mcL Lymphocytes # (0.6-4.6) K/mcL Monocytes # (0.0-1.3) K/mcL Eosinophils # (0.0-0.6) K/mcL Basophils # (0.0-0.2) K/mcL Immature Plt Fraction (1.1-6.1) % PT (9.4-12.1) Seconds INR VBG pH 7.38 (7.32-7.42) pH Units VBG pCO2 30 L (41-51) mmHg VBG pO2 199 H (25-50) mmHg VBG HCO3 18 L (21-27) mEq/L Sodium (136-145) mEq/L Potassium (3.5-5.1) mEq/L Chloride (98-107) mEq/L Carbon Dioxide (23-29) mEq/L BUN (8-23) mg/dL Creatinine (0.70-1.30) mg/dL Est GFR ( Amer) (> 60) Est GFR (Non-Af Amer) (> 60) BUN/Creatinine Ratio (6-26) Glucose (70-105) mg/dL Calculated Osmolality (280-300) Lactic Acid 1.6 (0.5-2.2) mmol/L Calcium (8.6-10.3) mg/dL Total Bilirubin (0.3-1.0) mg/dL Direct Bilirubin (0.0-0.2) mg/dL Indirect Bilirubin (0.0-1.2) mg/dL AST (13-39) Units/L ALT (7-52) Units/L Alkaline Phosphatase (34-104) Units/L Troponin I (< 0.04) ng/mL Serum Total Protein (6.4-8.9) g/dL Albumin (3.5-5.7) g/dL Globulin (2.4-3.5) g/dL Albumin/Globulin Ratio (1.1-2.2) Lipase (11-82) Units/L
[2017-12-05 14:28] LABS: Basophils % 0.1 %; Eosinophils % 2.7 %
[2017-12-05 14:29] LABS: Troponin I 0.1 ng/mL (< 0.04)
[2017-12-05 14:30] LABS: Eosinophils # 0.2 K/mcL (0.0-0.6); Hematocrit 25.7 % (37.5-50.1); Hemoglobin 8.5 g/dL (12.9-16.9); Immature Granulocytes % 0.3 % (0-4); Immature Platelets 2.7 % (1.1-6.1); Lymphocytes # 1.1 K/mcL (0.6-4.6); Lymphocytes % 15.6 %; Mean Corpuscular HGB Conc 33.1 g/dL (31.6-35.5); Mean Corpuscular Hemoglobin 32.7 pg (28.0-33.3); Mean Corpuscular Volume 98.8 fL (83.0-100.0); Mean Platelet Volume 10.3 fL (9.4-12.4); Monocytes % 13.8 %; Neutrophils # 4.7 K/mcL (1.6-8.9); Red Cell Distribution Width 17.1 % (11.5-14.5); Segmented Neutrophils % 67.5 %
[2017-12-05 14:31] LABS: Platelet Count 71 K/mcL (140-400)
[2017-12-05 14:35] LABS: INR 1.4; Prothrombin Time 15.5 Seconds (9.4-12.1)
[2017-12-05 14:41] LABS: Albumin 2.3 g/dL (3.5-5.7); Albumin/Globulin Ratio 0.7 (1.1-2.2); Bilirubin,Direct 0.4 mg/dL (0.0-0.2); Bilirubin,Indirect 0.7 mg/dL (0.0-1.2); Bilirubin,Total 1.1 mg/dL (0.3-1.0); Calcium 8.4 mg/dL (8.6-10.3); Globulin 3.4 g/dL (2.4-3.5); Total Protein 5.7 g/dL (6.4-8.9)
[2017-12-05] MEDS ORDERED: Aspirin 81 MG TAB.CHEW PO ONE (14:47)
[2017-12-05] MEDS ORDERED: Cefepime HCl 2,000 MG in 0.9 % Sodium Chloride Mini Bag 100 ML IVPB STA (14:48)
[2017-12-05] MEDS ORDERED: traMADol 50 MG TABLET PO PRN (15:40)
[2017-12-05] MEDS ORDERED: Naloxone 0.4 MG/ML INJ IVP PRN (15:40)
--- NOTE | 2017-12-05 15:54 | Internal Med History&Physical ---
Date of Encounter: 12/05/17 Time of Encounter: 15:51 Internal Medicine - H&P: HPI Chief complaint: decrease PO intake, diarrhea/emesis History of present illness: Mr. Meneses is a 82 year old male who has been at the [facility] since August 2017 secondary to progressive dementia and fall with a history of cryptogenic cirrhosis who presents to the hospital for evaluation of decrease PO intake, diarrhea/emesis. SNF physician did blood work that showed hyperchloremic metabolic acidosis and was concerned about what this could be leading to hospital admission. Family reported having diarrhea and emesis associated with decreased by mouth intake since last . Of note he is on daily lactulose for his cryptogenic cirrhosis. Emesis described to be nonbloody bilious. Diarrhea described to be nonbloody with brown in coloration. Unable to quantify how frequently diabetes but has not been significant enough to produce hypokalemia on blood work. Family reported that he is a DNR CCA and DNI. On review, he appears to be had completed a course of antibiotics for empiric UTI therapy. EKG personally reviewed with rate 69, normal sinus rhythm XR/XR chest 1V IMPRESSION: Moderate right pleural effusion with overlying atelectasis versus pneumonia. Past Med Surg Social Fam HX - Past Medical History Medical history: cirrhosis, dementia, liver disease, other Additional medical history: Hernia Psychiatric history: no psych history - Past Surgical History Surgical History: other - Social History Smoking Status: Never smoker Smokeless Tobacco Status: No Alcohol use: none Drug use: none - Family History Mother Hx Family Cardiac Disorders: Yes (CHF) Internal Medicine - H&P: Meds Lactobacillus Acidophilus/Pect [Acidophilus-Pectin Capsule] 1 each PO DAILY 08/09 [History] Cyanocobalamin (Vitamin B-12) [Vitamin B12] 1,000 mcg PO DAILY 04/27/15 [History ] Furosemide [Lasix] 40 mg PO BID 07/29/15 [History] Donepezil HCl [Aricept] 10 mg PO HS 07/27/17 [History] Rifaximin [Xifaxan] 550 mg PO BID #60 tablet 08/03/17 [Rx] Escitalopram Oxalate 5 mg PO DAILY 09/05/17 [History] Lactulose 45 gm PO QID 09/05/17 [History] Gabapentin [Neurontin] 300 mg PO BID #10 capsule 09/10/17 [Rx] Tramadol HCl [Ultram] 50 mg PO TID PRN 5 Days #15 tab 09/10/17 [Rx] Pantoprazole Sodium [Protonix] 40 mg PO DAILY 12/05/17 [History] 3 Allergy/AdvReac Type Severity Reaction Status Date / Time acetaminophen [From Percocet] Allergy Nausea Verified 09/05/17 13:59 ciprofloxacin [From Cipro] AdvReac See Verified 09/05/17 13:59 Comments metronidazole [From Flagyl] AdvReac Dizziness Verified 09/05/17 13:59 Oxycodone [From Percocet] AdvReac Nausea Verified 09/05/17 13:59 All Systems PM: A 10-system review of systems was performed and is negative for pertinent findings except as documented above in the HPI. Review of systems: ROS 14 point review of systems reviewed as best as possible given presentation. Pertinent positive or negative as per HPI or otherwise reviewed as negative - Constitutional Vitals: Temp Pulse Resp BP Pulse Ox 97.4 F L 70 18 122/84 92 12/05/17 13:30 12/05/17 13:30 12/05/17 15:36 12/05/17 15:36 12/05/17 13:30 Exam: General - Awake Psych - Appropriate affect/speech. No agitation Eyes - EVELINA. Eye lids intact. No scleral icterus Heart - Sinus. RRR. S1 and S2 present. No added HS/murmurs appreciated. No elevated JVD appreciated. Lung - Adequate air entry b/l, No crackles/wheezes appreciated GI - Soft, non-tender. No hepatosplenomegaly/ascites. BS+ - No CVA/suprapubic tenderness or palpable bladder distension Skin - Intact. No rash/petechiae/ecchymosis. Warm extremities. Trace bilateral edema Internal Med - H&P Results - Labs CBC & Chem 7: 12/05/17 13:53 12/05/17 13:53 - Assessment and plan (1) Hyperchloremic metabolic acidosis Current Visit: Yes Status: Acute Assessment and plan: He was transferred from [facility] to the hospital for workup of the above due to concerns from halfway doctor From history he has been having emesis and diarrhea for the last few days suspicious for the course of metabolic acidosis We would stop his lactulose that can worsen his diarrhea We will send stool studies to include C. difficile given recent antibiotic exposure for UTI (2) Hypoxia Current Visit: Yes Status: Acute Assessment and plan: He was mildly hypoxic in the ED and was empirically treated for hospital- acquired pneumonia with IV antibiotics I am unsure if he has pneumonia. We will check this with CT chest without contrast to rule out consolidation and to check amount of effusion in the lungs (3) Pleural effusion Current Visit: Yes Status: Acute Assessment and plan: We will check pleural effusion with CT of the chest without contrast We will withhold IV Lasix for now given his mild decreased intravascular volume May benefit from thoracentesis if effusion is significant on CT scan (4) Cirrhosis Current Visit: No Status: Chronic Assessment and plan: ag cirrhosis . continue xifaxan hold lactulose start aldactone Qualifiers: Hepatic cirrhosis type: unspecified hepatic cirrhosis Ascites presence: without ascites Qualified Code(s): K74.60 - Unspecified cirrhosis of liver (5) Hypokalemia Current Visit: No Status: Resolved Assessment and plan: Supplemental by mouth potassium Stop lactulose that will cause diarrhea and further GI loss (6) Renal azotemia Current Visit: Yes Status: Acute Assessment and plan: Mild chronic elevation in the setting of chronic kidney disease We will hold IV fluids to avoid further volume overload We will control loss due to GI tract with discontinuation of lactulose (7) Elevated troponin Current Visit: Yes Status: Acute Assessment and plan: Likely type II. Will trend (8) Dementia Current Visit: Yes Status: Acute Assessment and plan: prone to delirium Qualifiers: Dementia type: Alzheimer's disease Qualified Code(s): G30.8 - Other Alzheimer's disease; F02.80 - Dementia in other diseases classified elsewhere without behavioral disturbance - Time Spent With Patient Total time spent is greater than 50% in coordination of care (as documented) at patient's floor/unit and/or counseling patient:
--- NOTE | 2017-12-05 16:10 | Emergency Department Note ---
Disposition Clinical Impression: HCAP (healthcare-associated pneumonia), Hypoxia, Pleural effusion, Acute kidney injury, Elevated troponin Disposition: Admitted As Inpatient Condition: Fair General Adult HPI - General Chief complaint: ED Nausea/Vomiting/Diarrhea Stated complaint: nausea/vomitting Time Seen by Provider: 12/05/17 13:30 Source: EMS Limitations: no limitations - History of Present Illness Pain Scale: 0 - Related Data Home Medications Medication Instructions Recorded Confirmed Lactobacillus Acidophilus/Pect 1 each PO DAILY 03/26/15 12/05/17 [Acidophilus-Pectin Capsule] Cyanocobalamin (Vitamin B-12) 1,000 mcg PO DAILY 04/27/15 12/05/17 [Vitamin B12] Furosemide [Lasix] 40 mg PO BID 07/29/15 12/05/17 Donepezil HCl [Aricept] 10 mg PO HS 07/27/17 12/05/17 Escitalopram Oxalate 5 mg PO DAILY 09/05/17 12/05/17 Lactulose 45 gm PO QID 09/05/17 12/05/17 Pantoprazole Sodium [Protonix] 40 mg PO DAILY 12/05/17 12/05/17 Previous Rx's Medication Instructions Recorded Rifaximin [Xifaxan] 550 mg PO BID #60 tablet 08/03/17 Gabapentin [Neurontin] 300 mg PO BID #10 capsule 09/10/17 Tramadol HCl [Ultram] 50 mg PO TID PRN 5 Days #15 tab 09/10/17 Allergies Allergy/AdvReac Type Severity Reaction Status Date / Time acetaminophen [From Percocet] Allergy Nausea Verified 09/05/17 13:59 ciprofloxacin [From Cipro] AdvReac See Verified 09/05/17 13:59 Comments metronidazole [From Flagyl] AdvReac Dizziness Verified 09/05/17 13:59 Oxycodone [From Percocet] AdvReac Nausea Verified 09/05/17 13:59 Past Medical History - Past Medical History Medical history: Reports: cirrhosis, dementia, liver disease, other Surgical history: Reports: other Psychiatric history: Reports: no psych history - Social History Smoking Status: Never smoker Smokeless Tobacco Status: No Alcohol use: Reports: none Drug use: Reports: none Physical Exam - General Limitations: no limitations General appearance: alert, in no apparent distress Course Vital Signs Temperature 97.4 F L 12/05/17 13:30 Pulse Rate 70 12/05/17 13:30 Respiratory Rate 18 12/05/17 13:30 Blood Pressure 122/86 12/05/17 13:30 O2 Sat by Pulse Oximetry 92 12/05/17 13:30 Temperature 97.4 F L 12/05/17 13:30 Pulse Rate 70 12/05/17 13:30 Respiratory Rate 18 12/05/17 15:36 Blood Pressure 122/84 12/05/17 15:36 O2 Sat by Pulse Oximetry 92 12/05/17 13:30 Oxygen Delivery Oxygen Delivery Room Air Medical Decision Making - Lab Data Result diagrams: 12/05/17 13:53 12/05/17 13:53 Lab Results 12/05/17 12/05/17 12/05/17 Range/Units 13:53 13:53 13:53 WBC 7.0 D (4.3-11.1) K/mcL RBC 2.60 L (4.19-5.50) M/mcL Hgb 8.5 L (12.9-16.9) g/dL Hct 25.7 L (37.5-50.1) % MCV 98.8 (83.0-100.0) fL MCH 32.7 (28.0-33.3) pg MCHC 33.1 (31.6-35.5) g/dL RDW 17.1 H (11.5-14.5) % Plt Count 71 L (140-400) K/mcL MPV 10.3 (9.4-12.4) fL Immature Gran % 0.3 (0-4) % Seg Neutrophils % 67.5 % Lymphocytes % 15.6 % Monocytes % 13.8 % Eosinophils % 2.7 % Basophils % 0.1 % Neutrophils # 4.7 (1.6-8.9) K/mcL Lymphocytes # 1.1 (0.6-4.6) K/mcL Monocytes # 1.0 (0.0-1.3) K/mcL Eosinophils # 0.2 (0.0-0.6) K/mcL Basophils # 0.0 (0.0-0.2) K/mcL Immature Plt Fraction 2.7 (1.1-6.1) % PT 15.5 H (9.4-12.1) Seconds INR 1.4 VBG pH (7.32-7.42) pH Units VBG pCO2 (41-51) mmHg VBG pO2 (25-50) mmHg VBG HCO3 (21-27) mEq/L Sodium 136 (136-145) mEq/L Potassium 3.0 L (3.5-5.1) mEq/L Chloride 111 H (98-107) mEq/L Carbon Dioxide 17 L (23-29) mEq/L BUN 19 (8-23) mg/dL Creatinine 2.18 H (0.70-1.30) mg/dL Est GFR ( Amer) 35 L (> 60) Est GFR (Non-Af Amer) 29 L (> 60) BUN/Creatinine Ratio 9 (6-26) Glucose 142 H (70-105) mg/dL Calculated Osmolality 287 (280-300) Lactic Acid (0.5-2.2) mmol/L Calcium 8.4 L (8.6-10.3) mg/dL Total Bilirubin 1.1 H (0.3-1.0) mg/dL Direct Bilirubin 0.4 H (0.0-0.2) mg/dL Indirect Bilirubin 0.7 (0.0-1.2) mg/dL AST 35 (13-39) Units/L ALT 25 (7-52) Units/L Alkaline Phosphatase 182 H (34-104) Units/L Troponin I 0.10 H* (< 0.04) ng/mL Serum Total Protein 5.7 L (6.4-8.9) g/dL Albumin 2.3 L (3.5-5.7) g/dL Globulin 3.4 (2.4-3.5) g/dL Albumin/Globulin Ratio 0.7 L (1.1-2.2) Lipase 16 (11-82) Units/L 12/05/17 12/05/17 Range/Units 14:09 14:56 WBC (4.3-11.1) K/mcL RBC (4.19-5.50) M/mcL Hgb (12.9-16.9) g/dL Hct (37.5-50.1) % MCV (83.0-100.0) fL MCH (28.0-33.3) pg MCHC (31.6-35.5) g/dL RDW (11.5-14.5) % Plt Count (140-400) K/mcL MPV (9.4-12.4) fL Immature Gran % (0-4) % Seg Neutrophils % % Lymphocytes % % Monocytes % % Eosinophils % % Basophils % % Neutrophils # (1.6-8.9) K/mcL Lymphocytes # (0.6-4.6) K/mcL Monocytes # (0.0-1.3) K/mcL Eosinophils # (0.0-0.6) K/mcL Basophils # (0.0-0.2) K/mcL Immature Plt Fraction (1.1-6.1) % PT (9.4-12.1) Seconds INR VBG pH 7.38 (7.32-7.42) pH Units VBG pCO2 30 L (41-51) mmHg VBG pO2 199 H (25-50) mmHg VBG HCO3 18 L (21-27) mEq/L Sodium (136-145) mEq/L Potassium (3.5-5.1) mEq/L Chloride (98-107) mEq/L Carbon Dioxide (23-29) mEq/L BUN (8-23) mg/dL Creatinine (0.70-1.30) mg/dL Est GFR ( Amer) (> 60) Est GFR (Non-Af Amer) (> 60) BUN/Creatinine Ratio (6-26) Glucose (70-105) mg/dL Calculated Osmolality (280-300) Lactic Acid 1.6 (0.5-2.2) mmol/L Calcium (8.6-10.3) mg/dL Total Bilirubin (0.3-1.0) mg/dL Direct Bilirubin (0.0-0.2) mg/dL Indirect Bilirubin (0.0-1.2) mg/dL AST (13-39) Units/L ALT (7-52) Units/L Alkaline Phosphatase (34-104) Units/L Troponin I (< 0.04) ng/mL Serum Total Protein (6.4-8.9) g/dL Albumin (3.5-5.7) g/dL Globulin (2.4-3.5) g/dL Albumin/Globulin Ratio (1.1-2.2) Lipase (11-82) Units/L Attestation Statement - Attestation Attestation: I examined this patient and my medical decision-making was reviewed with the Resident Physician. I agree with the documented findings, disposition and treatment plan as described except to the extent set forth below. Patient is an 82-year-old white male who resides in an ECF who is sent to us by medics today for nausea and vomiting. 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 Patient is awake alert oriented to person only and not a good historian. Patient denies any symptoms at this time. Patient's room air sats were 92% but no increased work of breathing or signs of respiratory distress. Patient denies any abdominal pain L changes flank pain. I agree with patient's physical exam findings as documented. Patient's EKG showed no signs of ischemia. Patient's lab evaluation shows metabolic acidosis, but normal white count as well as a stable H&H. Patient with worsening acute on chronic renal insufficiency. Likely due to decreased fluid intake. Patient's chest x-ray shows infiltrate with associated effusion. Likely the cause of his vomiting and hypoxia. Patient was placed on nasal cannula oxygen, lactate is within normal limits patient's remained hemodynamically stable antibiotics and been initiated for pneumonia and patient will be admitted for further evaluation patient's troponin is also elevated patient denies any chest pain there is no EKG changes and may be secondary to worsening renal that is. Case discussed with hospitalist patient will be admitted for further evaluation and management.
--- NOTE | 2017-12-05 16:51 | Electrocardiograph Report ---
[facility] Test Date: 2017-12-05 Pat Name: Daniel Meneses Department: 103 Room: 2NE20 Gender: M [employer]age [employer]sembler: KJ : 1935 Requested By: Rachel Loredo_Jesica Order Number: [id number] Reading MD: Guzman Mckeon Measurements Intervals [place] Rate: 69 P: 57 HI: 197 QRS: 55 QRSD: 106 T: 3 QT: 458 QTc: 477 Interpretive Statements SINUS RHYTHM Electronically Signed On 12-05-2017 16:49:48 EDT by Guzman Mckeon
[2017-12-06 00:39] LABS: Basophils % 0.3 %; Hematocrit 26.9 % (37.5-50.1); Hemoglobin 8.5 g/dL (12.9-16.9); Immature Granulocytes % 0.3 % (0-4); Mean Corpuscular HGB Conc 31.6 g/dL (31.6-35.5); Mean Corpuscular Volume 101.1 fL (83.0-100.0); Mean Platelet Volume 10.7 fL (9.4-12.4); Monocytes # 1.1 K/mcL (0.0-1.3); Monocytes % 15.5 %; Red Blood Count 2.66 M/mcL (4.19-5.50); Red Cell Distribution Width 17.2 % (11.5-14.5); Segmented Neutrophils % 57.9 %
[2017-12-06 00:41] LABS: Eosinophils # 0.4 K/mcL (0.0-0.6); Lymphocytes # 1.5 K/mcL (0.6-4.6); Platelet Count 60 K/mcL (140-400)
[2017-12-06 00:48] LABS: Albumin 2.1 g/dL (3.5-5.7); Albumin/Globulin Ratio 0.6 (1.1-2.2); Calcium 8.2 mg/dL (8.6-10.3); Globulin 3.3 g/dL (2.4-3.5); Magnesium 2.5 mg/dL (1.6-2.6); Potassium 3.8 mEq/L (3.5-5.1); Total Protein 5.4 g/dL (6.4-8.9); Troponin I 0.09 ng/mL (< 0.04)
--- NOTE | 2017-12-06 11:08 | Internal Med Progress Note ---
Date of Encounter: 12/06/17 Time of Encounter: 11:08 - Assessment and plan (1) Cirrhosis Current Visit: Yes Status: Chronic Assessment and plan: PAIGE cirrhosis continue xifaxan continue aldactone hold lasix due to SHAMIKA on CKD patient has not had any BM since arrival here No ascites on exam Resume lactulose at lower dose for goal BM of 2-3 times daily Qualifiers: Hepatic cirrhosis type: unspecified hepatic cirrhosis Ascites presence: without ascites Qualified Code(s): K74.60 - Unspecified cirrhosis of liver (2) Hypokalemia Current Visit: Yes Status: Resolved Assessment and plan: resolved, K this a.m 3.8, continue to monitor (3) Hypoxia Current Visit: Yes Status: Resolved Assessment and plan: Resolvd Now on room air, laying flat in no form of distress He does have moderate R pleural effusion on CT, will observe for now (4) Pleural effusion Current Visit: Yes Status: Acute Assessment and plan: moderate R pleural effusion, possibly due to cirrhosis Continue diuretics INR 1.4, therapeutic thoracentensis non-emergently or if symptomatic (5) Elevated troponin Current Visit: Yes Status: Acute Assessment and plan: Likely type II. Will trend (6) Renal azotemia Current Visit: Yes Status: Acute Assessment and plan: Continue to monitor (7) Hyperchloremic metabolic acidosis Current Visit: Yes Status: Acute Assessment and plan: Due to GI loss Lactate WNL Improving with resolution of diarrhea Continue to monitor (8) Dementia Current Visit: Yes Status: Chronic Assessment and plan: continue home meds oriented to self only at baseline Qualifiers: Dementia type: Alzheimer's disease Dementia behavioral disturbance: without behavioral disturbance Qualified Code(s): G30.8 - Other Alzheimer's disease; F02.80 - Dementia in other diseases classified elsewhere without behavioral disturbance - Time Spent With Patient Total time spent is greater than 50% in coordination of care (as documented) at patient's floor/unit and/or counseling patient: - Subjective Interval history: Seen and evaluated at bedside with his son Pleasant, oriented to self only - Constitutional Vitals: Temp Pulse Resp BP Pulse Ox 97.5 F L 79 15 104/55 93 12/06/17 06:16 12/06/17 06:47 12/06/17 06:47 12/06/17 06:47 12/06/17 06:47 General appearance: Present: A&O X 1, pleasant, no acute distress - Head Head exam: Present: atraumatic, normocephalic - Eye Eye exam: Present: PERRL, conjuntiva pink, sclera anicteric Pupils: Present: PERRL - Neck Neck exam general surgery: Present: supple, trachea midline. Absent: lymphadenopathy - Respiratory Respiratory exam: Present: CTAB. Absent: accessory muscle use, rales, rhonchi, wheezes - Cardiovascular Cardiovascular exam: Present: RRR, +S1, +S2. Absent: diastolic murmur, gallop, rubs, systolic murmur - GI/Abdominal GI/Abdominal exam: Present: normal bowel sounds, soft, no peritoneal signs. Absent: distended, tenderness - Extremities Exam Extremities exam: Present: warm, radial pulses palpable and symmetrical. Absent : calf tenderness, cyanotic, pedal edema - Neurological Exam Neurological exam: Present: alert, CN II-XII intact, no focal deficits. Absent : oriented X3, pronater drift, facial droop, speech deficit - Skin Skin exam: Present: dry, intact Internal Medicine: Result - Labs CBC & Chem 7: 12/06/17 00:09 12/06/17 00:09 Labs: Short CBC 12/06/17 Range/Units 00:09 WBC 6.9 (4.3-11.1) K/mcL Hgb 8.5 L (12.9-16.9) g/dL Hct 26.9 L (37.5-50.1) % Plt Count 60 L (140-400) K/mcL Neutrophils # 4.0 (1.6-8.9) K/mcL BMP 12/06/17 00:09 Sodium 138 Potassium 3.8 D Chloride 114 H Carbon Dioxide 18 L BUN 20 Creatinine 2.29 H Glucose 95 Calcium 8.2 L Cardiac Enzymes 12/05/17 12/06/17 Range/Units 18:10 00:09 Troponin I 0.10 H* 0.09 H* (< 0.04) ng/mL Liver Function 12/06/17 Range/Units 00:09 Total Bilirubin 1.0 (0.3-1.0) mg/dL AST 30 (13-39) Units/L ALT 22 (7-52) Units/L Alkaline Phosphatase 167 H (34-104) Units/L Albumin 2.1 L (3.5-5.7) g/dL - ABG Interpretation ABG results: PT/INR, D-dimer PT 15.5 Seconds (9.4-12.1) H 12/05/17 13:53 - Impressions Impressions Chest CT 12/05/17 15:38 IMPRESSION: There is a large right pleural effusion. There is near complete collapse of the right lower lobe, with partial collapse of the right middle and right upper lobes. The airspace disease adjacent to the pleural effusion appears to be primarily atelectatic rather than pneumonic. Having said that, the degree of airspace collapse could mask a component of pneumonia. D/ / Sedrick Mares MD / Sedrick Mares MD Interpreting Provider: Sedrick Mares MD Consult Discharge Plan - Plan Referrals: Ki Lewis MD [Primary Care Provider] -
[2017-12-06] MEDS: Spironolactone 25 MG TABLET PO SCH (11:26)
[2017-12-06] MEDS: Lactobacillus 1 EACH CAP.SPRINK PO SCH (11:27)
[2017-12-06] MEDS: Cyanocobalamin (B-12) 1,000 MCG TABLET PO SCH (11:29)
[2017-12-06] MEDS: Lactulose Oral Soln 20 GM/30 ML UDC PO SCH ×2 (19:16→20:26)
[2017-12-07 03:37] LABS: Basophils % 0.3 %; Hematocrit 25.5 % (37.5-50.1); Mean Corpuscular Volume 98.8 fL (83.0-100.0); Red Blood Count 2.58 M/mcL (4.19-5.50)
[2017-12-07 03:39] LABS: Eosinophils # 0.3 K/mcL (0.0-0.6); Eosinophils % 3.8 %; Hemoglobin 8.2 g/dL (12.9-16.9); Immature Granulocytes % 0.8 % (0-4); Immature Platelets 1.9 % (1.1-6.1); Lymphocytes # 1.8 K/mcL (0.6-4.6); Lymphocytes % 24.3 %; Mean Corpuscular HGB Conc 32.2 g/dL (31.6-35.5); Mean Corpuscular Hemoglobin 31.8 pg (28.0-33.3); Mean Platelet Volume 10.4 fL (9.4-12.4); Monocytes # 1.2 K/mcL (0.0-1.3); Monocytes % 15.6 %; Red Cell Distribution Width 17.2 % (11.5-14.5); Segmented Neutrophils % 55.2 %
[2017-12-07 03:41] LABS: Neutrophils # 4.1 K/mcL (1.6-8.9); Platelet Count 81 K/mcL (140-400)
[2017-12-07 03:58] LABS: Calcium 8.1 mg/dL (8.6-10.3); Potassium 4.5 mEq/L (3.5-5.1)
[2017-12-07] MEDS ORDERED: 0.9 % Sodium Chloride 500 ML IVC ONE ×2 (07:57→12:48)
[2017-12-07] MEDS: Lactulose Oral Soln 20 GM/30 ML UDC PO SCH ×3 (10:03→20:22)
--- NOTE | 2017-12-07 12:50 | Internal Med Progress Note ---
Date of Encounter: 12/07/17 Time of Encounter: 12:50 - Assessment and plan (1) Acute kidney injury Current Visit: Yes Status: Acute Assessment and plan: Likely pre-renal, due to diarrhea, GI loss, poor oral intake with concomittant use of diuretics Diuretcs held Obtain Renal USS IVF boluses today Continue to monitor Avoid nephrotoxins (2) Cirrhosis Current Visit: Yes Status: Chronic Assessment and plan: PAIGE cirrhosis continue xifaxan hold aldactone hold lasix due to SHAMIKA on CKD No ascites on exam Ammonia is 40 Continue lactulose at lower dose for goal BM of 2-3 times daily Qualifiers: Hepatic cirrhosis type: unspecified hepatic cirrhosis Ascites presence: without ascites Qualified Code(s): K74.60 - Unspecified cirrhosis of liver (3) Hypokalemia Current Visit: Yes Status: Resolved Assessment and plan: resolved, K this a.m 4.5, continue to monitor (4) Hypoxia Current Visit: Yes Status: Resolved Assessment and plan: Resolved Now on room air, laying flat in no form of distress He does have moderate R pleural effusion on CT, will observe for now For IR guided drainage when patient is more stable (5) Pleural effusion Current Visit: Yes Status: Acute Assessment and plan: moderate R pleural effusion, possibly due to cirrhosis Continue diuretics INR 1.4, therapeutic thoracentensis non-emergently or if symptomatic (6) Elevated troponin Current Visit: Yes Status: Acute Assessment and plan: Likely type II. Trop 0.10-0.10-0.09 Will obtain ECHO-ECHO from 07/2017 showed preserved EF with MV prolapse moderate no chest pain (7) Renal azotemia Current Visit: Yes Status: Acute Assessment and plan: See SHAMIKA (8) Hyperchloremic metabolic acidosis Current Visit: Yes Status: Acute Assessment and plan: Due to GI loss Lactate WNL Improving with resolution of diarrhea Continue to monitor (9) Dementia Current Visit: Yes Status: Chronic Assessment and plan: continue home meds oriented to self only at baseline Qualifiers: Dementia type: Alzheimer's disease Dementia behavioral disturbance: without behavioral disturbance Qualified Code(s): G30.8 - Other Alzheimer's disease; F02.80 - Dementia in other diseases classified elsewhere without behavioral disturbance (10) Lumbar vertebral fracture Current Visit: Yes Status: Acute Assessment and plan: Likely acute Family complained of back pain for a week No witnessed or known hx of fall Continue tylenol, tramadol prn Will need therapy Consult spine surgery Qualifiers: Encounter type: initial encounter Lumbar vertebra fracture level: L4 Fracture type: closed Fracture morphology: other fracture Qualified Code(s) : S32.048A - Other fracture of fourth lumbar vertebra, initial encounter for closed fracture - Time Spent With Patient Total time spent is greater than 50% in coordination of care (as documented) at patient's floor/unit and/or counseling patient: - Subjective Interval history: Seen and evaluated at bedside with his son Pleasant, oriented to self only Family members at the bedside reported yesterday evening that patient had been complaining of low back pain, Lumbar spine Xray done showed L4 fracture with less than 20% of loss of evrtebral body height This mrn, the patient is lethargic He is awake and says a few word but looked very tired and exhausted He had a fever of 100.4, (was on gisela hugger overnight) His Cr is also slightly more elevated We will check a STAT UA, hold spironolactone, give 1L IVF in 2 divided boluses and consult nephrology We will consult spine surgery for new L4 fracture, its unlikely that patient will benefit from surgery, there is no neurologic deficits - Constitutional Vitals: Temp Pulse Resp BP Pulse Ox 98.3 F 93 18 113/51 94 12/07/17 12:10 12/07/17 11:42 12/07/17 11:42 12/07/17 11:42 12/07/17 11:42 General appearance: Present: A&O X 1 (lethargic), pleasant, no acute distress - Head Head exam: Present: atraumatic, normocephalic - Eye Eye exam: Present: PERRL, conjuntiva pink, sclera anicteric Pupils: Present: PERRL - Neck Neck exam general surgery: Present: supple, trachea midline. Absent: lymphadenopathy - Respiratory Respiratory exam: Present: CTAB (anterior asucultation). Absent: accessory muscle use, rales, rhonchi, wheezes - Cardiovascular Cardiovascular exam: Present: RRR, +S1, +S2. Absent: diastolic murmur, gallop, rubs, systolic murmur - GI/Abdominal GI/Abdominal exam: Present: normal bowel sounds, soft, no peritoneal signs. Absent: distended, tenderness - Extremities Exam Extremities exam: Present: warm, radial pulses palpable and symmetrical. Absent : calf tenderness, cyanotic, pedal edema - Neurological Exam Neurological exam: Present: alert, CN II-XII intact, no focal deficits. Absent : oriented X3, pronater drift, facial droop, speech deficit - Skin Skin exam: Present: dry, intact Internal Medicine: Result - Labs CBC & Chem 7: 12/07/17 02:28 12/07/17 02:28 Labs: Short CBC 12/07/17 Range/Units 02:28 WBC 7.5 (4.3-11.1) K/mcL Hgb 8.2 L (12.9-16.9) g/dL Hct 25.5 L (37.5-50.1) % Plt Count 81 L (140-400) K/mcL Neutrophils # 4.1 (1.6-8.9) K/mcL BMP 12/07/17 02:28 Sodium 139 Potassium 4.5 Chloride 115 H Carbon Dioxide 18 L BUN 23 Creatinine 2.46 H Glucose 74 Calcium 8.1 L - ABG Interpretation ABG results: PT/INR, D-dimer PT 15.5 Seconds (9.4-12.1) H 12/05/17 13:53 - Impressions Impressions Lumbar Spine X-Ray 12/06/17 18:26 IMPRESSION: 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 L4 superior endplate fracture, new since 09/05/2017. There is less than 20% loss of vertebral body height. D/ / Edd Whitley MD / Edd Whitley MD Interpreting Provider: Edd Whitley MD Consult Discharge Plan - Plan Referrals: Ki Lewis MD [Primary Care Provider] -
[2017-12-07] MEDS: Lactobacillus 1 EACH CAP.SPRINK PO SCH (12:54)
[2017-12-07] MEDS: Spironolactone 25 MG TABLET PO SCH (12:54)
[2017-12-07] MEDS: Cyanocobalamin (B-12) 1,000 MCG TABLET PO SCH (12:55)
[2017-12-07] MEDS ORDERED: Acetaminophen 325 MG TABLET PO PRN (14:15)
[2017-12-07 14:18] LABS: Bilirubin,Urine Negative (Negative); Blood,Urine Small (Negative); Color,Urine Yellow (Yellow); Glucose,Urine (UA) Normal (Normal); Ketones,Urine Trace mg/dL (Negative); Leukocyte Esterase,Urine Trace (Negative); Nitrite,Urine Negative (Negative); PH,Urine 5.5 pH Units (5.0-8.0); Protein,Urine Trace mg/dL (Neg-Trace); Specific Gravity,Urine 1.021 (1.010-1.025); Urobilinogen,Urine Normal (Normal)
[2017-12-07 14:19] LABS: RBC,Urine 0-3 per hpf (0-3); Squamous Epithelial Cell,Urine Many per lpf (None-Few); WBC,Urine 0-3 per hpf (0-3)
[2017-12-07 14:20] LABS: Clarity,Urine Clear (Clear)
[2017-12-07 14:29] LABS: Hyaline Casts,Urine Few per lpf (None-Few)
[2017-12-07 14:30] LABS: Bacteria,Urine Few per hpf (None-Few)
[2017-12-07] MEDS ORDERED: traMADol 50 MG TABLET PO PRN (18:00)
[2017-12-08] MEDS ORDERED: Melatonin 3 MG TABLET PO PRN (02:03)
[2017-12-08] MEDS ORDERED: *HR* LORazepam 0.5 MG TABLET PO PRN (02:03)
[2017-12-08 08:56] LABS: Basophils % 0.4 %; Eosinophils # 0.4 K/mcL (0.0-0.6); Eosinophils % 4.8 %; Hematocrit 26.7 % (37.5-50.1); Hemoglobin 8.6 g/dL (12.9-16.9); Immature Granulocytes % 0.3 % (0-4); Immature Platelets 1.7 % (1.1-6.1); Lymphocytes # 1.6 K/mcL (0.6-4.6); Lymphocytes % 20.4 %; Mean Corpuscular HGB Conc 32.2 g/dL (31.6-35.5); Mean Corpuscular Hemoglobin 31.4 pg (28.0-33.3); Mean Corpuscular Volume 97.4 fL (83.0-100.0); Mean Platelet Volume 9.4 fL (9.4-12.4); Monocytes # 1.2 K/mcL (0.0-1.3); Neutrophils # 4.4 K/mcL (1.6-8.9); Platelet Count 83 K/mcL (140-400); Red Blood Count 2.74 M/mcL (4.19-5.50); Red Cell Distribution Width 17.6 % (11.5-14.5); Segmented Neutrophils % 58.1 %
[2017-12-08 09:08] LABS: Calcium 8.5 mg/dL (8.6-10.3); Potassium 3.9 mEq/L (3.5-5.1)
[2017-12-08] MEDS: Lactobacillus 1 EACH CAP.SPRINK PO SCH ×2 (11:16→12:48)
--- NOTE | 2017-12-08 11:26 | Internal Med Progress Note ---
Date of Encounter: 12/08/17 Time of Encounter: 11:26 - Assessment and plan (1) Acute kidney injury Current Visit: Yes Status: Acute Assessment and plan: Likely pre-renal, due to diarrhea, GI loss, poor oral intake with concomittant use of diuretics Diuretcs held Renal USS unremarkable Renal function not improving despite IVF Nephrology consulted Will give albumin X 3 doses Continue to monitor Avoid nephrotoxins (2) Cirrhosis Current Visit: Yes Status: Chronic Assessment and plan: PAIGE cirrhosis continue xifaxan hold aldactone hold lasix due to SHAMIKA on CKD No ascites on exam Ammonia is 40 Continue lactulose at lower dose for goal BM of 2-3 times daily Qualifiers: Hepatic cirrhosis type: unspecified hepatic cirrhosis Ascites presence: without ascites Qualified Code(s): K74.60 - Unspecified cirrhosis of liver (3) Hypokalemia Current Visit: Yes Status: Resolved Assessment and plan: resolved, K this a.m 3.9, continue to monitor (4) Hypoxia Current Visit: Yes Status: Resolved Assessment and plan: Resolved Now on room air, laying flat in no form of distress He does have moderate R pleural effusion on CT, will observe for now For IR guided drainage when patient is more stable (5) Pleural effusion Current Visit: Yes Status: Acute Assessment and plan: moderate R pleural effusion, possibly due to cirrhosis Continue diuretics INR 1.4, therapeutic thoracentensis non-emergently or if symptomatic (6) Elevated troponin Current Visit: Yes Status: Acute Assessment and plan: Likely type II. Trop 0.10-0.10-0.09 ECHO from 07/2017 showed preserved EF with MV prolapse moderate no chest pain (7) Renal azotemia Current Visit: Yes Status: Acute Assessment and plan: See SHAMIKA (8) Hyperchloremic metabolic acidosis Current Visit: Yes Status: Acute Assessment and plan: Due to GI loss Lactate WNL Improving with resolution of diarrhea Continue to monitor (9) Dementia Current Visit: Yes Status: Chronic Assessment and plan: continue home meds oriented to self only at baseline Qualifiers: Dementia type: Alzheimer's disease Alzheimer's disease onset: unspecified onset Dementia behavioral disturbance: without behavioral disturbance Qualified Code(s): G30.9 - Alzheimer's disease, unspecified; F02.80 - Dementia in other diseases classified elsewhere without behavioral disturbance (10) Lumbar vertebral fracture Current Visit: Yes Status: Acute Assessment and plan: Likely acute Family complained of back pain for a week No witnessed or known hx of fall Continue tylenol, tramadol prn Will need therapy Consult spine surgery Qualifiers: Encounter type: initial encounter Lumbar vertebra fracture level: L4 Fracture type: closed Fracture morphology: other fracture Qualified Code(s) : S32.048A - Other fracture of fourth lumbar vertebra, initial encounter for closed fracture - Time Spent With Patient Total time spent is greater than 50% in coordination of care (as documented) at patient's floor/unit and/or counseling patient: - Subjective Interval history: Seen and evaluated at bedside with his son He had a fever of 100.4 12/07, (was on gisela hugger overnight) His acute kidney injury is not improving despite bolus IV fluids, Work up yesterday including urine analysis was negative for any source of infection. He has not had a recurrence of the fever. Nephrology was consulted 12/07 for acute kidney injury management. We will give albumin in addition to recommendations by nephrology. I have also spoken to who will see him for the spine fracture - Constitutional Vitals: Temp Pulse Resp BP Pulse Ox 97.2 F L 82 18 116/62 95 12/08/17 05:00 12/08/17 07:30 12/08/17 07:30 12/08/17 07:30 12/08/17 07:30 General appearance: Present: A&O X 1 (lethargic), pleasant, no acute distress - Head Head exam: Present: atraumatic, normocephalic - Eye Eye exam: Present: PERRL, conjuntiva pink, sclera anicteric Pupils: Present: PERRL - Neck Neck exam general surgery: Present: supple, trachea midline. Absent: lymphadenopathy - Respiratory Respiratory exam: Present: CTAB. Absent: accessory muscle use, rales, rhonchi, wheezes - Cardiovascular Cardiovascular exam: Present: RRR, +S1, +S2. Absent: diastolic murmur, gallop, rubs, systolic murmur - GI/Abdominal GI/Abdominal exam: Present: normal bowel sounds, soft, no peritoneal signs. Absent: distended, tenderness - Extremities Exam Extremities exam: Present: warm, radial pulses palpable and symmetrical. Absent : calf tenderness, cyanotic, pedal edema - Neurological Exam Neurological exam: Present: alert, CN II-XII intact, no focal deficits. Absent : oriented X3, pronater drift, facial droop, speech deficit - Skin Skin exam: Present: dry, intact Internal Medicine: Result - Labs CBC & Chem 7: 12/08/17 08:40 12/08/17 08:40 Labs: Short CBC 12/08/17 Range/Units 08:40 WBC 7.6 (4.3-11.1) K/mcL Hgb 8.6 L (12.9-16.9) g/dL Hct 26.7 L (37.5-50.1) % Plt Count 83 L (140-400) K/mcL Neutrophils # 4.4 (1.6-8.9) K/mcL BMP 12/08/17 08:40 Sodium 141 Potassium 3.9 Chloride 116 H Carbon Dioxide 17 L BUN 31 H Creatinine 2.49 H Glucose 112 H Calcium 8.5 L Urine 12/07/17 Range/Units 13:30 Urine Color Yellow (Yellow) Urine Clarity Clear (Clear) Urine pH 5.5 (5.0-8.0) pH Units Ur Specific [place] 1.021 (1.010-1.025) Urine Protein Trace (Neg-Trace) mg/dL Urine Glucose (UA) Normal (Normal) mg/dL - ABG Interpretation ABG results: PT/INR, D-dimer PT 15.5 Seconds (9.4-12.1) H 12/05/17 13:53 - Impressions Impressions Retroperitoneum Ultrasound 12/07/17 15:00 IMPRESSION: No acute abnormality of the kidneys or urinary bladder. D/ / 12/07/2017 16:15:48 Lan Fields MD / [email or web address] Interpreting Provider: Lan Fields MD - VTE Documentation of Mechanical Device: Intermittent pneumatic compression device Consult Discharge Plan - Plan Referrals: Ki Lewis MD [Primary Care Provider] -
--- NOTE | 2017-12-08 12:03 | Nephrology Progress Note ---
Date of Encounter: 12/08/17 Time of Encounter: 11:30 - Assessment and Plan (1) Acute kidney injury Current Visit: Yes Status: Acute SHAMIKA in setting of volume depletion, decreased oral intake, chronic GI losses in setting of Lactulose/cirrhosis, diuretic and Vancomycin superimposed on underlying CKD. Baseline creat 1.4-1.7. Will start IV hydration 0.9NS at 100cc/ hour. Terrell catheter placement. Noted dietary consult/swallow eval placed. Avoid nephrotoxins, accurate I&O. Will continue to monitor. Subjective Interval history: Mr. Meneses is a 82 year old male who presented to [facility] on December 05 from nursing facility. SNF physician concerned blood work showed hyperchloremic metabolic acidosis. K 3.0. today 3.9. Creat 2.18, increasing to 2.49 today. Prior labs indicate underlying CKD with baseline creat 1.4-1.7. Urine trace protein, small blood, trace leuks. CXR-moderate right pleural effusion with atalectasis versus pneumonia. Was given one time dose Vancomycin and cefapime. Also noted on Lasix 40mg daily on nursing facility MAR. History of hepatic encephalopathy and dementia. Consult for worsening azotemia. At consult a daughter in law is present. Patient alert, incomprehensible words. HPI obtained from prior medical notes. Other PMH-hepatic cirrhosis, anemia, pancytopenia, and known hyperkalemia on lactulose. Apparently for past several days prior to admission stated only minimal oral intake. DIL present today confirms decreased intake for past month and rolling food in mouth without swallowing. 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 Currently no IV fluids running. Patient had to be straight cathed for urine of 200cc. Oral cavity dry, no sores noted. Objective - Vital Signs Vital signs: Vital Signs Temp Pulse Resp BP Pulse Ox 12/08/17 07:30 82 18 116/62 95 12/08/17 05:00 97.2 F L 73 16 113/46 90 12/07/17 21:00 97.3 F L 73 16 119/65 91 12/07/17 20:31 96 12/07/17 15:47 97.9 F 81 18 121/55 95 12/07/17 12:10 98.3 F 12/07/17 11:42 100.4 F H 93 18 113/51 94 Intake and Output 06/15/18 06/16/18 06/16/18 23:59 07:59 15:59 Intake Total 120 / 120 120 / 120 0 / 0 Output Total 200 / 200 Balance 120 / 120 -80 / -80 0 / 0 Intake: Oral 120 / 120 120 / 120 0 / 0 Output: Urine 200 / 200 Other: Meal Breakfast Percent of Meal Consumed 0% Stool Size Large Small Stool Consistency loose loose Stool Color Brown Brown # Urine Diapers 1 1 # Bowel Movement Diapers 1 1 Weight 81.4 kg Patient Weight 12/08/17 23:59 Weight 81.4 kg - General Appearance General appearance: Present: well-developed, well-nourished, appears started age , chronically ill EENT: Present: mucous membranes dry Neck: Present: no JVD Respiratory: Present: clear Cardiology: Present: no edema, regular rate, regular rhythm Gastrointestinal: Present: hypoactive bowel sounds, no tenderness Integumentary: Present: warm and dry Psychiatric: Present: cooperative - Lab 12/08/17 08:40 12/08/17 08:40 Most recent lab results Calcium 8.5 mg/dL (8.6-10.3) L 12/08/17 08:40 Magnesium 2.5 mg/dL (1.6-2.6) 12/06/17 00:09 - VTE Documentation of Mechanical Device: Intermittent pneumatic compression device Consult Discharge Plan - Plan Referrals: Ki Lewis MD [Primary Care Provider] -
[2017-12-08] MEDS: Lactulose Oral Soln 20 GM/30 ML UDC PO SCH ×3 (12:46→20:18)
[2017-12-08] MEDS: Cyanocobalamin (B-12) 1,000 MCG TABLET PO SCH (12:48)
[2017-12-08] MEDS: 0.9 % Sodium Chloride 1,000 ML IVC SCH (13:50)
[2017-12-08] MEDS: Albumin 25% 25gram/100mL 25 GM/100 ML IV.SOLN IVPB SCH ×2 (15:58→23:57)
--- NOTE | 2017-12-08 19:00 | Pain Management Consultation ---
Date of Encounter: 12/08/17 Time of Encounter: 18:57 Assessment and Plan (1) Compression fracture of L4 lumbar vertebra Current Visit: Yes Status: Acute Lumbar XR reviewed. Apon evaluation of the situation, i do not believe at this time that it is in the patient's best interest to move forward with vertebral augmentation. The level of concern, while new, is less than 20% and is not clearly a source of pain. 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 I recommend conservative care, to include pain control with non-acetaminophen containing opioids at lower than expected doses due to known delerium and known impaired metabolism. Qualifiers: Encounter type: initial encounter Fracture type: closed Qualified Code(s) : S32.040A - Wedge compression fracture of fourth lumbar vertebra, initial encounter for closed fracture (2) Confusion Current Visit: Yes Status: Acute The patient is not at baseline per reports via the nurses from the family. I am concerned that repetitive phrasing might indicated an acute intracranial process. While most likely metabolic encephalopathy may be the cause, CVA - possible temporal lobe- cannot be ultimately excluded. History of Present Illness Chief complaint: back pain HPI: Mr. Meneses is a 82 year old male Admitted for back pain and nausea. The patient is no able to provide history due to the presence of acute delerium upon baseline dementia. The patient cannot be interviewed. The patient repeats the phrase, " I dont think so." Past Med Surg Social Fam HX - Past Medical History Medical history: cirrhosis, dementia, liver disease, other Additional medical history: Hernia Psychiatric history: no psych history - Past Surgical History Surgical History: other - Social History Smoking Status: Never smoker Smokeless Tobacco Status: No Alcohol use: none Drug use: none - Family History Mother Living Status: Age at : 63 Hx Family Cardiac Disorders: Yes Hx Family Respiratory Disorders: No Hx Family GI Disorders: Yes Hx Family Endocrine Disorder: Yes Hx Family Medical Disorders: Yes Medications and Allergies Lactobacillus Acidophilus/Pect [Acidophilus-Pectin Capsule] 1 each PO DAILY 08/09 [History] Cyanocobalamin (Vitamin B-12) [Vitamin B12] 1,000 mcg PO DAILY 04/27/15 [History ] Furosemide [Lasix] 40 mg PO BID 07/29/15 [History] Donepezil HCl [Aricept] 10 mg PO HS 07/27/17 [History] Rifaximin [Xifaxan] 550 mg PO BID #60 tablet 08/03/17 [Rx] Escitalopram Oxalate 5 mg PO DAILY 09/05/17 [History] Lactulose 45 gm PO QID 09/05/17 [History] Gabapentin [Neurontin] 300 mg PO BID #10 capsule 09/10/17 [Rx] Tramadol HCl [Ultram] 50 mg PO TID PRN 5 Days #15 tab 09/10/17 [Rx] Pantoprazole Sodium [Protonix] 40 mg PO DAILY 12/05/17 [History] 3 Allergy/AdvReac Type Severity Reaction Status Date / Time acetaminophen [From Percocet] Allergy Nausea Verified 09/05/17 13:59 ciprofloxacin [From Cipro] AdvReac See Verified 09/05/17 13:59 Comments metronidazole [From Flagyl] AdvReac Dizziness Verified 09/05/17 13:59 Oxycodone [From Percocet] AdvReac Nausea Verified 09/05/17 13:59 Review of Systems ROS unobtainable: due to mental status Physical Exam Initial Vital Signs Temp Pulse Resp BP Pulse Ox 97.4 F L 70 18 122/86 92 12/05/17 13:30 12/05/17 13:30 12/05/17 13:30 12/05/17 13:30 12/05/17 13:30 - General physical appearance General physical appearance: other (Not oriented), no distress, no pain - Eyes Eye exam: other (Anicteric) - Neck trachea midline - Respiratory normal expansion, normal respiratory effort - Cardiovascular Cardiovascular exam: Present: RRR - Abdomen Abdomen: soft - Neurologic confused, disoriented - Musculoskeletal Musculoskeletal: kyphosis - Psychiatric Psychiatric: other (not oriented to person, place or time. ) Results - Labs 12/08/17 08:40 12/08/17 08:40 Abnormal lab results RBC 2.74 M/mcL (4.19-5.50) L 12/08/17 08:40 Hgb 8.6 g/dL (12.9-16.9) L 12/08/17 08:40 Hct 26.7 % (37.5-50.1) L 12/08/17 08:40 RDW 17.6 % (11.5-14.5) H 12/08/17 08:40 Plt Count 83 K/mcL (140-400) L 12/08/17 08:40 PT 15.5 Seconds (9.4-12.1) H 12/05/17 13:53 VBG pCO2 30 mmHg (41-51) L 12/05/17 14:09 VBG pO2 199 mmHg (25-50) H 12/05/17 14:09 VBG HCO3 18 mEq/L (21-27) L 12/05/17 14:09 Chloride 116 mEq/L (98-107) H 12/08/17 08:40 Carbon Dioxide 17 mEq/L (23-29) L 12/08/17 08:40 BUN 31 mg/dL (8-23) H 12/08/17 08:40 Creatinine 2.49 mg/dL (0.70-1.30) H 12/08/17 08:40 Est GFR ( Amer) 30 (> 60) L 12/08/17 08:40 Est GFR (Non-Af Amer) 25 (> 60) L 12/08/17 08:40 Glucose 112 mg/dL (70-105) H 12/08/17 08:40 Calcium 8.5 mg/dL (8.6-10.3) L 12/08/17 08:40 Direct Bilirubin 0.4 mg/dL (0.0-0.2) H 12/05/17 13:53 Alkaline Phosphatase 167 Units/L (34-104) H 12/06/17 00:09 Troponin I 0.09 ng/mL (< 0.04) H* 12/06/17 00:09 Serum Total Protein 5.4 g/dL (6.4-8.9) L 12/06/17 00:09 Albumin 2.1 g/dL (3.5-5.7) L 12/06/17 00:09 Albumin/Globulin Ratio 0.6 (1.1-2.2) L 12/06/17 00:09 Urine Ketones Trace mg/dL (Negative) H 12/07/17 13:30 Urine Blood Small (Negative) H 12/07/17 13:30 Ur Leukocyte Esterase Trace (Negative) H 12/07/17 13:30 Ur Squamous Epith Cells Many per lpf (None-Few) H 12/07/17 13:30 Ur Culture Indicated? NO. (NO) A 12/07/17 13:30 Diabetes panel 12/08/17 Range/Units 08:40 Sodium 141 (136-145) mEq/L Potassium 3.9 (3.5-5.1) mEq/L Chloride 116 H (98-107) mEq/L Carbon Dioxide 17 L (23-29) mEq/L BUN 31 H (8-23) mg/dL Creatinine 2.49 H (0.70-1.30) mg/dL Glucose 112 H (70-105) mg/dL Calcium 8.5 L (8.6-10.3) mg/dL Calcium panel 12/08/17 Range/Units 08:40 Calcium 8.5 L (8.6-10.3) mg/dL Pituitary panel 12/08/17 Range/Units 08:40 Sodium 141 (136-145) mEq/L Potassium 3.9 (3.5-5.1) mEq/L Chloride 116 H (98-107) mEq/L Carbon Dioxide 17 L (23-29) mEq/L BUN 31 H (8-23) mg/dL Creatinine 2.49 H (0.70-1.30) mg/dL Glucose 112 H (70-105) mg/dL Calcium 8.5 L (8.6-10.3) mg/dL Adrenal panel 12/08/17 Range/Units 08:40 Sodium 141 (136-145) mEq/L Potassium 3.9 (3.5-5.1) mEq/L Chloride 116 H (98-107) mEq/L Carbon Dioxide 17 L (23-29) mEq/L BUN 31 H (8-23) mg/dL Creatinine 2.49 H (0.70-1.30) mg/dL Glucose 112 H (70-105) mg/dL Calcium 8.5 L (8.6-10.3) mg/dL All other labs normal. 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 L4 superior endplate fracture, new since 09/05/2017. There is less than 20% loss of vertebral body height. D/ / Edd Whitley MD / Edd Whitley MD Interpreting Provider: Edd Whitley MD - VTE Documentation of Mechanical Device: Intermittent pneumatic compression device Consult Discharge Plan - Plan Referrals: Ki Lewis MD [Primary Care Provider] -
[2017-12-09] MEDS: 0.9 % Sodium Chloride 1,000 ML IVC SCH ×3 (02:09→22:08)
[2017-12-09 06:48] LABS: Basophils % 0.2 %
[2017-12-09 06:50] LABS: Eosinophils # 0.4 K/mcL (0.0-0.6); Eosinophils % 6.3 %; Hematocrit 22.9 % (37.5-50.1); Hemoglobin 7.6 g/dL (12.9-16.9); Immature Granulocytes % 0.4 % (0-4); Immature Platelets 2.1 % (1.1-6.1); Lymphocytes # 1.3 K/mcL (0.6-4.6); Lymphocytes % 23.6 %; Mean Corpuscular HGB Conc 33.2 g/dL (31.6-35.5); Mean Corpuscular Hemoglobin 32.9 pg (28.0-33.3); Mean Corpuscular Volume 99.1 fL (83.0-100.0); Mean Platelet Volume 10.1 fL (9.4-12.4); Monocytes # 1.1 K/mcL (0.0-1.3); Monocytes % 19.7 %; Neutrophils # 2.8 K/mcL (1.6-8.9); Red Blood Count 2.31 M/mcL (4.19-5.50); Red Cell Distribution Width 17.4 % (11.5-14.5); Segmented Neutrophils % 49.8 %
[2017-12-09 06:51] LABS: Platelet Count 57 K/mcL (140-400)
[2017-12-09 07:01] LABS: Calcium 8.3 mg/dL (8.6-10.3); Potassium 4.3 mEq/L (3.5-5.1)
[2017-12-09] MEDS: Albumin 25% 25gram/100mL 25 GM/100 ML IV.SOLN IVPB SCH (07:35)
[2017-12-09] MEDS: Lactulose Oral Soln 20 GM/30 ML UDC PO SCH ×3 (07:41→21:42)
[2017-12-09] MEDS: Cyanocobalamin (B-12) 1,000 MCG TABLET PO SCH (07:42)
--- NOTE | 2017-12-09 11:09 | Nephrology Progress Note ---
Date of Encounter: 12/09/17 Time of Encounter: 10:50 - Assessment and Plan (1) Acute kidney injury Current Visit: Yes Status: Acute SHAMIKA in setting of volume depletion, decreased oral intake, chronic GI losses in setting of Lactulose/cirrhosis, diuretic and Vancomycin superimposed on underlying CKD. Baseline creat 1.4-1.7. Renal fct improved 2.29. Will continue IV hydration. Terrell catheter placed. Avoid nephrotoxins, accurate I&O. Will continue to monitor. Subjective Interval history: Laying quietly, repetative words. No family in room. Objective - Vital Signs Vital signs: Vital Signs Temp Pulse Resp BP Pulse Ox 12/09/17 07:00 82 19 96/74 12/08/17 22:31 97.6 F 80 18 105/44 93 12/08/17 15:51 97.3 F L 82 18 124/48 93 12/08/17 11:35 79 18 120/57 94 Intake and Output 12/08/17 12/09/17 12/09/17 23:59 07:59 15:59 Intake Total 430 / 430 1100 / 1100 Output Total 125 / 125 310 / 310 Balance 305 / 305 790 / 790 Intake: IV Fluids 250 / 250 1100 / 1100 0.9 % Sodium Chloride 1,000 ML 150 / 150 1000 / 1000 @ 100 mls/hr IVC .Q10H ANG[facility]INE Rx#: [id number] Flexbumin 25 gm In 100 ml @ 60 100 / 100 100 / 100 mls/hr IVPB Q8HR ANGELINE Rx#: [id number] Oral 180 / 180 Output: Urine 100 / 100 135 / 135 Catheter 25 / 25 175 / 175 Other: Meal Dinner Percent of Meal Consumed 0% Stool Size Smear # Bowel Movements 1 Weight 81.2 kg Patient Weight 12/09/17 23:59 Weight 81.2 kg - General Appearance General appearance: Present: well-developed, well-nourished, appears started age EENT: Present: mucous membranes moist Neck: Present: no JVD Respiratory: Present: clear Cardiology: Present: edema, regular rate, regular rhythm Additional Comments: mild Gastrointestinal: Present: normoactive bowel sounds, no tenderness Integumentary: Present: warm and dry Psychiatric: Present: mood/affect appropriate - Lab 12/09/17 05:56 12/09/17 05:56 Most recent lab results Calcium 8.3 mg/dL (8.6-10.3) L 12/09/17 05:56 Magnesium 2.5 mg/dL (1.6-2.6) 12/06/17 00:09 - VTE Documentation of Mechanical Device: Intermittent pneumatic compression device Consult Discharge Plan - Plan Referrals: Ki Lewis MD [Primary Care Provider] -
--- NOTE | 2017-12-09 12:19 | Internal Med Progress Note ---
Date of Encounter: 12/09/17 Time of Encounter: 12:12 - Assessment and plan (1) Acute kidney injury Current Visit: Yes Status: Acute Assessment and plan: Likely pre-renal, due to diarrhea, GI loss, poor oral intake with concomittant use of diuretics Diuretcs held Renal USS unremarkable Renal function slightly improved, with IVF, s/p albumin Continue to monitor Avoid nephrotoxins (2) Cirrhosis Current Visit: Yes Status: Chronic Assessment and plan: PAIGE cirrhosis continue xifaxan hold aldactone hold lasix due to SHAMIKA on CKD No ascites on exam Ammonia is 40 on admission Repeat done today is 33 Continue lactulose at lower dose for goal BM of 2-3 times daily Qualifiers: Hepatic cirrhosis type: unspecified hepatic cirrhosis Ascites presence: without ascites Qualified Code(s): K74.60 - Unspecified cirrhosis of liver (3) Hypokalemia Current Visit: Yes Status: Resolved Assessment and plan: resolved, (4) Hypoxia Current Visit: Yes Status: Resolved Assessment and plan: Resolved Now on room air, laying flat in no form of distress He does have moderate R pleural effusion on CT, will observe for now For IR guided drainage when patient is more stable (5) Pleural effusion Current Visit: Yes Status: Acute Assessment and plan: moderate R pleural effusion, possibly due to cirrhosis Continue diuretics INR 1.4 on admission, therapeutic thoracentensis non-emergently or if symptomatic (6) Elevated troponin Current Visit: Yes Status: Acute Assessment and plan: Likely type II. Trop 0.10-0.10-0.09 ECHO from 07/2017 showed preserved EF with MV prolapse moderate no chest pain (7) Renal azotemia Current Visit: Yes Status: Acute Assessment and plan: See SHAMIKA (8) Hyperchloremic metabolic acidosis Current Visit: Yes Status: Acute Assessment and plan: Improving (9) Dementia Current Visit: Yes Status: Chronic Assessment and plan: continue home meds oriented to self only at baseline Qualifiers: Dementia type: Alzheimer's disease Alzheimer's disease onset: unspecified onset Dementia behavioral disturbance: without behavioral disturbance Qualified Code(s): G30.9 - Alzheimer's disease, unspecified; F02.80 - Dementia in other diseases classified elsewhere without behavioral disturbance (10) Lumbar vertebral fracture Current Visit: Yes Status: Acute Assessment and plan: Likely acute Family complained of back pain for a week No witnessed or known hx of fall Continue tylenol, tramadol prn Will need therapy Spine surgery eval noted,recommended head CT-no acute abnormality Qualifiers: Encounter type: initial encounter Lumbar vertebra fracture level: L4 Fracture type: closed Fracture morphology: other fracture Qualified Code(s) : S32.048A - Other fracture of fourth lumbar vertebra, initial encounter for closed fracture - Time Spent With Patient Total time spent is greater than 50% in coordination of care (as documented) at patient's floor/unit and/or counseling patient: - Subjective Interval history: Seen and evaluated at bedside with his son He had a fever of 100.4 12/07, (was on gisela hugger overnight) His acute kidney injury is not improving despite bolus IV fluids, Work up including urine analysis was negative for any source of infection. He has not had a recurrence of the fever. Nephrology was consulted 12/07 for acute kidney injury management. We will give albumin in addition to recommendations by nephrology. On IVF and catherine placed for urine output monitoring He is very agitated this mrn. his po intake is poor Will check amonia level, no BM recorded in 24 hrs - Constitutional Vitals: Temp Pulse Resp BP Pulse Ox 97.6 F 79 20 110/52 93 12/08/17 22:31 12/09/17 11:00 12/09/17 11:00 12/09/17 11:00 12/08/17 22:31 General appearance: Present: A&O X 1 (lethargic), pleasant, no acute distress - Head Head exam: Present: atraumatic, normocephalic - Eye Eye exam: Present: PERRL, conjuntiva pink, sclera anicteric Pupils: Present: PERRL - Neck Neck exam general surgery: Present: supple, trachea midline. Absent: lymphadenopathy - Respiratory Respiratory exam: Present: CTAB. Absent: accessory muscle use, rales, rhonchi, wheezes - Cardiovascular Cardiovascular exam: Present: RRR, +S1, +S2. Absent: diastolic murmur, gallop, rubs, systolic murmur - GI/Abdominal GI/Abdominal exam: Present: normal bowel sounds, soft, no peritoneal signs. Absent: distended, tenderness - Extremities Exam Extremities exam: Present: warm, radial pulses palpable and symmetrical. Absent : calf tenderness, cyanotic, pedal edema - Neurological Exam Neurological exam: Present: alert, CN II-XII intact, no focal deficits. Absent : oriented X3, pronater drift, facial droop, speech deficit - Skin Skin exam: Present: dry, intact Internal Medicine: Result - Labs CBC & Chem 7: 12/09/17 05:56 12/09/17 05:56 Labs: Short CBC 12/09/17 Range/Units 05:56 WBC 5.6 (4.3-11.1) K/mcL Hgb 7.6 L (12.9-16.9) g/dL Hct 22.9 L (37.5-50.1) % Plt Count 57 L (140-400) K/mcL Neutrophils # 2.8 (1.6-8.9) K/mcL BMP 12/09/17 05:56 Sodium 146 H Potassium 4.3 Chloride 121 H Carbon Dioxide 20 L BUN 31 H Creatinine 2.29 H Glucose 95 Calcium 8.3 L - ABG Interpretation ABG results: PT/INR, D-dimer PT 15.5 Seconds (9.4-12.1) H 12/05/17 13:53 - Impressions Impressions Head CT 12/08/17 19:39 IMPRESSION: No acute intracranial abnormality. D/ / Ori Higginbotham MD / Ori Higginbotham MD Interpreting Provider: Ori Higginbotham MD - VTE Documentation of Mechanical Device: Intermittent pneumatic compression device Consult Discharge Plan - Plan Referrals: Ki Lewis MD [Primary Care Provider] -
[2017-12-09] MEDS ORDERED: Haloperidol Lactate 5 MG/ML VIAL IVP ONE (15:47)
[2017-12-09] MEDS: risperiDONE 0.25 MG TABLET PO SCH (21:43)
[2017-12-10 06:18] LABS: Basophils % 0.3 %; Eosinophils # 0.2 K/mcL (0.0-0.6); Hematocrit 24.3 % (37.5-50.1); Hemoglobin 7.8 g/dL (12.9-16.9); Immature Granulocytes % 0.8 % (0-4); Immature Platelets 2.4 % (1.1-6.1); Lymphocytes # 1.3 K/mcL (0.6-4.6); Lymphocytes % 20.8 %; Mean Corpuscular HGB Conc 32.1 g/dL (31.6-35.5); Mean Corpuscular Hemoglobin 32.5 pg (28.0-33.3); Mean Corpuscular Volume 101.3 fL (83.0-100.0); Mean Platelet Volume 10.4 fL (9.4-12.4); Monocytes # 0.9 K/mcL (0.0-1.3); Monocytes % 13.7 %; Red Cell Distribution Width 17.7 % (11.5-14.5); Segmented Neutrophils % 61.4 %
[2017-12-10 06:19] LABS: Neutrophils # 3.9 K/mcL (1.6-8.9); Platelet Count 61 K/mcL (140-400)
[2017-12-10 06:38] LABS: Calcium 8.4 mg/dL (8.6-10.3); Potassium 4.1 mEq/L (3.5-5.1)
[2017-12-10] MEDS ORDERED: Ipratropium/Albuterol Neb 3 ML IH ONE (09:36)
--- NOTE | 2017-12-10 09:38 | Nephrology Progress Note ---
Date of Encounter: 12/10/17 Time of Encounter: 09:05 - Assessment and Plan (1) Acute kidney injury Current Visit: Yes Status: Acute SHAMIKA in setting of volume depletion, decreased oral intake, chronic GI losses in setting of Lactulose/cirrhosis, diuretic and Vancomycin superimposed on underlying CKD. Baseline creat 1.4-1.7. Renal fct improved 2.20. Will continue IV hydration in setting of poor oral intake. Most likely related to dementia and will need exterminator helper solution for nutrition. Terrell catheter placed. Avoid nephrotoxins, accurate I&O. Will continue to monitor. Subjective Interval history: Swallow eval in progress. Not swallowing without repeated prompting and tactile stim. Objective - Vital Signs Vital signs: Vital Signs Temp Pulse Resp BP Pulse Ox 12/10/17 06:40 98.1 F 106 18 103/58 96 12/10/17 04:12 98.7 F 79 17 113/68 95 12/09/17 22:27 94 12/09/17 21:53 99.8 F H 80 16 128/98 94 12/09/17 15:12 97.6 F 77 17 124/70 12/09/17 11:00 79 20 110/52 Intake and Output 12/09/17 12/10/17 12/10/17 23:59 07:59 15:59 Intake Total 1100 / 1100 Output Total 200 / 200 350 / 350 Balance 900 / 900 -350 / -350 Intake: IV Fluids 1000 / 1000 0.9 % Sodium Chloride 1,000 ML 1000 / 1000 @ 100 mls/hr IVC .Q10H [facility] Rx#: [id number] Oral 100 / 100 Output: Catheter 200 / 200 350 / 350 Other: Meal Dinner # Voids 0 Weight 85.5 kg Patient Weight 12/10/17 23:59 Weight 85.5 kg - General Appearance General appearance: Present: well-developed, appears started age EENT: Present: mucous membranes moist Neck: Present: no JVD Respiratory: Present: clear Cardiology: Present: no edema, regular rate, regular rhythm Gastrointestinal: Present: normoactive bowel sounds, no tenderness Psychiatric: Present: cooperative - Lab 12/10/17 05:24 12/10/17 05:24 Most recent lab results Calcium 8.4 mg/dL (8.6-10.3) L 12/10/17 05:24 Magnesium 2.5 mg/dL (1.6-2.6) 12/06/17 00:09 - VTE Documentation of Mechanical Device: Intermittent pneumatic compression device Consult Discharge Plan - Plan Referrals: Ki Lewis MD [Primary Care Provider] -
[2017-12-10] MEDS: Cyanocobalamin (B-12) 1,000 MCG TABLET PO SCH (09:40)
[2017-12-10] MEDS: Lactulose Oral Soln 20 GM/30 ML UDC PO SCH ×3 (09:40→22:48)
[2017-12-10] MEDS: Lactobacillus 1 EACH CAP.SPRINK PO SCH (09:40)
[2017-12-10] MEDS ORDERED: Ipratropium/Albuterol Neb 3 ML ONE (09:44)
--- NOTE | 2017-12-10 10:00 | Internal Med Progress Note ---
Date of Encounter: 12/10/17 Time of Encounter: 09:45 - Assessment and plan (1) Acute respiratory failure with hypoxia Current Visit: Yes Status: Acute Assessment and plan: patient with acute hypoxic resp failure due to R sided pleural effusion s/p thoracentensis with 1.5 L fluid drained Sent fluid for work up Follow Continue O2 (2) Pleural effusion Current Visit: Yes Status: Acute Assessment and plan: CXR this a.m showed R sided pleural effusion with L mediastinal shift Suspect transudate due to cirrhosis IVF stopped Follow work up Repeat CXR showed partial re-expansion Order repeat CXR a.m (3) Acute kidney injury Current Visit: Yes Status: Acute Assessment and plan: Likely pre-renal, due to diarrhea, GI loss, poor oral intake with concomittant use of diuretics Diuretcs held Renal USS unremarkable Renal function slightly improved, with IVF, s/p albumin Stop IVF Continue to monitor Avoid nephrotoxins (4) Cirrhosis Current Visit: Yes Status: Chronic Assessment and plan: PAIGE cirrhosis continue xifaxan hold aldactone hold lasix due to SHAMIKA on CKD No ascites on exam Ammonia is 40 on admission Repeat done 12/10 is 33 Continue lactulose at lower dose for goal BM of 2-3 times daily Qualifiers: Hepatic cirrhosis type: unspecified hepatic cirrhosis Ascites presence: without ascites Qualified Code(s): K74.60 - Unspecified cirrhosis of liver (5) Hypokalemia Current Visit: Yes Status: Resolved Assessment and plan: resolved, (6) Elevated troponin Current Visit: Yes Status: Acute Assessment and plan: Likely type II. Trop 0.10-0.10-0.09 ECHO from 07/2017 showed preserved EF with MV prolapse moderate no chest pain (7) Hyperchloremic metabolic acidosis Current Visit: Yes Status: Acute (8) Dementia Current Visit: Yes Status: Chronic Qualifiers: Dementia type: Alzheimer's disease Alzheimer's disease onset: unspecified onset Dementia behavioral disturbance: without behavioral disturbance Qualified Code(s): G30.9 - Alzheimer's disease, unspecified; F02.80 - Dementia in other diseases classified elsewhere without behavioral disturbance (9) Lumbar vertebral fracture Current Visit: Yes Status: Acute Assessment and plan: Likely acute Family complained of back pain for a week No witnessed or known hx of fall Continue tylenol, tramadol prn Will need therapy Spine surgery eval noted,recommended head CT-no acute abnormality Qualifiers: Encounter type: initial encounter Lumbar vertebra fracture level: L4 Fracture type: closed Fracture morphology: other fracture Qualified Code(s) : S32.048A - Other fracture of fourth lumbar vertebra, initial encounter for closed fracture (10) Delirium Current Visit: Yes Status: Acute Assessment and plan: Patient with dementia, oriented to self only at baseline Now with confusion, singing his words and talking non-stop Continue risperidone HS Avoid benzodiazepines (11) Goals of care, counseling/discussion Current Visit: Yes Status: Acute Assessment and plan: patient with advanced dementia, cirrhosis, hydrothorax, poor oral intake Now hypernatremic Family will be educated about course of care and goals of care today - Time Spent With Patient Total time spent is greater than 50% in coordination of care (as documented) at patient's floor/unit and/or counseling patient: - Subjective Interval history: Seen and evaluated at bedside with his son He had a fever of 100.4 12/07, (was on gisela hugger overnight) His acute kidney injury is not improving despite bolus IV fluids, Work up including urine analysis was negative for any source of infection. He has not had a recurrence of the fever. Nephrology was consulted 12/07 for acute kidney injury management. Ammonia WNL IVF and albumin given This morning, attention was turned to the patient will continue to groaning pain. On evaluation at the bedside, the patient was hypoxic with oxygen saturation 88%, completely diminished breath sounds in the right lung zone, bilateral wheezing with rhonchi on the right. The patient had been on IV fluids for acute kidney injury. IV fluid was discontinued, stat chest x-ray that showed almost complete opacification of the right lung zone with lung collapse and mediastinal shift. Interventional radiology was consulted stat for therapeutic thoracentesis. 1.5 L of straw-colored pleural fluid was drained. Pleural fluid work up sent Repeat CXR - Constitutional Vitals: Temp Pulse Resp BP Pulse Ox 98.1 F 106 18 103/58 96 12/10/17 06:40 12/10/17 06:40 12/10/17 06:40 12/10/17 06:40 12/10/17 06:40 General appearance: Present: A&O X 1 (confused, groaning), pleasant, no acute distress - Head Head exam: Present: atraumatic, normocephalic - Eye Eye exam: Present: PERRL, conjuntiva pink, sclera anicteric Pupils: Present: PERRL - Neck Neck exam general surgery: Present: supple, trachea midline. Absent: lymphadenopathy - Respiratory Respiratory exam: Present: decreased breath sounds (decreased breath sounds R lung zones), rales, wheezes, tachypnea - Cardiovascular Cardiovascular exam: Present: RRR, +S1, +S2. Absent: diastolic murmur, gallop, rubs, systolic murmur - GI/Abdominal GI/Abdominal exam: Present: normal bowel sounds, soft, no peritoneal signs. Absent: distended, tenderness - Extremities Exam Extremities exam: Present: warm, radial pulses palpable and symmetrical. Absent : calf tenderness, cyanotic, pedal edema - Neurological Exam Neurological exam: Present: alert, CN II-XII intact, no focal deficits. Absent : oriented X3, pronater drift, facial droop, speech deficit - Skin Skin exam: Present: dry, intact Internal Medicine: Result - Labs CBC & Chem 7: 12/10/17 05:24 12/10/17 05:24 Labs: Short CBC 12/10/17 Range/Units 05:24 WBC 6.4 (4.3-11.1) K/mcL Hgb 7.8 L (12.9-16.9) g/dL Hct 24.3 L (37.5-50.1) % Plt Count 61 L (140-400) K/mcL Neutrophils # 3.9 (1.6-8.9) K/mcL BMP 12/10/17 05:24 Sodium 147 H Potassium 4.1 Chloride 124 H Carbon Dioxide 18 L BUN 30 H Creatinine 2.20 H Glucose 106 H Calcium 8.4 L - ABG Interpretation ABG results: PT/INR, D-dimer PT 15.5 Seconds (9.4-12.1) H 12/05/17 13:53 - VTE Documentation of Mechanical Device: Intermittent pneumatic compression device Consult Discharge Plan - Plan Referrals: Ki Lewis MD [Primary Care Provider] -
--- NOTE | 2017-12-10 11:47 | Procedure Note ---
Date of procedure: 12/10/17 Pre-op diagnosis: pleural effusion Post-op diagnosis: same Procedure: Thoracentesis Date: 12/10/2017 Time: 1120 Indication: Large pleural effusion Resident: José Miguel Aaron DO Attending: Daniel Crisostomo MD A time-out was completed verifying correct patient, procedure, site, positioning , and special equipment if applicable. The patients right side was prepped and draped in a sterile manner after the appropriate infiltration level was confirmed by ultrasound. 1% lidocaine was used anesthetize the surrounding skin. A finder needle was then used to locate fluid and clear yellow fluid was obtained. A 10-blade scalpel used to make the incision. The thoracentesis catheter was then threaded without difficulty. The patient had 1500ml of clear yellow fluid removed. Dr. Daniel Crisostomo was present for the entire procedure. A post-procedure chest x-ray was ordered and the fluid will be sent for several studies. Estimated Blood Loss: 0ml The patient tolerated the procedure well and there were no complications. Anesthesia: local Was there an assistant front desk manager present: No Estimated blood loss (cc): 0 Specimen: pleural fluid Condition: stable
[2017-12-10] MEDS: Ipratropium/Albuterol Neb 3 ML IH SCH ×4 (11:49→23:35)
[2017-12-10 13:56] LABS: Albumin 2.8 g/dL (3.5-5.7); Bilirubin,Direct 0.5 mg/dL (0.0-0.2); Bilirubin,Indirect 0.5 mg/dL (0.0-1.2); Globulin 2.7 g/dL (2.4-3.5); Total Protein 5.5 g/dL (6.4-8.9)
--- NOTE | 2017-12-10 15:33 | Palliative - Consult Note ---
Date of Encounter: 12/10/17 Time of Encounter: 14:30 - Assessment and Plan (1) Dementia Current Visit: No Status: Chronic Assessment and plan: Patient has dementia. Alert and oriented to person only. Explained risk of possible PEG tube placement with Dementia diagnosis. Qualifiers: Dementia type: Alzheimer's disease Alzheimer's disease onset: late-onset Dementia behavioral disturbance: without behavioral disturbance Qualified Code (s): G30.1 - Alzheimer's disease with late onset; F02.80 - Dementia in other diseases classified elsewhere without behavioral disturbance; F02.80 - Dementia in other diseases classified elsewhere without behavioral disturbance; F02.80 - Dementia in other diseases classified elsewhere without behavioral disturbance (2) Cirrhosis Current Visit: Yes Status: Chronic Qualifiers: Hepatic cirrhosis type: unspecified hepatic cirrhosis Ascites presence: without ascites Qualified Code(s): K74.60 - Unspecified cirrhosis of liver (3) HCAP (healthcare-associated pneumonia) Current Visit: Yes Status: Acute Assessment and plan: WBC 6.4, increased from yesterday. Had thoracentesis today for management of Pleural effusion. (4) Pleural effusion Current Visit: Yes Status: Acute Assessment and plan: Patient had thoracentesis today, took 1.5L off. Post xray showed no pneumothorax. (5) Compression fracture of L4 lumbar vertebra Current Visit: Yes Status: Acute Assessment and plan: Medical management of fracture recommended per pain management, follow recommendations. Patient denies pain during assessment. Qualifiers: Encounter type: initial encounter Fracture type: closed Qualified Code(s) : S32.040A - Wedge compression fracture of fourth lumbar vertebra, initial encounter for closed fracture (6) Acute respiratory failure with hypoxia Current Visit: Yes Status: Acute Assessment and plan: Patient's oxygen saturation varied frequently during assessment, frequent reminders for deep breathing exercised to be encouraged. Continue Oxygen Therapy and duonebs. (7) Goals of care, counseling/discussion Current Visit: Yes Status: Acute Assessment and plan: Patients family reports that Dr. Parks just came in and explained that patient is at a fork in the road. Family desires to have continued time to discuss goals of care including risk versus benefit of feeding tube. Family also considering home versus ECF with hospice. Patients daughter reports there are two additional siblings that are not present, but would like to participate in decision making. Family meeting is set for 3 pm Sunday. Family is hopeful patient will improve prior to family meeting. CODE STATUS and current plan of care to be continued at present time. Palliative-CN HPI - Data of Consult Patient: new to practice Consult date: 12/10/17 Requesting Physician: Kimani Parks MD Primary Care Provider: Ki Lewis MD - Consult Narrative Palliative Care/Comfort Measures: Palliative care Reason for consult: Goals of care History of present illness: Mr. Meneses is a 82 year old male Brought to [facility] on 12/05/17, via EMS, from [facility]. Patient has been a resident of [facility] [place] since August 03, 2017, minus a short stay admitted to the hospital. Per record, patient had minimal oral intake for the previous 5 days prior to admission. Patient admitted for HCAP, Hypoxia, Pleural Effusion, SHAMIKA, and elevated troponins. PMH: Cirrhosis, Dementia, and liver disease. Initial Chest x-ray showed moderate right pleural effusion with overlying atelectasis versus pneumonia. CT of chest shows: large right pleural effusion, with near complete collapse of the right lower lobe, with partial collapse of the right middle and right upper lobes; airspace disease adjacent to the pleural effusion appears to be primarily atelectatic rather than pneumonic. Patient has known DNR CCA/DNI order. Patient admitted and medically managed for Cirrhosis, hypokalemia, hypoxia, pleural effusion, elevated troponin, renal azotemia, hyperchloremic metabolic acidosis, SHAMIKA, and dementia. Xray of lumbar spine showed transitional vertebral body with lumbarization of S1 and L4 superior endplate fracture. Retroperitoneal ultrasound shows no acute abnormalities of kidneys or urinary bladder. New diagnosis of lumbar vertebral fracture with consultation for spine surgery; pain management recommended conservative treatment as poor surgical candidate. Nephrology consulted for SHAMIKA, recommend hydration and avoid nephrotoxins. Head CT showed no acute intracranial abnormality. Repeat chest xray showed worsening pleural effusion with mediastinal shift to the left; thoracentesis performed pulling off 1.5 L. Post procedure chest xray showed no pneumothorax. Palliative care consulted for goals of care discussion. Patient resting quietly in bed with eyes closed upon arrival for assessment. Patient is alert to person only and repeats I just want to go home. Patients Jennifer ([phone] or [phone]) and daughter Kayla ([phone]), along with family friend Carolyne, present at bedside for assessment. Patient denies pain, anxiety, shortness of breath, nausea, or vomiting during assessment. Spoke with nurse upon completing assessment and patient start Risperdal last night; however, they are having difficulty getting medications swallowed. CC: Kimani Parks MD Past Med Surg Social Fam HX - Past Medical History Medical history: cirrhosis, dementia, liver disease, other Additional medical history: Hernia Psychiatric history: no psych history - Past Surgical History Surgical History: other - Social History Smoking Status: Never smoker Smokeless Tobacco Status: No Alcohol use: none Drug use: none - Family History Mother Living Status: Age at : 63 Hx Family Cardiac Disorders: Yes Hx Family Respiratory Disorders: No Hx Family GI Disorders: Yes Hx Family Endocrine Disorder: Yes Hx Family Medical Disorders: Yes Medications and Allergies Lactobacillus Acidophilus/Pect [Acidophilus-Pectin Capsule] 1 each PO DAILY 08/09 [History] Cyanocobalamin (Vitamin B-12) [Vitamin B12] 1,000 mcg PO DAILY 04/27/15 [History ] Furosemide [Lasix] 40 mg PO BID 07/29/15 [History] Donepezil HCl [Aricept] 10 mg PO HS 07/27/17 [History] Rifaximin [Xifaxan] 550 mg PO BID #60 tablet 08/03/17 [Rx] Escitalopram Oxalate 5 mg PO DAILY 09/05/17 [History] Lactulose 45 gm PO QID 09/05/17 [History] Gabapentin [Neurontin] 300 mg PO BID #10 capsule 09/10/17 [Rx] Tramadol HCl [Ultram] 50 mg PO TID PRN 5 Days #15 tab 09/10/17 [Rx] Pantoprazole Sodium [Protonix] 40 mg PO DAILY 12/05/17 [History] 3 Allergy/AdvReac Type Severity Reaction Status Date / Time acetaminophen [From Percocet] Allergy Nausea Verified 09/05/17 13:59 ciprofloxacin [From Cipro] AdvReac See Verified 09/05/17 13:59 Comments metronidazole [From Flagyl] AdvReac Dizziness Verified 09/05/17 13:59 Oxycodone [From Percocet] AdvReac Nausea Verified 09/05/17 13:59 - Constitutional Constitutional ROS PAL: decreased appetite - Cardiovascular Cardiovascular ROS: no chest pain - Gastrointestinal Gastrointestinal: nausea, vomiting, no abdominal pain - Musculoskeletal Musculoskeletal ROS IM: back pain - Neurological Neurological ROS: memory loss (Dementia) - Psychiatric Psychiatric general PM: change in appetite, memory loss Palliative Care-Exam - Constitutional Vitals: Temp Pulse Resp BP Pulse Ox 98.1 F 106 18 103/58 95 12/10/17 06:40 12/10/17 06:40 12/10/17 11:49 12/10/17 06:40 12/10/17 11:49 General appearance: Present: mild distress - Head Head Exam: Present: atraumatic, normal inspection - Eye Eye exam: Present: PERRL. Absent: periorbital swelling, periorbital tenderness Pupils: Present: normal accommodation, PERRL - ENT ENT exam: Present: mucous membranes dry - Expanded ENT Exam Mouth Exam: Present: dry mucosa - Neck Neck exam: Present: full ROM, normal inspection - Respiratory Respiratory exam: Present: wheezes. Absent: respiratory distress - Cardiovascular Cardiovascular exam: Present: +S1, +S2 - Expanded Cardiovascular Exam Peripheral pulses: 1+: Radial (L), Radial (R), Dorsalis Pedis (L) PM, Dorsalis Pedis (R) PM - GI/Abdominal Exam GI/Abdominal exam: Present: hyperactive bowel sounds - Rectal Rectal Exam: Present: deferred - Catheter Type: Urethral (Terrell) - Extremities Exam Extremities exam: Absent: calf tenderness - Expanded Upper Extremities Exam Forearm wrist exam: Present: full ROM. Absent: normal inspection (bruising noted to left arm.) - Neurological Exam Neurological exam: Present: alert, altered - Expanded Neurological Exam Patient oriented to: Present: person. Absent: place, time - Psychiatric Psychiatric exam: Present: flat affect (Tearful) Internal Medicine - CN: Reslt - Labs CBC & Chem 7: 12/10/17 05:24 12/10/17 05:24 - ABG Interpretation ABG results: PT/INR, D-dimer PT 15.5 Seconds (9.4-12.1) H 12/05/17 13:53 - Impressions Impressions Chest X-Ray 12/10/17 11:45 IMPRESSION: No pneumothorax after thoracentesis. Improvement in the appearance the chest D/ / Sean Ruelas MD / Sean Ruelas MD Interpreting Provider: Sean Ruelas MD Consult Discharge Plan - Plan Referrals: Ki Lewis MD [Primary Care Provider] - Palliative Quality Palliative Quality: Screen for Code Status: Yes, Screen for Goals of Care: Yes, Screen for Pain: Yes, If Pain Regimen Started, Initiate Bowel Regimen: NA, Screen for Nausea/Vomitting: Yes
[2017-12-10 16:12] LABS: RBC,Pleural Fluid < 0.002 M/mcL
[2017-12-10 16:13] LABS: Appearance of Pleural Fl Clear (Clear)
[2017-12-10 16:27] LABS: Glucose,Pleural Fluid 127 mg/dL (No Ref Range); LDH,Pleural Fluid 33 Units/L (No Ref Range); Total Protein,Pleural Fluid < 3.0 g/dL (No Ref Range)
[2017-12-10] MEDS: risperiDONE 0.25 MG TABLET PO SCH (22:48)
[2017-12-11] MEDS: Ipratropium/Albuterol Neb 3 ML IH SCH ×6 (04:02→23:38)
[2017-12-11 05:11] LABS: Basophils % 0.3 %; Eosinophils # 0.3 K/mcL (0.0-0.6); Eosinophils % 3.7 %; Hemoglobin 8.1 g/dL (12.9-16.9); Immature Granulocytes % 0.9 % (0-4); Immature Platelets 2.4 % (1.1-6.1); Lymphocytes # 1.6 K/mcL (0.6-4.6); Lymphocytes % 20.4 %; Mean Corpuscular HGB Conc 31.2 g/dL (31.6-35.5); Mean Corpuscular Hemoglobin 32.3 pg (28.0-33.3); Mean Corpuscular Volume 103.6 fL (83.0-100.0); Mean Platelet Volume 10.5 fL (9.4-12.4); Monocytes # 0.9 K/mcL (0.0-1.3); Neutrophils # 4.8 K/mcL (1.6-8.9); Red Blood Count 2.51 M/mcL (4.19-5.50); Red Cell Distribution Width 18.3 % (11.5-14.5); Segmented Neutrophils % 62.7 %
[2017-12-11 05:14] LABS: Platelet Count 62 K/mcL (140-400)
[2017-12-11 05:32] LABS: Calcium 8.6 mg/dL (8.6-10.3); Potassium 4.3 mEq/L (3.5-5.1)
--- NOTE | 2017-12-11 08:07 | Nephrology Progress Note ---
Date of Encounter: 12/11/17 Time of Encounter: 08:05 - Assessment and Plan (1) Acute kidney injury Current Visit: Yes Status: Acute Patient has acute kidney injury superimposed on stage III chronic kidney disease in the setting of volume depletion. His renal function is slowly improving. His hypernatremia is worsening. He is going require additional free water administration intravenously. (2) Chronic kidney disease, stage III (moderate) Current Visit: Yes Status: Acute (3) Hypernatremia Current Visit: Yes Status: Acute Subjective Interval history: The patient is lying in bed quietly. He is in no acute distress. He seems nonverbal. Creatinine continues to slowly improve. Sodium continues to increase. Objective - Vital Signs Vital signs: Vital Signs Temp Pulse Resp BP Pulse Ox 12/11/17 07:31 16 97 12/11/17 07:28 97.9 F 90 16 119/53 96 12/11/17 05:00 98 F 100 16 113/58 95 12/11/17 04:02 18 96 12/10/17 23:38 16 94 12/10/17 22:50 94 12/10/17 20:00 98.1 F 93 16 122/62 97 12/10/17 15:56 18 97 12/10/17 15:44 81 15 110/98 96 12/10/17 11:49 18 95 Intake and Output 12/10/17 12/11/17 12/11/17 23:59 07:59 15:59 Intake Total 145 / 145 120 / 120 Output Total 200 / 200 450 / 450 Balance -55 / -55 -330 / -330 Intake: Oral 145 / 145 120 / 120 Output: Urine 200 / 200 200 / 200 Catheter 250 / 250 Other: Stool Size Moderate Stool Consistency loose Stool Color Brown # Bowel Movements 1 Weight 83.2 kg Patient Weight 12/11/17 23:59 Weight 83.2 kg - General Appearance Exam: Patient is lying in bed. He is in no acute distress. He is nonverbal. Blood pressure 119/53. Lung sounds otherwise clear. Heart regular rate and rhythm. Abdomen is benign. There is no peripheral edema. - Lab 12/11/17 04:17 12/11/17 04:17 Most recent lab results Calcium 8.6 mg/dL (8.6-10.3) 12/11/17 04:17 Magnesium 2.5 mg/dL (1.6-2.6) 12/06/17 00:09 - VTE Documentation of Mechanical Device: Intermittent pneumatic compression device Consult Discharge Plan - Plan Referrals: Ki Lewis MD [Primary Care Provider] -
--- NOTE | 2017-12-11 10:15 | Pulmonology Consult Note ---
Date of Encounter: 12/11/17 Time of Encounter: 13:00 Assessment and Plan (1) Pleural effusion Current Visit: Yes Status: Acute This patient with liver cirrhosis and his been having pleural effusion with rapid accumulation and I feel he would be candidate for Pleurx pleural catheter and all the risks, alternative, benefits of the procedure explained to the family at the bedside and they agree to have it done. 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 Thanks for consultation. (2) Cirrhosis Current Visit: Yes Status: Chronic Qualifiers: Hepatic cirrhosis type: unspecified hepatic cirrhosis Ascites presence: without ascites Qualified Code(s): K74.60 - Unspecified cirrhosis of liver History of Present Illness Consult date: 12/11/17 Requesting physician: Sara Aaron Reason for consult: pleural effusion Chief complaint: dyspnea History of present illness: This is a 82-year-old male with history of dementia and liver cirrhosis and he had thoracentesis done with rapid reaccumulation and pulmonary was consulted for evaluation of placing Pleurx pleural catheter. Patient is not able to give any history due to his mental condition and family at the bedside who stated that patient's condition is deteriorating and for palliative reason I would agree to have Pleurx catheter. Otherwise history is very limited. Past Med Surg Social Fam HX - Past Medical History Medical history: cirrhosis, dementia, liver disease, other Additional medical history: Hernia Psychiatric history: no psych history - Past Surgical History Surgical History: other - Social History Smoking Status: Never smoker Smokeless Tobacco Status: No Alcohol use: none Drug use: none - Family History Mother Living Status: Age at : 63 Hx Family Cardiac Disorders: Yes Hx Family Respiratory Disorders: No Hx Family GI Disorders: Yes Hx Family Endocrine Disorder: Yes Hx Family Medical Disorders: Yes Medications and Allergies Lactobacillus Acidophilus/Pect [Acidophilus-Pectin Capsule] 1 each PO DAILY 08/09 [History] Cyanocobalamin (Vitamin B-12) [Vitamin B12] 1,000 mcg PO DAILY 04/27/15 [History ] Furosemide [Lasix] 40 mg PO BID 07/29/15 [History] Donepezil HCl [Aricept] 10 mg PO HS 07/27/17 [History] Rifaximin [Xifaxan] 550 mg PO BID #60 tablet 08/03/17 [Rx] Escitalopram Oxalate 5 mg PO DAILY 09/05/17 [History] Lactulose 45 gm PO QID 09/05/17 [History] Gabapentin [Neurontin] 300 mg PO BID #10 capsule 09/10/17 [Rx] Tramadol HCl [Ultram] 50 mg PO TID PRN 5 Days #15 tab 09/10/17 [Rx] Pantoprazole Sodium [Protonix] 40 mg PO DAILY 12/05/17 [History] 3 Allergy/AdvReac Type Severity Reaction Status Date / Time acetaminophen [From Percocet] Allergy Nausea Verified 09/05/17 13:59 ciprofloxacin [From Cipro] AdvReac See Verified 09/05/17 13:59 Comments metronidazole [From Flagyl] AdvReac Dizziness Verified 09/05/17 13:59 Oxycodone [From Percocet] AdvReac Nausea Verified 09/05/17 13:59 ROS unobtainable: due to mental status All Systems: The remainder of the systems were reviewed and are negative Physical Examination Vital Signs: Vital Signs, Last 4 Hours Temp Pulse Resp BP Pulse Ox 12/11/17 07:31 16 97 12/11/17 07:28 97.9 F 90 16 119/53 96 General appearance: no acute distress Eyes: nonicteric ENT: oropharynx dry Neck: supple Effort: mildly labored Auscultation: left: rhonchi, right: diminished breath sounds Percussion: left: not dull, right: dull Cardiovascular: regular rate and rhythm Gastrointestinal: normoactive bowel sounds, non-distended Extremities: no cyanosis, edema unable to assess due to mental status Results - Laboratory Findings CBC and BMP: 12/11/17 04:17 12/11/17 04:17 PT/INR, D-dimer PT 15.5 Seconds (9.4-12.1) H 12/05/17 13:53 Abnormal lab findings: Abnormal lab results RBC 2.51 M/mcL (4.19-5.50) L 12/11/17 04:17 Hgb 8.1 g/dL (12.9-16.9) L 12/11/17 04:17 Hct 26.0 % (37.5-50.1) L 12/11/17 04:17 MCV 103.6 fL (83.0-100.0) H 12/11/17 04:17 MCHC 31.2 g/dL (31.6-35.5) L 12/11/17 04:17 RDW 18.3 % (11.5-14.5) H 12/11/17 04:17 Plt Count 62 K/mcL (140-400) L 12/11/17 04:17 PT 15.5 Seconds (9.4-12.1) H 12/05/17 13:53 VBG pCO2 30 mmHg (41-51) L 12/05/17 14:09 VBG pO2 199 mmHg (25-50) H 12/05/17 14:09 VBG HCO3 18 mEq/L (21-27) L 12/05/17 14:09 Sodium 150 mEq/L (136-145) H 12/11/17 04:17 Chloride 127 mEq/L (98-107) H 12/11/17 04:17 Carbon Dioxide 17 mEq/L (23-29) L 12/11/17 04:17 BUN 34 mg/dL (8-23) H 12/11/17 04:17 Creatinine 2.12 mg/dL (0.70-1.30) H 12/11/17 04:17 Est GFR ( Amer) 36 (> 60) L 12/11/17 04:17 Est GFR (Non-Af Amer) 30 (> 60) L 12/11/17 04:17 Glucose 108 mg/dL (70-105) H 12/11/17 04:17 Calculated Osmolality 318 (280-300) H 12/11/17 04:17 Direct Bilirubin 0.5 mg/dL (0.0-0.2) H 12/10/17 05:24 AST 45 Units/L (13-39) H 12/10/17 05:24 Alkaline Phosphatase 156 Units/L (34-104) H 12/10/17 05:24 Troponin I 0.09 ng/mL (< 0.04) H* 12/06/17 00:09 Serum Total Protein 5.5 g/dL (6.4-8.9) L 12/10/17 05:24 Albumin 2.8 g/dL (3.5-5.7) L 12/10/17 05:24 Albumin/Globulin Ratio 1.0 (1.1-2.2) L 12/10/17 05:24 Urine Ketones Trace mg/dL (Negative) H 12/07/17 13:30 Urine Blood Small (Negative) H 12/07/17 13:30 Ur Leukocyte Esterase Trace (Negative) H 12/07/17 13:30 Ur Squamous Epith Cells Many per lpf (None-Few) H 12/07/17 13:30 Ur Culture Indicated? NO. (NO) A 12/07/17 13:30 - Microbiology Findings Microbiology Findings: Microbiology, Last 48 Hours 12/10/17 11:30 Body Fluid Culture - Preliminary Pleural Fluid - Diagnostic Findings Chest x-ray: report reviewed, image reviewed - Clinical Findings Intake & Output: Intake & Output 12/10/17 12/11/17 12/11/17 23:59 07:59 15:59 Intake Total 145 / 145 120 / 120 480 / 480 Output Total 200 / 200 450 / 450 Balance -55 / -55 -330 / -330 480 / 480 Weight 83.2 kg Consult Discharge Plan - Plan Referrals: Ki Lewis MD [Primary Care Provider] -
--- NOTE | 2017-12-11 10:21 | Internal Med Progress Note ---
<Sara Aaron - Last Filed: 12/11/17 15:20> Date of Encounter: 12/11/17 Time of Encounter: 10:19 - Assessment and plan (1) Acute respiratory failure with hypoxia Current Visit: Yes Status: Acute Assessment and plan: Patient presented with acute hypoxic resp failure secondary to right sided pleural effusion s/p thoracentensis with 1.5 L fluid drained 12/10 CXR 12/11 shows reaccumulated right effusion Cytology pending Pt not currently in respiratory distress Plan: Pulmonolgy consulted--plan for pleurex catheter placement tomorrow Continue to monitor Oxygen as needed Sent fluid for work up (2) Pleural effusion Current Visit: Yes Status: Acute Assessment and plan: Pt had thoracentesis yesterday with 1.5L clear yellow fluid drained, cytology pending. Pleural LDH 33, protein <3.0. Serum LDH 189, serum protein 5.5. CXR this a.m showed R sided pleural effusion that has increased in volume, with progressive left lung opacities reflecting worsening edema. Suspect transudate due to cirrhosis Lasix on hold secondary to SHAMIKA Plan: Continue to hold IVF as able Pulmonology consulted, appreciate their input and recommendations May need repeat thoracentesis vs pleurex catheter. 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 (4) Cirrhosis Current Visit: Yes Status: Chronic Assessment and plan: PAIGE cirrhosis Pt has required paracentesis in the past. Pt abd soft, mild distension, small fluid wave. Ammonia is 40 on admission Repeat done 12/10 is 33 Plan: Continue xifaxan Contine to hold aldactone Continue to hold lasix due to SHAMIKA on CKD Continue lactulose at lower dose for goal BM of 2-3 times daily Qualifiers: Hepatic cirrhosis type: unspecified hepatic cirrhosis Ascites presence: without ascites Qualified Code(s): K74.60 - Unspecified cirrhosis of liver (5) Hyperchloremic metabolic acidosis Current Visit: Yes Status: Acute Assessment and plan: Improving (6) Elevated troponin Current Visit: Yes Status: Acute Assessment and plan: Likely demand ischemia in setting of SHAMIKA and pleural effusion. 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 No witnessed or known hx of fall Spine surgery eval noted,recommended head CT-no acute abnormality Plan: Continue tylenol, tramadol prn Will need PT Qualifiers: Encounter type: initial encounter Lumbar vertebra fracture level: L4 Fracture type: closed Fracture morphology: other fracture Qualified Code(s) : S32.048A - Other fracture of fourth lumbar vertebra, initial encounter for closed fracture (9) Delirium Current Visit: Yes Status: Acute Assessment and plan: Patient with dementia, oriented to self only at baseline Acute delirium resolved. Plan: Continue risperidone HS Avoid benzodiazepines (10) Hypokalemia Current Visit: Yes Status: Resolved Assessment and plan: resolved, (11) Goals of care, counseling/discussion Current Visit: Yes Status: Acute Assessment and plan: patient with advanced dementia, cirrhosis, hydrothorax, poor oral intake Now hypernatremic Plan: Palliative consulted for goals of care discussion Plan based on decision of (POA) - Time Spent With Patient Total time spent is greater than 50% in coordination of care (as documented) at patient's floor/unit and/or counseling patient: - Subjective Interval history: Pt seen and examined. He is resting comfortably in bed and follows basic commands. [place] nurse at bedside states is POA and will be in later to discuss goals of care. She states that he has not seemed in any respiratory distress to her. She notes he is still not eating. Pt does answer questions and denies SOB or CP as well. - Constitutional Vitals: Temp Pulse Resp BP Pulse Ox 97.9 F 90 16 119/53 97 12/11/17 07:28 12/11/17 07:28 12/11/17 07:31 12/11/17 07:28 12/11/17 07:31 General appearance: Present: A&O X 1 (confused, groaning), pleasant, no acute distress - Head Head exam: Present: atraumatic, normocephalic - Eye Eye exam: Present: PERRL, conjuntiva pink, sclera anicteric Pupils: Present: PERRL - ENT ENT exam: Present: mucous membranes moist - Neck Neck exam general surgery: Present: supple, trachea midline. Absent: lymphadenopathy - Respiratory Respiratory exam: Present: decreased breath sounds (on the right). Absent: accessory muscle use, respiratory distress, wheezes, tachypnea - Cardiovascular Cardiovascular exam: Present: RRR, +S1, +S2. Absent: diastolic murmur, gallop, rubs, systolic murmur - GI/Abdominal GI/Abdominal exam: Present: distended, normal bowel sounds, soft, no peritoneal signs. Absent: firm, guarding, tenderness - Extremities Exam Extremities exam: Present: warm, radial pulses palpable and symmetrical. Absent : calf tenderness, cyanotic, pedal edema - Neurological Exam Neurological exam: Present: alert. Absent: speech deficit - Psychiatric Psychiatric exam: Present: normal affect, normal mood - Skin Skin exam: Present: dry, intact Internal Medicine: Result - Labs CBC & Chem 7: 12/11/17 04:17 12/11/17 04:17 Labs: Short CBC 12/11/17 Range/Units 04:17 WBC 7.6 (4.3-11.1) K/mcL Hgb 8.1 L (12.9-16.9) g/dL Hct 26.0 L (37.5-50.1) % Plt Count 62 L (140-400) K/mcL Neutrophils # 4.8 (1.6-8.9) K/mcL BMP 12/11/17 04:17 Sodium 150 H Potassium 4.3 Chloride 127 H Carbon Dioxide 17 L BUN 34 H Creatinine 2.12 H Glucose 108 H Calcium 8.6 - ABG Interpretation ABG results: PT/INR, D-dimer PT 15.5 Seconds (9.4-12.1) H 12/05/17 13:53 - Impressions Impressions Chest X-Ray 12/10/17 11:45 IMPRESSION: No pneumothorax after thoracentesis. Improvement in the appearance the chest D/ / Sean Ruelas MD / Sean Ruelas MD Interpreting Provider: Sean Ruelas MD Chest X-Ray 12/11/17 04:00 IMPRESSION: Right pleural effusion has increased in volume. Progressive left lung opacities favored to reflect worsening edema. D/ / Fritz Grier / Fritz Grier Interpreting Provider: Fritz Grier - VTE Documentation of Mechanical Device: Intermittent pneumatic compression device Consult Discharge Plan - Plan Referrals: Ki Lewis MD [Primary Care Provider] - <Katherine Coats - Last Filed: 12/11/17 18:56> Date of Encounter: 12/11/17 - Assessment and plan (1) Cirrhosis Current Visit: Yes Status: Chronic Qualifiers: Hepatic cirrhosis type: unspecified hepatic cirrhosis Ascites presence: without ascites Qualified Code(s): K74.60 - Unspecified cirrhosis of liver (2) Hypokalemia Current Visit: Yes Status: Resolved (3) Acute kidney injury Current Visit: Yes Status: Acute (4) Pleural effusion Current Visit: Yes Status: Acute (5) Elevated troponin Current Visit: Yes Status: Acute (6) Hyperchloremic metabolic acidosis Current Visit: Yes Status: Acute (7) Dementia Current Visit: Yes Status: Chronic Qualifiers: Dementia type: Alzheimer's disease Alzheimer's disease onset: unspecified onset Dementia behavioral disturbance: without behavioral disturbance Qualified Code(s): G30.9 - Alzheimer's disease, unspecified; F02.80 - Dementia in other diseases classified elsewhere without behavioral disturbance (8) Lumbar vertebral fracture Current Visit: Yes Status: Acute Qualifiers: Encounter type: initial encounter Lumbar vertebra fracture level: L4 Fracture type: closed Fracture morphology: other fracture Qualified Code(s) : S32.048A - Other fracture of fourth lumbar vertebra, initial encounter for closed fracture (9) Acute respiratory failure with hypoxia Current Visit: Yes Status: Acute (10) Delirium Current Visit: Yes Status: Acute (11) Goals of care, counseling/discussion Current Visit: Yes Status: Acute - Time Spent With Patient Total time spent is greater than 50% in coordination of care (as documented) at patient's floor/unit and/or counseling patient: - Constitutional Vitals: Temp Pulse Resp BP Pulse Ox 98.1 F 92 16 127/86 95 12/11/17 17:08 12/11/17 17:08 12/11/17 17:08 12/11/17 17:08 12/11/17 17:08 Internal Medicine: Result - Labs CBC & Chem 7: 12/11/17 04:17 12/11/17 04:17 Labs: Short CBC 12/11/17 Range/Units 04:17 WBC 7.6 (4.3-11.1) K/mcL Hgb 8.1 L (12.9-16.9) g/dL Hct 26.0 L (37.5-50.1) % Plt Count 62 L (140-400) K/mcL Neutrophils # 4.8 (1.6-8.9) K/mcL BMP 12/11/17 04:17 Sodium 150 H Potassium 4.3 Chloride 127 H Carbon Dioxide 17 L BUN 34 H Creatinine 2.12 H Glucose 108 H Calcium 8.6 - ABG Interpretation ABG results: PT/INR, D-dimer PT 15.5 Seconds (9.4-12.1) H 12/05/17 13:53 - Impressions Impressions Chest X-Ray 12/11/17 04:00 IMPRESSION: Right pleural effusion has increased in volume. Progressive left lung opacities favored to reflect worsening edema. D/ / Fritz Grier / Fritz Grier Interpreting Provider: Fritz Grier - Attending Attestation I examined this patient and my medical decision-making was reviewed with the Resident Physician. I agree with the documented findings, disposition and treatment plan as described except to the extent set forth below.
[2017-12-11] MEDS: Cyanocobalamin (B-12) 1,000 MCG TABLET PO SCH (10:31)
[2017-12-11] MEDS: Lactulose Oral Soln 20 GM/30 ML UDC PO SCH ×3 (10:31→20:51)
[2017-12-11] MEDS: Lactobacillus 1 EACH CAP.SPRINK PO SCH (10:32)
[2017-12-11] MEDS: D5% in Water 1,000 ML IVC SCH ×2 (10:33→21:13)
[2017-12-11] MEDS ORDERED: *HR* Metoprolol 5 MG/5 ML VIAL IVP PRN (13:44)
[2017-12-11] MEDS: risperiDONE 0.25 MG TABLET PO SCH (20:52)
[2017-12-12] MEDS: Ipratropium/Albuterol Neb 3 ML IH SCH ×6 (04:14→23:43)
[2017-12-12 05:47] LABS: Basophils % 0.4 %; Eosinophils # 0.6 K/mcL (0.0-0.6); Eosinophils % 6.3 %; Hemoglobin 8.2 g/dL (12.9-16.9); Immature Granulocytes % 1.2 % (0-4); Immature Platelets 2.7 % (1.1-6.1); Lymphocytes # 1.5 K/mcL (0.6-4.6); Lymphocytes % 16.4 %; Mean Corpuscular HGB Conc 31.5 g/dL (31.6-35.5); Mean Corpuscular Hemoglobin 31.9 pg (28.0-33.3); Mean Corpuscular Volume 101.2 fL (83.0-100.0); Mean Platelet Volume 10.3 fL (9.4-12.4); Monocytes # 1.3 K/mcL (0.0-1.3); Monocytes % 13.9 %; Neutrophils # 5.6 K/mcL (1.6-8.9); Red Blood Count 2.57 M/mcL (4.19-5.50); Red Cell Distribution Width 18.6 % (11.5-14.5); Segmented Neutrophils % 61.8 %
[2017-12-12 05:48] LABS: INR 1.5; Prothrombin Time 16.4 Seconds (9.4-12.1)
[2017-12-12 05:49] LABS: Platelet Count 66 K/mcL (140-400)
[2017-12-12 05:51] LABS: Activated Partial Thrombo Time 34.6 Seconds (26.0-36.0)
[2017-12-12 06:03] LABS: Albumin 2.5 g/dL (3.5-5.7); Albumin/Globulin Ratio 0.9 (1.1-2.2); Bilirubin,Total 1.2 mg/dL (0.3-1.0); Calcium 8.6 mg/dL (8.6-10.3); Globulin 2.8 g/dL (2.4-3.5); Potassium 4.1 mEq/L (3.5-5.1); Total Protein 5.3 g/dL (6.4-8.9)
--- NOTE | 2017-12-12 07:58 | Internal Med Progress Note ---
<Sara Aaron - Last Filed: 12/12/17 07:56> Date of Encounter: 12/12/17 Time of Encounter: 07:56 - Assessment and plan (1) Acute respiratory failure with hypoxia Current Visit: Yes Status: Acute Assessment and plan: Patient presented with acute hypoxic resp failure secondary to right sided pleural effusion s/p thoracentensis with 1.5 L fluid drained 12/10 CXR 12/11 demonstrated reaccumulated right effusion Cytology negative Pt not currently in respiratory distress Plan: Pulmonolgy consulted--plan for pleurex catheter placement today Continue to monitor Oxygen as needed (2) Pleural effusion Current Visit: Yes Status: Acute Assessment and plan: Pt had thoracentesis 12/10 with 1.5L clear yellow fluid drained, cytology negative. Pleural LDH 33, protein <3.0. Serum LDH 189, serum protein 5.5. CXR 12/11 demonstrated R sided pleural effusion that has increased in volume, with progressive left lung opacities reflecting worsening edema. 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 (4) Cirrhosis Current Visit: Yes Status: Chronic Assessment and plan: PAIGE cirrhosis Pt has required paracentesis in the past. Pt abd soft, mild distension, small fluid wave. Ammonia is 40 on admission Repeat done 12/10 is 33 Plan: Continue xifaxan Contine to hold aldactone Continue to hold lasix due to SHAMIKA on CKD Continue lactulose at lower dose for goal BM of 2-3 times daily Qualifiers: Hepatic cirrhosis type: unspecified hepatic cirrhosis Ascites presence: without ascites Qualified Code(s): K74.60 - Unspecified cirrhosis of liver (5) Hyperchloremic metabolic acidosis Current Visit: Yes Status: Acute Assessment and plan: Improving (6) Elevated troponin Current Visit: Yes Status: Acute Assessment and plan: Likely demand ischemia in setting of SHAMIKA and pleural effusion. 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 No witnessed or known hx of fall Spine surgery eval noted,recommended head CT-no acute abnormality Plan: Continue tylenol, tramadol prn Will need PT Qualifiers: Encounter type: initial encounter Lumbar vertebra fracture level: L4 Fracture type: closed Fracture morphology: other fracture Qualified Code(s) : S32.048A - Other fracture of fourth lumbar vertebra, initial encounter for closed fracture (9) Delirium Current Visit: Yes Status: Acute Assessment and plan: Patient with dementia, oriented to self only at baseline Acute delirium resolved. Plan: Continue risperidone HS Avoid benzodiazepines (10) Hypokalemia Current Visit: Yes Status: Resolved Assessment and plan: resolved, (11) Goals of care, counseling/discussion Current Visit: Yes Status: Acute Assessment and plan: patient with advanced dementia, cirrhosis, hydrothorax, poor oral intake Now hypernatremic Plan: Palliative consulted for goals of care discussion Plan based on decision of (POA) - Time Spent With Patient Total time spent is greater than 50% in coordination of care (as documented) at patient's floor/unit and/or counseling patient: - Subjective Interval history: Pt seen and examined. He is resting comfortably in bed and follows basic commands. Family member is at bedside and is feeding him thickened orange juice , states he has been drinking well and had a milk shake last night. He states that he has not seemed in any respiratory distress this morning. - Constitutional Vitals: Temp Pulse Resp BP Pulse Ox 98.6 F 68 20 120/56 100 12/12/17 05:00 12/12/17 07:25 12/12/17 07:25 12/12/17 07:25 12/12/17 07:25 General appearance: Present: A&O X 1 (confused, groaning), pleasant, no acute distress - Head Head exam: Present: atraumatic, normocephalic - Eye Eye exam: Present: PERRL, conjuntiva pink, sclera anicteric Pupils: Present: PERRL - ENT ENT exam: Present: mucous membranes dry - Neck Neck exam general surgery: Present: supple, trachea midline. Absent: lymphadenopathy - Respiratory Respiratory exam: Present: decreased breath sounds (on the right), rhonchi. Absent: respiratory distress, wheezes, tachypnea - Cardiovascular Cardiovascular exam: Present: RRR, +S1, +S2. Absent: diastolic murmur, gallop, rubs, systolic murmur, tachycardia - GI/Abdominal GI/Abdominal exam: Present: normal bowel sounds, soft, no peritoneal signs. Absent: distended, tenderness - Extremities Exam Extremities exam: Present: warm, radial pulses palpable and symmetrical. Absent : calf tenderness, cyanotic, pedal edema - Neurological Exam Neurological exam: Present: alert. Absent: facial droop, speech deficit - Expanded Neurological Exam Neurological exam expanded: Absent: tremor Patient oriented to: Present: person. Absent: place, time - Psychiatric Psychiatric exam: Present: normal affect, normal mood - Skin Skin exam: Present: dry, intact Internal Medicine: Result - Labs CBC & Chem 7: 12/12/17 05:24 12/12/17 05:24 Labs: Short CBC 12/12/17 Range/Units 05:24 WBC 9.0 (4.3-11.1) K/mcL Hgb 8.2 L (12.9-16.9) g/dL Hct 26.0 L (37.5-50.1) % Plt Count 66 L (140-400) K/mcL Neutrophils # 5.6 (1.6-8.9) K/mcL BMP 12/12/17 05:24 Sodium 147 H Potassium 4.1 Chloride 123 H Carbon Dioxide 19 L BUN 32 H Creatinine 1.90 H Glucose 112 H Calcium 8.6 Liver Function 12/12/17 Range/Units 05:24 Total Bilirubin 1.2 H (0.3-1.0) mg/dL AST 75 H (13-39) Units/L ALT 35 (7-52) Units/L Alkaline Phosphatase 157 H (34-104) Units/L Albumin 2.5 L (3.5-5.7) g/dL - ABG Interpretation ABG results: PT/INR, D-dimer PT 16.4 Seconds (9.4-12.1) H 12/12/17 05:24 - VTE Documentation of Mechanical Device: Intermittent pneumatic compression device Consult Discharge Plan - Plan Referrals: Ki Lewis MD [Primary Care Provider] - (REQUEST FOR F/U APPOINTMENT MADE. OFFICE WILL CALL PATIENT WITH DATE.) <Katherine Coats - Last Filed: 12/12/17 18:24> Date of Encounter: 12/12/17 - Assessment and plan (1) Cirrhosis Current Visit: Yes Status: Chronic Qualifiers: Hepatic cirrhosis type: unspecified hepatic cirrhosis Ascites presence: without ascites Qualified Code(s): K74.60 - Unspecified cirrhosis of liver (2) Hypokalemia Current Visit: Yes Status: Resolved (3) Acute kidney injury Current Visit: Yes Status: Acute (4) Pleural effusion Current Visit: Yes Status: Acute (5) Elevated troponin Current Visit: Yes Status: Acute (6) Hyperchloremic metabolic acidosis Current Visit: Yes Status: Acute (7) Dementia Current Visit: Yes Status: Chronic Qualifiers: Dementia type: Alzheimer's disease Alzheimer's disease onset: unspecified onset Dementia behavioral disturbance: without behavioral disturbance Qualified Code(s): G30.9 - Alzheimer's disease, unspecified; F02.80 - Dementia in other diseases classified elsewhere without behavioral disturbance (8) Lumbar vertebral fracture Current Visit: Yes Status: Acute Qualifiers: Encounter type: initial encounter Lumbar vertebra fracture level: L4 Fracture type: closed Fracture morphology: other fracture Qualified Code(s) : S32.048A - Other fracture of fourth lumbar vertebra, initial encounter for closed fracture (9) Acute respiratory failure with hypoxia Current Visit: Yes Status: Acute (10) Delirium Current Visit: Yes Status: Acute (11) Goals of care, counseling/discussion Current Visit: Yes Status: Acute - Time Spent With Patient Total time spent is greater than 50% in coordination of care (as documented) at patient's floor/unit and/or counseling patient: - Constitutional Vitals: Temp Pulse Resp BP Pulse Ox 98.2 F 92 18 123/65 95 12/12/17 16:52 12/12/17 16:52 12/12/17 16:52 12/12/17 16:52 12/12/17 16:52 Internal Medicine: Result - Labs CBC & Chem 7: 12/12/17 05:24 12/12/17 05:24 Labs: Short CBC 12/12/17 Range/Units 05:24 WBC 9.0 (4.3-11.1) K/mcL Hgb 8.2 L (12.9-16.9) g/dL Hct 26.0 L (37.5-50.1) % Plt Count 66 L (140-400) K/mcL Neutrophils # 5.6 (1.6-8.9) K/mcL BMP 12/12/17 05:24 Sodium 147 H Potassium 4.1 Chloride 123 H Carbon Dioxide 19 L BUN 32 H Creatinine 1.90 H Glucose 112 H Calcium 8.6 Liver Function 12/12/17 Range/Units 05:24 Total Bilirubin 1.2 H (0.3-1.0) mg/dL AST 75 H (13-39) Units/L ALT 35 (7-52) Units/L Alkaline Phosphatase 157 H (34-104) Units/L Albumin 2.5 L (3.5-5.7) g/dL - ABG Interpretation ABG results: PT/INR, D-dimer PT 16.4 Seconds (9.4-12.1) H 12/12/17 05:24 - Impressions Impressions Chest X-Ray 12/12/17 17:18 IMPRESSION: Interval placement of right pleural drainage catheter as above with significant decrease in right pleural effusion. No pneumothorax. D/ / 12/12/2017 18:20:23 Amilcar Ayala MD / [email or web address] Interpreting Provider: Amilcar Ayala MD - Attending Attestation I examined this patient and my medical decision-making was reviewed with the Resident Physician. I agree with the documented findings, disposition and treatment plan as described except to the extent set forth below.
[2017-12-12] MEDS: Lactobacillus 1 EACH CAP.SPRINK PO SCH (09:58)
[2017-12-12] MEDS: Lactulose Oral Soln 20 GM/30 ML UDC PO SCH ×3 (09:59→21:00)
[2017-12-12] MEDS: Cyanocobalamin (B-12) 1,000 MCG TABLET PO SCH (09:59)
--- NOTE | 2017-12-12 11:21 | Nephrology Progress Note ---
Date of Encounter: 12/12/17 Time of Encounter: 10:45 - Assessment and Plan (1) Acute kidney injury Current Visit: Yes Status: Acute SHAMIKA in setting of volume depletion, decreased oral intake, chronic GI losses in setting of Lactulose/cirrhosis, diuretic and Vancomycin superimposed on underlying CKD. Baseline creat 1.4-1.7. Renal fct improved 1.90. Will continue IV hydration in setting of poor oral intake. Most likely related to dementia and will need development analyst solution for nutrition. Terrell catheter placed. Avoid nephrotoxins, accurate I&O. Will continue to monitor. Subjective Interval history: Alert, repetative words. at bedside. No IV infusing at present. Objective - Vital Signs Vital signs: Vital Signs Temp Pulse Resp BP Pulse Ox 12/12/17 07:25 68 20 120/56 100 12/12/17 07:21 18 95 12/12/17 05:00 98.6 F 83 18 138/62 100 12/12/17 04:15 22 91 12/12/17 00:00 99.7 F H 123/62 12/11/17 23:38 18 92 12/11/17 21:16 16 93 12/11/17 21:00 100 F H 97 16 127/86 100 12/11/17 20:12 17 96 12/11/17 17:08 98.1 F 92 16 127/86 95 12/11/17 15:25 16 96 Intake and Output 12/11/17 12/12/17 12/12/17 23:59 07:59 15:59 Intake Total 242 / 242 610 / 610 600 / 600 Output Total 0 / 0 450 / 450 Balance 242 / 242 160 / 160 600 / 600 Intake: IV Fluids 100 / 100 610 / 610 Dextrose 5% 1,000 ML @ 100 mls/ 100 / 100 610 / 610 hr IVC .Q10H ANGELINE Rx#:[id number] Oral 142 / 142 0 / 0 600 / 600 Output: Urine 0 / 0 Catheter 450 / 450 Other: Meal Dinner Breakfast Percent of Meal Consumed 10% Stool Size Large Stool Consistency loose Stool Color Brown Weight 82 kg Patient Weight 12/12/17 23:59 Weight 82 kg - General Appearance General appearance: Present: well-developed, appears started age EENT: Present: mucous membranes moist Neck: Present: no JVD Respiratory: Present: clear Cardiology: Present: no edema, regular rate, regular rhythm Gastrointestinal: Present: normoactive bowel sounds, no tenderness Integumentary: Present: warm and dry Psychiatric: Present: cooperative - Lab 12/12/17 05:24 12/12/17 05:24 Most recent lab results Calcium 8.6 mg/dL (8.6-10.3) 12/12/17 05:24 Magnesium 2.5 mg/dL (1.6-2.6) 12/06/17 00:09 - VTE Documentation of Mechanical Device: Intermittent pneumatic compression device Consult Discharge Plan - Plan Referrals: Ki Lewis MD [Primary Care Provider] - (REQUEST FOR F/U APPOINTMENT MADE. OFFICE WILL CALL PATIENT WITH DATE.)
--- NOTE | 2017-12-12 13:42 | Palliative Progress Note ---
Date of Encounter: 12/12/17 Time of Encounter: 13:00 - Assessment and plan (1) Dementia Current Visit: No Status: Chronic Assessment and plan: Patient alert to person only. Family reports at baseline. Qualifiers: Dementia type: Alzheimer's disease Alzheimer's disease onset: late-onset Dementia behavioral disturbance: without behavioral disturbance Qualified Code (s): G30.1 - Alzheimer's disease with late onset; F02.80 - Dementia in other diseases classified elsewhere without behavioral disturbance (2) Cirrhosis Current Visit: Yes Status: Chronic Assessment and plan: Patient remains on Lactulose. Qualifiers: Hepatic cirrhosis type: unspecified hepatic cirrhosis Ascites presence: without ascites Qualified Code(s): K74.60 - Unspecified cirrhosis of liver (3) HCAP (healthcare-associated pneumonia) Current Visit: Yes Status: Acute Assessment and plan: WBC worsened to 9.0. Patient afebrile. Lungs sounds coarse. Antibiotics completed. Patient to have Pleurx catheter placed today, will have follow up CXR at that time. (4) Pleural effusion Current Visit: Yes Status: Acute Assessment and plan: Patient scheduled to have Pleurx catheter placed today. Follow Pulmonary recommendations. (5) Compression fracture of L4 lumbar vertebra Current Visit: Yes Status: Acute Assessment and plan: Patient denies pain during assessment. Patient has received 1 dose of Tramadol in last 24 hours. Continue Tramadol PRN at this time. Qualifiers: Encounter type: initial encounter Fracture type: closed Qualified Code(s) : S32.040A - Wedge compression fracture of fourth lumbar vertebra, initial encounter for closed fracture (6) Acute respiratory failure with hypoxia Current Visit: Yes Status: Acute (7) Goals of care, counseling/discussion Current Visit: Yes Status: Acute Assessment and plan: Spoke with patient's and friend. Patient's is considering having patient return to [facility] at discharge. Family meeting set for 3 pm; finalization of goals of care decisions to be made at that time. Conducted family meeting with patient's and 4 children. Family was offered to return patient skilled to ECF; family refused. Family decided to pay privately for ECF and have [facility]. [facility] needs to admit patient here and pay for transport home. CODE STATUS changed to DNR CC. Ordered Roxanol , Ativan, Zofran SL PRN for comfort. Patient will need prescriptions for discharge. Family in agreement of plan. GEORGE Emil Martinez witnessed family refusal of skilled days. - Time Spent With Patient Total time spent is greater than 50% in coordination of care (as documented) at patient's floor/unit and/or counseling patient: - Subjective Interval history: Patient resting in bed quietly upon arrival for assessment. Patient alert to person only; disoriented to place and time. Patient appears in much better mood today, reports "half and half good." Patient reports he is resting better. Patient's Jennifer and Friend Carolyne present at bedside during assessment. Patient denies pain, anxiety, nausea, or vomiting during assessment. Family reports patient getting ready to go for procedure, "pleurx catheter placement." Family meeting to occur at 3 pm at patient's bedside. - Constitutional Vitals: Abnormal lab results RBC 2.57 M/mcL (4.19-5.50) L 12/12/17 05:24 Hgb 8.2 g/dL (12.9-16.9) L 12/12/17 05:24 Hct 26.0 % (37.5-50.1) L 12/12/17 05:24 MCV 101.2 fL (83.0-100.0) H 12/12/17 05:24 MCHC 31.5 g/dL (31.6-35.5) L 12/12/17 05:24 RDW 18.6 % (11.5-14.5) H 12/12/17 05:24 Plt Count 66 K/mcL (140-400) L 12/12/17 05:24 PT 16.4 Seconds (9.4-12.1) H 12/12/17 05:24 VBG pCO2 30 mmHg (41-51) L 12/05/17 14:09 VBG pO2 199 mmHg (25-50) H 12/05/17 14:09 VBG HCO3 18 mEq/L (21-27) L 12/05/17 14:09 Sodium 147 mEq/L (136-145) H 12/12/17 05:24 Chloride 123 mEq/L (98-107) H 12/12/17 05:24 Carbon Dioxide 19 mEq/L (23-29) L 12/12/17 05:24 BUN 32 mg/dL (8-23) H 12/12/17 05:24 Creatinine 1.90 mg/dL (0.70-1.30) H 12/12/17 05:24 Est GFR ( Amer) 41 (> 60) L 12/12/17 05:24 Est GFR (Non-Af Amer) 34 (> 60) L 12/12/17 05:24 Glucose 112 mg/dL (70-105) H 12/12/17 05:24 Calculated Osmolality 312 (280-300) H 12/12/17 05:24 Total Bilirubin 1.2 mg/dL (0.3-1.0) H 12/12/17 05:24 Direct Bilirubin 0.5 mg/dL (0.0-0.2) H 12/10/17 05:24 AST 75 Units/L (13-39) H 12/12/17 05:24 Alkaline Phosphatase 157 Units/L (34-104) H 12/12/17 05:24 Troponin I 0.09 ng/mL (< 0.04) H* 12/06/17 00:09 Serum Total Protein 5.3 g/dL (6.4-8.9) L 12/12/17 05:24 Albumin 2.5 g/dL (3.5-5.7) L 12/12/17 05:24 Albumin/Globulin Ratio 0.9 (1.1-2.2) L 12/12/17 05:24 Urine Ketones Trace mg/dL (Negative) H 12/07/17 13:30 Urine Blood Small (Negative) H 12/07/17 13:30 Ur Leukocyte Esterase Trace (Negative) H 12/07/17 13:30 Ur Squamous Epith Cells Many per lpf (None-Few) H 12/07/17 13:30 Ur Culture Indicated? NO. (NO) A 12/07/17 13:30 General appearance: Present: cooperative, no acute distress - Head Head exam: Present: atraumatic, normal inspection - Eye Eye exam: Present: EOMI. Absent: periorbital swelling, periorbital tenderness Pupils: Present: normal accommodation, PERRL - ENT ENT exam: Present: mucous membranes dry - Neck Neck exam: Present: full ROM, normal inspection - Respiratory Respiratory exam: Present: rhonchi - Cardiovascular Cardiovascular exam: Present: +S1, +S2 - GI/Abdominal GI/Abdominal exam: Present: normal bowel sounds, soft. Absent: tenderness - Rectal Rectal exam: Present: deferred - Extremities Exam Extremities exam: Present: normal inspection. Absent: pedal edema - Neurological Exam Neurological exam: Present: alert, altered, strengths equal and symetr throughout. Absent: oriented X3 - Psychiatric Psychiatric exam: Present: normal affect, normal mood. Absent: anxious - Skin Skin exam: Present: dry, intact, warm Palliative Quality Palliative Quality: Screen for Code Status: Yes, Screen for Goals of Care: Yes, Screen for Pain: Yes, If Pain Regimen Started, Initiate Bowel Regimen: NA, Screen for Nausea/Vomitting: Yes - Labs CBC & Chem 7: 12/12/17 05:24 12/12/17 05:24 Labs: Laboratory Results - last 24 hr 12/12/17 12/12/17 12/12/17 05:24 05:24 05:24 WBC 9.0 RBC 2.57 L Hgb 8.2 L Hct 26.0 L MCV 101.2 H MCH 31.9 MCHC 31.5 L RDW 18.6 H Plt Count 66 L MPV 10.3 Immature Gran % 1.2 Seg Neutrophils % 61.8 Lymphocytes % 16.4 Monocytes % 13.9 Eosinophils % 6.3 Basophils % 0.4 Neutrophils # 5.6 Lymphocytes # 1.5 Monocytes # 1.3 Eosinophils # 0.6 Basophils # 0.0 Immature Plt Fraction 2.7 PT 16.4 H INR 1.5 APTT 34.6 Sodium 147 H Potassium 4.1 Chloride 123 H Carbon Dioxide 19 L BUN 32 H Creatinine 1.90 H Est GFR ( Amer) 41 L Est GFR (Non-Af Amer) 34 L BUN/Creatinine Ratio 17 Glucose 112 H Calculated Osmolality 312 H Calcium 8.6 Total Bilirubin 1.2 H AST 75 H ALT 35 Alkaline Phosphatase 157 H Serum Total Protein 5.3 L Albumin 2.5 L Globulin 2.8 Albumin/Globulin Ratio 0.9 L - ABG Interpretation ABG results: PT/INR, D-dimer PT 16.4 Seconds (9.4-12.1) H 12/12/17 05:24 Consult Discharge Plan - Plan Referrals: Ki Lewis MD [Primary Care Provider] - (REQUEST FOR F/U APPOINTMENT MADE. OFFICE WILL CALL PATIENT WITH DATE.)
[2017-12-12] MEDS ORDERED: OXYCODONE Oral CONC 10 MG/0.5 ML ORAL.SYG SL ONE ×2 (15:07)
[2017-12-12] MEDS ORDERED: *HR* LORazepam Oral Conc 2 MG/ML SL PRN (16:15)
[2017-12-12] MEDS ORDERED: Ondansetron ODT 4 MG TAB.RAPDIS SL PRN (16:17)
[2017-12-12] MEDS ORDERED: *HR* FentaNYL (PF) 100 MCG/2 ML VIAL IVP ONE (16:20)
[2017-12-12] MEDS: risperiDONE 0.25 MG TABLET PO SCH (21:00)
[2017-12-13] MEDS: Ipratropium/Albuterol Neb 3 ML IH SCH ×4 (04:21→15:29)
[2017-12-13 04:26] LABS: Hematocrit 27.1 % (37.5-50.1)
[2017-12-13 04:28] LABS: Basophils % 0.2 %; Eosinophils # 0.3 K/mcL (0.0-0.6); Eosinophils % 2.6 %; Hemoglobin 8.7 g/dL (12.9-16.9); Immature Granulocytes % 1.2 % (0-4); Immature Platelets 3.4 % (1.1-6.1); Lymphocytes % 7.7 %; Mean Corpuscular HGB Conc 32.1 g/dL (31.6-35.5); Mean Corpuscular Hemoglobin 33.1 pg (28.0-33.3); Mean Platelet Volume 10.9 fL (9.4-12.4); Monocytes # 1.2 K/mcL (0.0-1.3); Monocytes % 9.4 %; Neutrophils # 10.2 K/mcL (1.6-8.9); Red Blood Count 2.63 M/mcL (4.19-5.50); Red Cell Distribution Width 18.6 % (11.5-14.5); Segmented Neutrophils % 78.9 %
[2017-12-13 04:29] LABS: Platelet Count 64 K/mcL (140-400)
[2017-12-13 04:52] LABS: Calcium 8.6 mg/dL (8.6-10.3); Potassium 5.4 mEq/L (3.5-5.1)
--- NOTE | 2017-12-13 07:24 | Palliative Progress Note ---
Date of Encounter: 12/13/17 Time of Encounter: 07:05 - Assessment and plan (1) Acute kidney injury Current Visit: Yes Status: Acute Assessment and plan: GFR about the same for the last 3 days, 31 today. Her per hospitalist team (2) Delirium Current Visit: Yes Status: Acute Assessment and plan: Undoubtedly superimposed on dementia. He treated for pneumonia and also has pain probably from febrile fracture 2 new current treatment (3) Dementia Current Visit: No Status: Chronic Assessment and plan: Baseline dementia with superimposed delirium treat for delirium Qualifiers: Dementia type: Alzheimer's disease Alzheimer's disease onset: late-onset Dementia behavioral disturbance: without behavioral disturbance Qualified Code (s): G30.1 - Alzheimer's disease with late onset; F02.80 - Dementia in other diseases classified elsewhere without behavioral disturbance (4) Goals of care, counseling/discussion Current Visit: Yes Status: Acute Assessment and plan: Family discussion yesterday patient now DNR CC, plan is for patient to be discharged with [place] [facility], however I am not clear on the timing of this. We will check with social work. (5) HCAP (healthcare-associated pneumonia) Current Visit: Yes Status: Acute Assessment and plan: White count has increased to 12.9, patient has completed antibiotics oral effusion was evacuated. Plan per hospitalist team (6) Lumbar vertebral fracture Current Visit: Yes Status: Acute Assessment and plan: Pain medications as needed, have noted the patient has an allergy to oxycodone, however in the notes this is merely nausea which is a side effect not an allergy. The patient's problems with his liver as well as his kidneys and concerned about the oxycodone since his morphine. Patient currently has morphine ordered but has required none. The patient may very well have trouble with nausea in with any opioid we will continue to watch closely. The patient transitions to hospice will have to watch this also very closely therefore make sure the patient is discharged with antiemetics. Qualifiers: Encounter type: initial encounter Lumbar vertebra fracture level: L4 Fracture type: closed Fracture morphology: other fracture Qualified Code(s) : S32.048A - Other fracture of fourth lumbar vertebra, initial encounter for closed fracture - Time Spent With Patient Total time spent is greater than 50% in coordination of care (as documented) at patient's floor/unit and/or counseling patient: - Subjective Interval history: pt is softly moaning, per nursing that is present this is usual for him no family present he does respond to voice but has no compalints - Constitutional Vitals: Abnormal lab results WBC 12.9 K/mcL (4.3-11.1) H 12/13/17 03:32 RBC 2.63 M/mcL (4.19-5.50) L 12/13/17 03:32 Hgb 8.7 g/dL (12.9-16.9) L 12/13/17 03:32 Hct 27.1 % (37.5-50.1) L 12/13/17 03:32 MCV 103.0 fL (83.0-100.0) H 12/13/17 03:32 RDW 18.6 % (11.5-14.5) H 12/13/17 03:32 Plt Count 64 K/mcL (140-400) L 12/13/17 03:32 Neutrophils # 10.2 K/mcL (1.6-8.9) H 12/13/17 03:32 PT 16.4 Seconds (9.4-12.1) H 12/12/17 05:24 VBG pCO2 30 mmHg (41-51) L 12/05/17 14:09 VBG pO2 199 mmHg (25-50) H 12/05/17 14:09 VBG HCO3 18 mEq/L (21-27) L 12/05/17 14:09 Sodium 146 mEq/L (136-145) H 12/13/17 03:32 Potassium 5.4 mEq/L (3.5-5.1) H D 12/13/17 03:32 Chloride 122 mEq/L (98-107) H 12/13/17 03:32 Carbon Dioxide 20 mEq/L (23-29) L 12/13/17 03:32 BUN 36 mg/dL (8-23) H 12/13/17 03:32 Creatinine 2.04 mg/dL (0.70-1.30) H 12/13/17 03:32 Est GFR ( Amer) 38 (> 60) L 12/13/17 03:32 Est GFR (Non-Af Amer) 31 (> 60) L 12/13/17 03:32 Glucose 106 mg/dL (70-105) H 12/13/17 03:32 Calculated Osmolality 311 (280-300) H 12/13/17 03:32 Total Bilirubin 1.2 mg/dL (0.3-1.0) H 12/12/17 05:24 Direct Bilirubin 0.5 mg/dL (0.0-0.2) H 12/10/17 05:24 AST 75 Units/L (13-39) H 12/12/17 05:24 Alkaline Phosphatase 157 Units/L (34-104) H 12/12/17 05:24 Troponin I 0.09 ng/mL (< 0.04) H* 12/06/17 00:09 Serum Total Protein 5.3 g/dL (6.4-8.9) L 12/12/17 05:24 Albumin 2.5 g/dL (3.5-5.7) L 12/12/17 05:24 Albumin/Globulin Ratio 0.9 (1.1-2.2) L 12/12/17 05:24 Urine Ketones Trace mg/dL (Negative) H 12/07/17 13:30 Urine Blood Small (Negative) H 12/07/17 13:30 Ur Leukocyte Esterase Trace (Negative) H 12/07/17 13:30 Ur Squamous Epith Cells Many per lpf (None-Few) H 12/07/17 13:30 Ur Culture Indicated? NO. (NO) A 12/07/17 13:30 General appearance: Present: no acute distress (But is softly moaning, this apparently is normal for him per the nursing staff) - Head Head exam: Present: atraumatic, normal inspection - ENT ENT exam: Present: mucous membranes moist - Respiratory Respiratory exam: Present: decreased breath sounds (Pleurx on right side) - Cardiovascular Cardiovascular exam: Present: RRR - GI/Abdominal GI/Abdominal exam: Present: normal bowel sounds, soft. Absent: tenderness - Extremities Exam Extremities exam: Absent: tenderness - Neurological Exam Neurological exam: Present: alert (Awakens easily). Absent: oriented X3 - Psychiatric Psychiatric exam: Absent: agitated, anxious - Skin Skin exam: Present: dry, warm Palliative Quality Palliative Quality: Screen for Code Status: Yes, Screen for Goals of Care: Yes, Screen for Pain: Yes, If Pain Regimen Started, Initiate Bowel Regimen: NA, Screen for Nausea/Vomitting: Yes Code Status: 12/12/17 16:14 DNR [Resuscitation Status: Active] [RES] Routine Comment: Resuscitation Status: DNR-Comfort Care - Labs CBC & Chem 7: 12/13/17 03:32 12/13/17 03:32 Labs: Laboratory Results - last 24 hr 12/13/17 12/13/17 03:32 03:32 WBC 12.9 H RBC 2.63 L Hgb 8.7 L Hct 27.1 L MCV 103.0 H MCH 33.1 MCHC 32.1 RDW 18.6 H Plt Count 64 L MPV 10.9 Immature Gran % 1.2 Seg Neutrophils % 78.9 Lymphocytes % 7.7 Monocytes % 9.4 Eosinophils % 2.6 Basophils % 0.2 Neutrophils # 10.2 H Lymphocytes # 1.0 Monocytes # 1.2 Eosinophils # 0.3 Basophils # 0.0 Immature Plt Fraction 3.4 Sodium 146 H Potassium 5.4 H D Chloride 122 H Carbon Dioxide 20 L BUN 36 H Creatinine 2.04 H Est GFR ( Amer) 38 L Est GFR (Non-Af Amer) 31 L BUN/Creatinine Ratio 18 Glucose 106 H Calculated Osmolality 311 H Calcium 8.6 - Impressions Impressions Chest X-Ray 12/12/17 17:18 IMPRESSION: Interval placement of right pleural drainage catheter as above with significant decrease in right pleural effusion. No pneumothorax. D/ / 12/12/2017 18:20:23 Amilcar Ayala MD / [email or web address] Interpreting Provider: Amilcar Ayala MD - ABG Interpretation ABG results: PT/INR, D-dimer PT 16.4 Seconds (9.4-12.1) H 12/12/17 05:24 Consult Discharge Plan - Plan Referrals: Ki Lewis MD [Primary Care Provider] - (REQUEST FOR F/U APPOINTMENT MADE. OFFICE WILL CALL PATIENT WITH DATE.)
--- NOTE | 2017-12-13 07:27 | Internal Med Progress Note ---
Date of Encounter: 12/13/17 Time of Encounter: 07:27 - Assessment and plan (1) Acute respiratory failure with hypoxia Current Visit: Yes Status: Acute Assessment and plan: Patient presented with acute hypoxic resp failure secondary to right sided pleural effusion s/p thoracentensis with 1.5 L fluid drained 12/10 CXR 12/11 demonstrated reaccumulated right effusion Cytology negative Pt not currently in respiratory distress PleurX catheter placed yesterday on the right. Plan: Pulmonolgy consulted Continue to monitor Oxygen as needed (2) Pleural effusion Current Visit: Yes Status: Acute Assessment and plan: Pt had thoracentesis 12/10 with 1.5L clear yellow fluid drained, cytology negative. Pleural LDH 33, protein <3.0. Serum LDH 189, serum protein 5.5. CXR 12/11 demonstrated R sided pleural effusion that has increased in volume, with progressive left lung opacities reflecting worsening edema. Suspect transudate due to cirrhosis Lasix on hold secondary to SHAMIKA PleruX catheter placed by Pulmonology 12/12 with 2L serous fluid drained. CXR improved. Plan: Continue to hold IVF as able Pulmonology consulted, appreciate their input and recommendations (3) Acute kidney injury Current Visit: Yes Status: Acute Assessment and plan: SHAMIKA superimposed on CKDIII, Likely pre-renal, due to diarrhea, GI loss, poor oral intake with concomitant use of diuretics Renal US unremarkable Renal function slightly improved, with IVF, s/p albumin 12/12 SCr 1.90 Hypernatremia slightly improved at 146 Plan: Continue to hold diuretcs Continue to monitor Avoid nephrotoxins Nephrology following, appreciate their recommendations. (4) Cirrhosis Current Visit: Yes Status: Chronic Assessment and plan: PAIGE cirrhosis Pt has required paracentesis in the past. Pt abd soft, mild distension, small fluid wave. Ammonia is 40 on admission Repeat done 12/10 is 33 Plan: Continue xifaxan Continue to hold aldactone Continue to hold lasix due to SHAMIKA on CKD Continue lactulose at lower dose for goal BM of 2-3 times daily Qualifiers: Hepatic cirrhosis type: unspecified hepatic cirrhosis Ascites presence: without ascites Qualified Code(s): K74.60 - Unspecified cirrhosis of liver (5) Hyperchloremic metabolic acidosis Current Visit: Yes Status: Acute Assessment and plan: Improving (6) Elevated troponin Current Visit: Yes Status: Acute Assessment and plan: Likely demand ischemia in setting of SHAMIKA and pleural effusion. Trop 0.10-0.10-0.09 ECHO from 07/2017 showed preserved EF with MV prolapse moderate no chest pain Plan: Treat underlying conditions division chief (7) Dementia Current Visit: Yes Status: Chronic Assessment and plan: Ooriented to self only at baseline Plan: Continue home meds Qualifiers: Dementia type: Alzheimer's disease Alzheimer's disease onset: unspecified onset Dementia behavioral disturbance: without behavioral disturbance Qualified Code(s): G30.9 - Alzheimer's disease, unspecified; F02.80 - Dementia in other diseases classified elsewhere without behavioral disturbance (8) Lumbar vertebral fracture Current Visit: Yes Status: Acute Assessment and plan: 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 No witnessed or known hx of fall Spine surgery eval noted,recommended head CT-no acute abnormality Plan: Continue tylenol, tramadol prn Will need PT Qualifiers: Encounter type: initial encounter Lumbar vertebra fracture level: L4 Fracture type: closed Fracture morphology: other fracture Qualified Code(s) : S32.048A - Other fracture of fourth lumbar vertebra, initial encounter for closed fracture (9) Delirium Current Visit: Yes Status: Acute Assessment and plan: Patient with dementia, oriented to self only at baseline Acute delirium resolved. Plan: Continue risperidone HS Avoid benzodiazepines (10) Goals of care, counseling/discussion Current Visit: Yes Status: Acute Assessment and plan: patient with advanced dementia, cirrhosis, hydrothorax, poor oral intake Now hypernatremic Family meeting was yesterday afternoon--pt now DNR-CC, plan to discharge to hospice Plan: Palliative consulted for goals of care discussion Plan based on decision of (POA) Discharge to hospice (11) Hypokalemia Current Visit: Yes Status: Resolved Assessment and plan: resolved, pt not hyperkalemic this AM at 5.4 (12) Leukocytosis Current Visit: Yes Status: Acute - Time Spent With Patient Total time spent is greater than 50% in coordination of care (as documented) at patient's floor/unit and/or counseling patient: - Subjective Interval history: Pt seen and examined. He is resting comfortably in bed and follows basic commands. He had the pleurX catheter placed yesterday with 2L fluid removed. Pt appears more comfortable this morning, denies SOB and is not in respiratory distress. Family meeting occurred yesterday afternoon--pt now DNR-CC with plans to discharge to hospice. - Constitutional Vitals: Temp Pulse Resp BP Pulse Ox 99.5 F 91 16 102/42 95 12/13/17 07:13 12/13/17 07:13 12/13/17 07:13 12/13/17 07:13 12/13/17 07:13 General appearance: Present: A&O X 1 (confused, groaning), pleasant, no acute distress - Head Head exam: Present: atraumatic, normocephalic - Eye Eye exam: Present: PERRL, conjuntiva pink, sclera anicteric Pupils: Present: PERRL - Neck Neck exam general surgery: Present: supple, trachea midline. Absent: lymphadenopathy - Respiratory Respiratory exam: Present: decreased breath sounds, rales, rhonchi. Absent: accessory muscle use, respiratory distress, wheezes, tachypnea - Cardiovascular Cardiovascular exam: Present: RRR, systolic murmur - GI/Abdominal GI/Abdominal exam: Present: normal bowel sounds, soft, no peritoneal signs. Absent: distended, tenderness - Extremities Exam Extremities exam: Present: warm, radial pulses palpable and symmetrical. Absent : calf tenderness, cyanotic, pedal edema - Back Exam Additional comments: pleurX catheter in place on right at intercostal space 6, dressing clean, dry and intact - Neurological Exam Neurological exam: Present: alert. Absent: speech deficit - Expanded Neurological Exam Patient oriented to: Present: person. Absent: place, time - Psychiatric Psychiatric exam: Present: normal affect, normal mood - Skin Skin exam: Present: dry, intact Internal Medicine: Result - Labs CBC & Chem 7: 12/13/17 03:32 12/13/17 03:32 Labs: Short CBC 12/13/17 Range/Units 03:32 WBC 12.9 H (4.3-11.1) K/mcL Hgb 8.7 L (12.9-16.9) g/dL Hct 27.1 L (37.5-50.1) % Plt Count 64 L (140-400) K/mcL Neutrophils # 10.2 H (1.6-8.9) K/mcL BMP 12/13/17 03:32 Sodium 146 H Potassium 5.4 H D Chloride 122 H Carbon Dioxide 20 L BUN 36 H Creatinine 2.04 H Glucose 106 H Calcium 8.6 - ABG Interpretation ABG results: PT/INR, D-dimer PT 16.4 Seconds (9.4-12.1) H 12/12/17 05:24 - Impressions Impressions Chest X-Ray 12/12/17 17:18 IMPRESSION: Interval placement of right pleural drainage catheter as above with significant decrease in right pleural effusion. No pneumothorax. D/ / 12/12/2017 18:20:23 Amilcar Ayala MD / lgray Interpreting Provider: Amilcar Ayala MD - VTE Documentation of Mechanical Device: Intermittent pneumatic compression device Consult Discharge Plan - Plan Referrals: Ki Lewis MD [Primary Care Provider] - (REQUEST FOR F/U APPOINTMENT MADE. OFFICE WILL CALL PATIENT WITH DATE.)
--- NOTE | 2017-12-13 08:53 | Nephrology Progress Note ---
Date of Encounter: 12/13/17 Time of Encounter: 08:10 - Assessment and Plan (1) Acute kidney injury Current Visit: Yes Status: Acute SHAMIKA in setting of volume depletion, decreased oral intake, chronic GI losses in setting of Lactulose/cirrhosis, diuretic and Vancomycin superimposed on underlying CKD. Baseline creat 1.4-1.7. Renal fct stable/platued, creat 2.04. Recommend IV hydration. Most likely related to dementia and will need long-term solution for nutrition. Terrell catheter placed. Avoid nephrotoxins, accurate I& O. Will continue to monitor. Subjective Interval history: Sleeping, arouses easily. Continuous humming/moaning. Objective - Vital Signs Vital signs: Vital Signs Temp Pulse Resp BP Pulse Ox 12/13/17 07:56 16 98 12/13/17 07:13 99.5 F 91 16 102/42 95 12/13/17 04:54 97.7 F 97 18 111/50 96 12/13/17 04:21 20 92 12/13/17 01:06 98.3 F 95 20 120/61 96 12/12/17 23:43 20 99 12/12/17 21:14 97.6 F 93 18 97/73 97 12/12/17 20:14 18 98 12/12/17 16:52 98.2 F 92 18 123/65 95 12/12/17 15:39 18 94 12/12/17 15:00 98.8 F 85 19 85/47 95 12/12/17 11:19 18 96 Intake and Output 12/12/17 12/13/17 12/13/17 23:59 07:59 15:59 Intake Total 0 / 0 0 / 0 0 / 0 Output Total 300 / 300 125 / 125 Balance -300 / -300 -125 / -125 0 / 0 Intake: Oral 0 / 0 0 / 0 0 / 0 Output: Urine 300 / 300 Catheter 125 / 125 Other: Meal NPO Breakfast Percent of Meal Consumed 0% Weight 81.6 kg Patient Weight 12/13/17 23:59 Weight 81.6 kg - General Appearance General appearance: Present: well-developed, appears started age, chronically ill EENT: Present: mucous membranes moist Neck: Present: no JVD Respiratory: Present: clear Additional Comments: diminished Cardiology: Present: no edema, regular rate, regular rhythm Gastrointestinal: Present: hypoactive bowel sounds, no tenderness Integumentary: Present: warm and dry Psychiatric: Present: cooperative - Lab 12/13/17 03:32 12/13/17 03:32 Most recent lab results Calcium 8.6 mg/dL (8.6-10.3) 12/13/17 03:32 Magnesium 2.5 mg/dL (1.6-2.6) 12/06/17 00:09 - VTE Documentation of Mechanical Device: Intermittent pneumatic compression device Consult Discharge Plan - Plan Referrals: Ki Lewis MD [Primary Care Provider] - (REQUEST FOR F/U APPOINTMENT MADE. OFFICE WILL CALL PATIENT WITH DATE.)
[2017-12-13] MEDS: MORPHINE SUL Oral CONC 10 MG/0.5 ML ORAL.SYG SL PRN ×2 (09:51→19:18)
[2017-12-13] MEDS: Lactobacillus 1 EACH CAP.SPRINK PO SCH (10:08)
[2017-12-13] MEDS: Lactulose Oral Soln 20 GM/30 ML UDC PO SCH ×2 (10:08→17:59)
[2017-12-13] MEDS: Cyanocobalamin (B-12) 1,000 MCG TABLET PO SCH (10:09)
--- NOTE | 2017-12-13 14:10 | Event Note ---
Date of Encounter: 12/13/17 Time of Encounter: 14:08 Hospice chief medical director certification of terminal illness: Hospice benefit. Start: 12/13/2017 Hospice benefit. In: +90 days Palliative performance scale: 20-25% History: Patient with history of COPD, cirrhosis INR of 1.5 as well as an albumin of 2.5 in addition to this having dementia. She and family wish to have no further aggressive care given this combination of factors and no aggressive care I believe that These findings support a life expectancy of 6 months or less. I attest that I have compose the above narrative based on my review of the patient's medical records, and or on my examination of the patient. Kd Gray M.D. Associate certified medical technician assistant. [facility]
--- NOTE | 2017-12-13 14:50 | Physician Discharge Referral ---
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 - Diagnosis (1) Acute respiratory failure with hypoxia Priority: Primary Status: Acute (2) Pleural effusion Priority: Secondary Status: Acute (3) Acute kidney injury Priority: Secondary Status: Acute (4) Cirrhosis Priority: Secondary Status: Chronic (5) Hyperchloremic metabolic acidosis Priority: Secondary Status: Acute (6) Elevated troponin Priority: Secondary Status: Resolved (7) Dementia Priority: Secondary Status: Chronic (8) Lumbar vertebral fracture Priority: Secondary Status: Acute (9) Delirium Priority: Secondary Status: Resolved (10) Goals of care, counseling/discussion Priority: Secondary Status: Acute (11) Hypokalemia Priority: Secondary Status: Resolved (12) Leukocytosis Priority: Secondary Status: Acute - Respiratory Orders Smoking Cessation: Smoking cessation has been advised. For more information, call the [place] Tobacco Quit Line at 7-974-RWWQ-NOW. - Diet/Nutrition Diet/Nutrition: List: Honey thickened - Activity Activity Orders: Bedrest - Transfer Medications Prescriptions: Promethazine [Phenergan] 25 mg RC Q6HR PRN #12 supp.rect PRN Reason: nausea vomiting Haloperidol Oral Conc [Haldol] 2 mg SL Q6H #30 mls LORazepam Oral Conc [Ativan Oral Conc] 1 mg PO Q4H PRN 7 Days #30 mls PRN Reason: Anxiety Morphine Oral CONC [Roxanol] 0.25 ml SL Q4H PRN 7 Days #30 ml PRN Reason: sob or pain Tramadol HCl [Ultram] 50 mg PO BID PRN 10 Days #20 tab PRN Reason: Pain Home Medications: Lactobacillus Acidophilus/Pect [Acidophilus-Pectin Capsule] 1 each PO DAILY 08/09 [History] Cyanocobalamin (Vitamin B-12) [Vitamin B12] 1,000 mcg PO DAILY 04/27/15 [History ] Furosemide [Lasix] 40 mg PO BID 07/29/15 [History] Donepezil HCl [Aricept] 10 mg PO HS 07/27/17 [History] Rifaximin [Xifaxan] 550 mg PO BID #60 tablet 08/03/17 [Rx] Escitalopram Oxalate 5 mg PO DAILY 09/05/17 [History] Lactulose 45 gm PO QID 09/05/17 [History] Gabapentin [Neurontin] 300 mg PO BID #10 capsule 09/10/17 [Rx] Pantoprazole Sodium [Protonix] 40 mg PO DAILY 12/05/17 [History] Haloperidol Oral Conc [Haldol] 2 mg SL Q6H #30 mls 12/13/17 [Rx] LORazepam Oral Conc [Ativan Oral Conc] 1 mg PO Q4H PRN 7 Days #30 mls 12/13/17 [ Rx] Morphine Oral CONC [Roxanol] 0.25 ml SL Q4H PRN 7 Days #30 ml 12/13/17 [Rx] Promethazine [Phenergan] 25 mg RC Q6HR PRN #12 supp.rect 12/13/17 [Rx] Tramadol HCl [Ultram] 50 mg PO BID PRN 10 Days #20 tab 12/13/17 [Rx] Allergies/Adverse Reactions: 3 Allergy/AdvReac Type Severity Reaction Status Date / Time acetaminophen [From Percocet] Allergy Nausea Verified 09/05/17 13:59 ciprofloxacin [From Cipro] AdvReac See Verified 09/05/17 13:59 Comments metronidazole [From Flagyl] AdvReac Dizziness Verified 09/05/17 13:59 Oxycodone [From Percocet] AdvReac Nausea Verified 09/05/17 13:59 Certification: Further, I certify that my clinical findings support that this patient is homebound (i.e. absences from home require considerable and taxing effort and are for medical reasons or scientologist services or infrequently or short duration when for other reasons) because: Homebound Reason: Patient requires assistance of a person or device to safely leave home, Altered mental status requiring supervision when leaving home, Severity of cardiac or pulmonary status limits activity tolerance Attestation: My signature below is to certify that this patient is under my care and that I, or nurse practitioner, or a physician's assistant hall director working with me, has a face-to -face encounter with this patient.
--- NOTE | 2017-12-13 14:53 | Discharge Summary ---
<Sara Aaron - Last Filed: 12/13/17 15:23> - NOTES TO OUTPATIENT PROVIDER Notes to Outpatient Provider: Patient discharged to Hospice. Code Status changed to DNR-CC. Had pleurx catheter placed Orders not resulted at time of discharge: Pending orders 12/14/17 04:00 Basic Metabolic Panel AM 0400 CBC [Complete Blood Count] [HEME] AM 0400 Date of Encounter: 12/13/17 Time of Encounter: 14:51 - Discharge Diagnosis (1) Acute respiratory failure with hypoxia Priority: Primary Status: Acute (2) Pleural effusion Priority: Secondary Status: Acute (3) Acute kidney injury Priority: Secondary Status: Acute (4) Cirrhosis Priority: Secondary Status: Chronic Qualifiers: Hepatic cirrhosis type: unspecified hepatic cirrhosis Ascites presence: without ascites Qualified Code(s): K74.60 - Unspecified cirrhosis of liver (5) Hyperchloremic metabolic acidosis Priority: Secondary Status: Acute (6) Elevated troponin Priority: Secondary Status: Resolved (7) Dementia Priority: Secondary Status: Chronic Qualifiers: Dementia type: Alzheimer's disease Alzheimer's disease onset: unspecified onset Dementia behavioral disturbance: without behavioral disturbance Qualified Code(s): G30.9 - Alzheimer's disease, unspecified; F02.80 - Dementia in other diseases classified elsewhere without behavioral disturbance (8) Lumbar vertebral fracture Priority: Secondary Status: Acute Qualifiers: Encounter type: initial encounter Lumbar vertebra fracture level: L4 Fracture type: closed Fracture morphology: other fracture Qualified Code(s) : S32.048A - Other fracture of fourth lumbar vertebra, initial encounter for closed fracture (9) Delirium Priority: Secondary Status: Resolved (10) Goals of care, counseling/discussion Priority: Secondary Status: Acute (11) Hypokalemia Priority: Secondary Status: Resolved (12) Leukocytosis Priority: Secondary Status: Acute Qualifiers: Leukocytosis type: unspecified Qualified Code(s): D72.829 - Elevated white blood cell count, unspecified Hospital course: Mr. Meneses is a 82 year old male who presented to [facility] ED 12/05 from SNF where he was found to have hyperchloremic metablic acidosis. The pt had decreased PO intake, vomiting and diarrhea in the days leading up to admission. He was noted on CXR to have a right pleural efusion. CT chest demonstrated a large right pleural effusion with a near complete collapse of the right lower lobe, with partial collapse of the right middle and right upper lobes. Pt had thoracentesis 12/10 with 1.5 L of fluid removed. Fluid reaccumulated 12/11 and Pulmonology was consulted. The patient had PleurX catheter placed in right 6th intercostal space with 2L of fluid removed at that time. Pt had SHAMIKA and was evaluated by nephrology. SHAMIKA resolving with IV hydration. Pt was also found to have a L4 lumbar compression fracture. He was evaluated by pain management and deemed not a surgical candidate, pain has been managed medically. Palliative was consulted and after a family meeting the patient's code status was changed to DNR-CC. The family decided to proceed with hospice placement at discharge. Pt discharged to hospice in stable condition. - Time Spent with Patient Total time spent providing and/or coordinating discharge services: - Discharge Medications Prescriptions: Promethazine [Phenergan] 25 mg RC Q6HR PRN #12 supp.rect PRN Reason: nausea vomiting Haloperidol Oral Conc [Haldol] 2 mg SL Q6H #30 mls LORazepam Oral Conc [Ativan Oral Conc] 1 mg PO Q4H PRN 7 Days #30 mls PRN Reason: Anxiety Morphine Oral CONC [Roxanol] 0.25 ml SL Q4H PRN 7 Days #30 ml PRN Reason: sob or pain Tramadol HCl [Ultram] 50 mg PO BID PRN 10 Days #20 tab PRN Reason: Pain Home Medications: Lactobacillus Acidophilus/Pect [Acidophilus-Pectin Capsule] 1 each PO DAILY 08/09 [History] Cyanocobalamin (Vitamin B-12) [Vitamin B12] 1,000 mcg PO DAILY 04/27/15 [History ] Furosemide [Lasix] 40 mg PO BID 07/29/15 [History] Donepezil HCl [Aricept] 10 mg PO HS 07/27/17 [History] Rifaximin [Xifaxan] 550 mg PO BID #60 tablet 08/03/17 [Rx] Escitalopram Oxalate 5 mg PO DAILY 09/05/17 [History] Lactulose 45 gm PO QID 09/05/17 [History] Gabapentin [Neurontin] 300 mg PO BID #10 capsule 09/10/17 [Rx] Pantoprazole Sodium [Protonix] 40 mg PO DAILY 12/05/17 [History] Haloperidol Oral Conc [Haldol] 2 mg SL Q6H #30 mls 12/13/17 [Rx] LORazepam Oral Conc [Ativan Oral Conc] 1 mg PO Q4H PRN 7 Days #30 mls 12/13/17 [ Rx] Morphine Oral CONC [Roxanol] 0.25 ml SL Q4H PRN 7 Days #30 ml 12/13/17 [Rx] Promethazine [Phenergan] 25 mg RC Q6HR PRN #12 supp.rect 12/13/17 [Rx] Tramadol HCl [Ultram] 50 mg PO BID PRN 10 Days #20 tab 12/13/17 [Rx] Allergies/Adverse Reactions: 3 Allergy/AdvReac Type Severity Reaction Status Date / Time acetaminophen [From Percocet] Allergy Nausea Verified 09/05/17 13:59 ciprofloxacin [From Cipro] AdvReac See Verified 09/05/17 13:59 Comments metronidazole [From Flagyl] AdvReac Dizziness Verified 09/05/17 13:59 Oxycodone [From Percocet] AdvReac Nausea Verified 09/05/17 13:59 Date of admission: 12/10/17 09:58 Primary care physician: Ki Lewis MD Consults: 12/10/17 09:59 Consult to Interventional Radiology [CONS] Stat Consulting Provider: Radiology Interventional [facility] Reason for Consult: R pleural effusion Call Completed: Yes 12/10/17 13:40 Consult to Palliative Care [CONS] Routine Comment: Consulting Provider: Palliative Care [place] Reason for Consult: Goals of care Call Completed: Yes 12/11/17 10:06 Consult to Pulmonology [CONS] Routine Consulting Provider: Pulm Crit Care [facility] Sleep Jessica Reason for Consult: recurring right pleural effusion in setting of decomplensated liver cirrhosis Time Notified: 10:07 Call Completed: Yes Discharging clinician: Sara Aaron Anticipated date of discharge: 12/13/17 - Constitutional Vitals: Temp Pulse Resp BP Pulse Ox 98.4 F 90 18 111/74 100 12/13/17 11:22 12/13/17 11:22 12/13/17 11:22 12/13/17 11:22 12/13/17 11:22 General appearance: Present: A&O X 1 (confused, groaning), pleasant, no acute distress - Head Head exam: Present: atraumatic, normocephalic - Eye Eye exam: Present: PERRL, conjuntiva pink, sclera anicteric Pupils: Present: PERRL - Neck Neck exam general surgery: Present: supple, trachea midline. Absent: lymphadenopathy - Respiratory Respiratory exam: Present: rales. Absent: respiratory distress, wheezes, tachypnea Additional comments: pleurx catheter right posterior 6th intercostal space, dressing clean and dry. - Cardiovascular Cardiovascular exam: Present: RRR, +S1, +S2, systolic murmur - GI/Abdominal GI/Abdominal exam: Present: normal bowel sounds, soft, no peritoneal signs. Absent: distended, tenderness - Extremities Exam Extremities exam: Present: warm, radial pulses palpable and symmetrical. Absent : calf tenderness, cyanotic, pedal edema - Neurological Exam Neurological exam: Absent: facial droop, speech deficit - Expanded Neurological Exam Patient oriented to: Present: person. Absent: place, time - Psychiatric Psychiatric exam: Present: normal affect, normal mood - Skin Skin exam: Present: dry, intact - Patient Status Disposition: Hospice - Medical Facility Condition: Fair Functional capacity at discharge: bed bound Overall status at discharge: patient is not back to baseline - Discharge Instructions Instructions: Lorazepam (By mouth), Promethazine (By mouth), Morphine, Rapid Release (By mouth), Haloperidol (Injection), Cirrhosis (DC), Cirrhosis (GEN), Gallstones (DC), Gallstones (GEN), Acute Kidney Injury (DC), Acute Kidney Injury (GEN), Anemia (GEN), Fall Prevention (DC), Fall Prevention (GEN), Pneumonia (DC) Follow Up With: Ki Lewis MD [Primary Care Provider] - 12/21/17 3:00 pm () - Diet and Activity Activity: increase activity as tolerated Diet: other (honey thickened) - VTE Documentation of Mechanical Device: Intermittent pneumatic compression device <Katherine Coats - Last Filed: 12/13/17 15:59> Orders not resulted at time of discharge: Pending orders 12/14/17 04:00 Basic Metabolic Panel AM 0400 CBC [Complete Blood Count] [HEME] AM 0400 Date of Encounter: 12/13/17 - Discharge Diagnosis (1) Cirrhosis Status: Chronic Qualifiers: Hepatic cirrhosis type: unspecified hepatic cirrhosis Ascites presence: without ascites Qualified Code(s): K74.60 - Unspecified cirrhosis of liver (2) Hypokalemia Status: Resolved (3) Acute kidney injury Status: Acute (4) Pleural effusion Status: Acute (5) Elevated troponin Status: Resolved (6) Hyperchloremic metabolic acidosis Status: Acute (7) Dementia Status: Chronic Qualifiers: Dementia type: Alzheimer's disease Alzheimer's disease onset: unspecified onset Dementia behavioral disturbance: without behavioral disturbance Qualified Code(s): G30.9 - Alzheimer's disease, unspecified; F02.80 - Dementia in other diseases classified elsewhere without behavioral disturbance (8) Lumbar vertebral fracture Status: Acute Qualifiers: Encounter type: initial encounter Lumbar vertebra fracture level: L4 Fracture type: closed Fracture morphology: other fracture Qualified Code(s) : S32.048A - Other fracture of fourth lumbar vertebra, initial encounter for closed fracture (9) Acute respiratory failure with hypoxia Status: Acute (10) Delirium Status: Resolved (11) Goals of care, counseling/discussion Status: Acute (12) Leukocytosis Status: Acute Hospital course: Mr. Meneses is a 82 year old male - Time Spent with Patient Total time spent providing and/or coordinating discharge services: Date of admission: 12/10/17 09:58 Primary care physician: Ki Lewis MD Consults: 12/10/17 09:59 Consult to Interventional Radiology [CONS] Stat Consulting Provider: Radiology Interventional Cols Reason for Consult: R pleural effusion Call Completed: Yes 12/10/17 13:40 Consult to Palliative Care [CONS] Routine Comment: Consulting Provider: Palliative Care Jessica Reason for Consult: Goals of care Call Completed: Yes 12/11/17 10:06 Consult to Pulmonology [CONS] Routine Consulting Provider: Pulm Crit [facility] [place] Reason for Consult: recurring right pleural effusion in setting of decomplensated liver cirrhosis Time Notified: 10:07 Call Completed: Yes - Constitutional Vitals: Temp Pulse Resp BP Pulse Ox 98.3 F 88 18 109/49 90 12/13/17 15:36 12/13/17 15:36 12/13/17 15:36 12/13/17 15:36 12/13/17 15:36 - Attending Attestation I examined this patient and my medical decision-making was reviewed with the Resident Physician. I agree with the documented findings, disposition and treatment plan as described except to the extent set forth below.
[2017-12-13 15:38] VITALS: BP 109/49
== END 2017-12-13 19:36 | disposition hospice, inpatient (51) | DRG 186 ==
LOC: 2NENU 13:25 → EMEROO 13:25 → SUATTDRO 15:21 → 2NENU 15:52
PROVIDERS: ADMIT Family Medicine; ATTEND Internal Medicine